=== PATIENT | male | born 1995 | race Caucasian/White ===

== ENCOUNTER 2023-12-22 00:06 | Inpatient (IN) | payer MEDICAID, OTHER ==
[2023-12-22] MEDS ORDERED: HALOPERIDOL LACTATE 5 MG/ML 1 ML VIAL IM PRN (04:12)
[2023-12-22] MEDS ORDERED: LORazepam 2 MG/ML INJ IM PRN (04:12)
[2023-12-22] MEDS ORDERED: MAG HYDROX/AL HYDROX/SIMETH 355 ML BOTTLE PO PRN (04:12)
[2023-12-22] MEDS ORDERED: MAGNESIUM HYDROXIDE 2,400 MG/30 ML CUP PO PRN (04:12)
[2023-12-22] MEDS: LORazepam 1 MG TAB PO PRN (08:18)
[2023-12-22] MEDS ORDERED: LORazepam 1 MG TAB ONE (08:18)
[2023-12-22] MEDS: haloperidoL 5 MG TAB PO PRN (14:07)
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
[2023-12-22] MEDS: PALIPERIDONE 3 MG TAB.ER.24 PO SCH (21:06)
--- NOTE | 2023-12-23 05:24 | P.MDCNMH ---
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 He reports having some discomfort inside his mouth and plaques denies any nausea or vomiting denies any sore throat denies any fevers chills denies any coughing runny nose. -year-old spoke reported bloody bowel movements and blood on wiping however this has not been confirmed by nursing staff patient was advised He experienced an episode like this to keep samples to show nursing staff to confirm diagnosis. He claims that this been going on for at least 8 months Patient otherwise denies any abdominal pain denies any chest pain trouble breathing denies any changes in his urination. Patient denies tobacco smoking illicit drugs or heavy alcohol review of systems Pertinent positives as noted in HPI. All other systems were reviewed and are negative on exam Constitutional: No acute distress, depressed mood Eyes: Anicteric sclerae, moist conjunctiva, Pupils equal round reactive to light ENMT: NC/AT Oropharynx clear, no erythema, or exudates Lungs: Clear to auscultation Clear to percussion Normal respiratory effort, no accessory muscle use Cardiovascular: Heart regular in rate and rhythm, No murmurs, gallops, or rubs No peripheral edema Abdominal: Soft Nontender, no guarding, rebound or rigidity Abdomen moving with respiration Normoactive bowel sounds Skin facial acne and upper chest acne Extremities: No digital cyanosis No clubbing Pedal pulses intact and symmetrical Radial pulses intact and symmetrical No calf tenderness Psychiatric: Alert and oriented to person, place and time Neuro Muscles Strength 4/5 in all 4 extremities Sensation to light touch grossly present throughout Cranial nerves II-XII grossly intact Medications and Allergies Allergies Allergy/AdvReac Type Severity Reaction Status Date / Time No Known Allergies Allergy Verified 12/22/23 04:11 Cranial Nerve Examination - Cranial Nerves Cranial Nerve II- Optic: Intact Cranial Nerve III- Oculomotor: Intact Cranial Nerve IV- Trochlear: Intact Cranial Nerve V- Trigeminal: Intact Cranial Nerve - Abducens: Intact Cranial Nerve VII- Facial: Intact Cranial Nerve VIII- Auditory: Intact Cranial Nerve IX- Glossopharyngeal: Intact Cranial Nerve X- Vagus: Intact Cranial Nerve XI- Accessory: Intact Cranial Nerve XII- Hypoglossal: Intact Assessment and Plan Assessment: No labs available for revision at this time Concerns regarding possible GI bleed Patient advised to show nursing staff samples of his stool and blood on the wipes Check FOBT Concerns regarding oral thrush Nystatin p.o. 4 times daily Obesity Patient advised regarding lifestyle modification weight loss Follow-up blood work Depression suicidal ideation Management per psych Thank you for this consultation
[2023-12-23] MEDS: NYSTATIN 100,000 UNIT/ML SUSP 500,000 UNIT/5 ML CUP PO SCH (08:40)
[2023-12-23] MEDS: SERTRALINE 50 MG TAB PO SCH (08:40)
[2023-12-23 10:44] LABS: Basophils # (A) 0.1 k/uL (0-0.2); Basophils % (A) 1 %; Eosinophils # (A) 0.2 k/uL (0-0.7); Eosinophils % (A) 4 %; HCT 43.3 % (39.0-53.0); Lymphocytes % (A) 17 %; MCH 28.1 pg (25.0-35.0); MCHC 32.4 g/dL (31.0-37.0); MCV 86.6 fL (80.0-100.0); Mean Platelet Volume 7.5; Monocytes # (A) 0.3 k/uL (0-1.0); Monocytes % (A) 6 %; Neutrophils # (A) 3.9 k/uL (1.3-7.7); Neutrophils % (A) 71 %; Platelet Count 382 k/uL (150-450); RDW 12.5 % (11.5-15.5); WBC 5.5 k/uL (3.8-10.6)
[2023-12-23 10:56] LABS: ALT 24 U/L (4-49); AST 21 U/L (17-59); African American GFR (CKD) >90 (>60 ml/min/1.73 sqM); Albumin 4.4 g/dL (3.5-5.0); Alkaline Phosphatase 70 U/L (38-126); Anion Gap 11 mmol/L; Blood Urea Nitrogen 16 mg/dL (9-20); Calcium 9.7 mg/dL (8.4-10.2); Carbon Dioxide 24 mmol/L (22-30); Chloride 105 mmol/L (98-107); Glucose 111 mg/dL (74-99); Non-African American GFR(CKD) >90 (>60 ml/min/1.73 sqM); Potassium 4.2 mmol/L (3.5-5.1); Sodium 140 mmol/L (137-145); Total Bilirubin 0.6 mg/dL (0.2-1.3); Total Protein 7.4 g/dL (6.3-8.2)
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
[2023-12-24 08:58] LABS: Chol/HDL Ratio 3.41 Ratio; VLDL Calculation 13.78 mg/dL (5.00-40.00)
[2023-12-24] MEDS: hydrOXYzine HCL 25 MG TAB PO PRN (20:19)
--- NOTE | 2023-12-25 09:52 | P.PN ---
Progress Note - Text Progress Note Date: 12/25/23 In-Patient Follow-up Chief Complaint: "Lot of anxiety" Subjective: The patient continues to complain of lot of anxiety. He has been using Ativan. Suggested to use Hydroxyzine instead of Ativen due to it's addiction potnetial. The patient agreed. The patient is also c/o of hearing voices. The patient notd that they are still derogatory and want him to kill himself. The patient is not attending groups. He stays to himself. his appetite is poor. The patient feels depressed. Overall, not much improvement. The Invega increased to 6 mg po qhs. The patient's prognosis is gaurded. Leading questions: The patient admitted to Depression and Anxiety. Adimts to SI. HI denied. Adimmted to symptoms consistent with psychosis Hearing voices telling him to kill himself. Sleep and Appetite: Sleep poor. Appetite fine. Behavioral Changes: PRN meds/isolation/restraints/ change in status: None. Change in medical condition: No change. Change in medications: No change. Invega increased to 6 mg po qh. Side effects from Medications: None. Objective- MSE: Alert and attentive. Orientation times three. Dressed and Groomed: Appropriately. Pleasant and cooperative. Psychomotor Activity: Normal. Speech: Normal in tone, quality, and quantity. Mood Depressed and anxious. Affect: Flat, withdrawn SI or HI: Positive for suicide. No homicidal ideation. Perceptual disturbance: Command hallucinations. Thought Content: No paranoia or other delusional thinking noted. Thought Process: Normal. Cognition: Intact Judgment and Insight: Poor. AIMS: Normal. Labs: Reviewed with patients. Diagnosis: no change. Plan and recommendation: Continue current Medications. Increase invega to 6 mg hs. Monitor MS and side effects of medications and adjust medications accordingly. Provide supportive psychotherapy. The patient provided psycho-education. The patient to continue attending the [facility]. Medication Consent with explanation of risk/benefits and side effects: Explainedand obtained
[2023-12-25] MEDS: PALIPERIDONE 6 MG TAB.ER.24 PO SCH (21:15)
--- NOTE | 2023-12-26 16:07 | P.PN ---
Progress Note - Text Progress Note Date: 12/26/23 Follow-up Mediation Review Chief Complaint: I am still hearing voices Subjective: The patient noted that he keeps hearing the voices and they continue to tell me to kill myself. The patient feels that medication may not be working. Discussed alternate agents, the patient agreed for Haldol after weighing risks/benefits and side effects. The patient also indicated that has no desire to get out of the bed. He feels tired. He has not been attending groups. His interaction with staff and peers is poor. He spends most of his time in his room. Leading questions: The patient admitted to Depression and Anxiety. Admitted to SI. Denied HI. Admitted to auditory hallucinations. No other symptoms consistent with psychosis Sleep and Appetite: Sleep impaired. Appetite fine. Change in family/ living/job/financial/daily routine: Homeless. The patient did talk to his father. He is supportive but does not want him home. Change in medical condition: No change. Change in medications: No change. Side effects from Medications: None. Allergies: No change. Objective- MSE: Alert and attentive. Orientation times three. Dressed and Groomed: Appropriately. Pleasant and cooperative. Psychomotor Activity: Normal. Speech: Normal in tone, quality, and quantity. Mood: Depressed and anxious. Affect: Consistent. SI or HI: None. Perceptual disturbance: None. Thought Content: No paranoia or other delusional thinking noted. Thought Process: Normal. Cognition: Intact Judgment and Insight: Poor. AIMS: Normal. Labs: No new labs. Diagnosis: No change. Plan and Recommendations: Continue current Medications. Monitor MS and side effects of medications and adjust medications accordingly. Provide supportive psychotherapy. Provide psychoeducation. The patient to attend [facility]. Medication Consent with explanation of risk/benefits and side effects: Explained and obtained.
[2023-12-26] MEDS: haloperidoL 1 MG TAB PO SCH (21:31)
--- NOTE | 2023-12-27 16:55 | P.PN ---
Progress Note - Text Progress Note Date: 12/27/23 Follow-up Mediation Review Chief Complaint: I am still hearing voices Subjective: The patient noted that he keeps hearing, the voices and they continue to tell me to kill myself. The patient feels that medication may not be working. The patient still spending most of his time in bed. Increase in Zoloft and Haldol was discussed, the patient agreed. The patient remain withdrawn, isolated and very negative. The patient noted that he needs to go to someplace where he can be provided meals and medications. 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 He stated that he cannot take medications or cook. He noted that this leads to be him getting depressed and eventually the voices tell him to kill himself. He sees no hope. He noted that medication helps but depression returns due to his situation. He has not been attending groups. His interaction with staff and peers is poor. He spends most of his time in his room. Leading questions: The patient admitted to Depression and Anxiety. Admitted to SI. Denied HI. Admitted to auditory hallucinations. No other symptoms consistent with psychosis Sleep and Appetite: Sleep impaired. Appetite fine. Change in family/ living/job/financial/daily routine: Homeless. The patient did talk to his father. He is supportive but does not want him home. Change in medical condition: No change. Change in medications: No change. Side effects from Medications: None. Allergies: No change. Objective- MSE: Alert and attentive. Orientation times three. Dressed and Groomed: Appropriately. Pleasant and cooperative. Psychomotor Activity: Normal. Speech: Normal in tone, quality, and quantity. Mood: Depressed and anxious. Affect: Consistent. SI or HI: None. Perceptual disturbance: None. Thought Content: No paranoia or other delusional thinking noted. Thought Process: Normal. Cognition: Intact Judgment and Insight: Poor. AIMS: Normal. Labs: No new labs. Diagnosis: No change. Plan and Recommendations: Continue current Medications. Monitor MS and side effects of medications and adjust medications accordingly. Provide supportive psychotherapy. Provide psychoeducation. The patient to attend [facility] activities. Medication Consent with explanation of risk/benefits and side effects: Explained and obtained.
[2023-12-27] MEDS: haloperidoL 5 MG TAB PO SCH (22:15)
[2023-12-28] MEDS: SERTRALINE 100 MG TAB PO SCH (08:27)
--- NOTE | 2023-12-28 17:05 | P.PN ---
Progress Note - Text Progress Note Date: 12/28/23 Follow-up Mediation Review Chief Complaint: I am still hearing voices Subjective: The patient noted that he keeps hearing, the voices and they continue to tell him to kill myself. The patient feels that medication may not be working. The patient reported feeling frustrated and hopeless. He sees no way out of his situation. He sees no light at the end of the tunnel. He does not want to continue like this. . He has not been attending groups. His interaction with staff and peers is poor. He spends most of his time in his room. Leading questions: The patient admitted to Depression and Anxiety. Admitted to SI. Denied HI. Admitted to auditory hallucinations. No other symptoms consistent with psychosis Sleep and Appetite: Sleep impaired. Appetite fine. Change in family/ living/job/financial/daily routine: Homeless. The patient did talk to his father. He is supportive but does not want him home. Change in medical condition: No change. Change in medications: No change. Side effects from Medications: None. Allergies: No change. Objective- MSE: Alert and attentive. Orientation times three. Dressed and Groomed: Appropriately. Pleasant and cooperative. Psychomotor Activity: Normal. Speech: Normal in tone, quality, and quantity. Mood: Depressed and anxious. Affect: Consistent. SI or HI: None. Perceptual disturbance: None. Thought Content: No paranoia or other delusional thinking noted. Thought Process: Normal. Cognition: Intact Judgment and Insight: Poor. AIMS: Normal. Labs: No new labs. Diagnosis: No change. Plan and Recommendations: Continue current Medications. Monitor MS and side effects of medications and adjust medications accordingly. Provide supportive psychotherapy. Provide psychoeducation. The patient to attend [facility]. Medication Consent with explanation of risk/benefits and side effects: Explained and obtained.
--- NOTE | 2023-12-29 15:12 | P.PN ---
Progress Note - Text Progress Note Date: 12/29/23 Follow-up Mediation Review Chief Complaint: I am still hearing voices Subjective: The patient noted that he keeps hearing, the voices and they continue to tell me to kill myself. The patient reports that he is anxious and depressed. The patient reported feeling frustrated and hopeless. The patient was gently redirected and suggested to be more independent and not focus on being helpless. The patient noted that he has worked with Brdaley, his counselor, for placement but nothing works. According to the [facility]. A request through [facility] was made for special [facility] but the patient was rejected because he was assessed to be capable of taking medications and cooking. The further noted that it is not living situation alone but the voices and depression is bothering him too. Severe. He does not see much improvement. . He has not been attending groups. His interaction with staff and peers is poor. He spends most of his time in his room. Leading questions: The patient admitted to Depression and Anxiety. Admitted to SI. Denied HI. Admitted to auditory hallucinations. No other symptoms consistent with psychosis Sleep and Appetite: Sleep impaired. Appetite fine. Change in family/ living/job/financial/daily routine: Homeless. The patient did talk to his father. He is supportive but does not want him home. Change in medical condition: No change. Change in medications: No change. Side effects from Medications: None. Allergies: No change. Objective- MSE: Alert and attentive. Orientation times three. Dressed and Groomed: Appropriately. Pleasant and cooperative. Psychomotor Activity: Normal. Speech: Normal in tone, quality, and quantity. Mood: Depressed and anxious. Affect: Consistent with mood. SI or HI: The patient hearing voices to kill himself. He feels suicidal. Denied Homicidal thoughts. Perceptual disturbance: No over hallucinatory behavior noted. Thought Content: No paranoia or other delusional thinking noted. Thought Process: Normal. Cognition: Intact Judgment and Insight: Poor. AIMS: Normal. Labs: No new labs. Diagnosis: No change. Plan and Recommendations: Continue current Medications. Monitor MS and side effects of medications and adjust medications accordingly. Provide supportive psychotherapy. Provide psychoeducation. The patient to attend [facility] activities. Medication Consent with explanation of risk/benefits and side effects: Explained and obtained.
[2023-12-30] MEDS: SERTRALINE 100 MG TAB PO SCH (08:21)
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
--- NOTE | 2023-12-31 08:59 | P.PN ---
Subjective Progress Note Date: 12/31/23 Principal diagnosis: Schizoaffective disorder, depressed type. Congenital musculoskeletal disorder Patient Name: Oleg Crowe Date of : [birth year] Patient Status: Inpatient Attending Provider: Cyril Dumas Date: 12/30/23 Initialization Date: 12/29/23 15:11 The patient was seen and chart was reviewed and case discussed with nursing staff Patient was seen in as he was walking down the hallway and agreed to talk to t his securities underwriter Patient again brought up his placement in his current needs due to his impaired physical abilities as well as since he ate the feces Patient continues to reiterate about needing a residential home where he could have more support and help Patient states that he has been depressed and that he still has some suicidal thoughts but no plans at this time Mental status examination: Alert and attentive. Orientation times three Dressed and Groomed: In hospital gown significant acne on his face cooperative. Psychomotor Activity: Normal. Speech: N monotone voice quality, and quantity. Mood: Depressed and anxious. Affect: Consistent with mood. SI or HI: The patient notes that he is suicidal. He does not have homicidal ideation t present. Perceptual disturbance: . The patient claims to be hearing voices. Thought Content: No paranoia or other delusional thinking noted. Thought Process: Normal. Cognition: Intact Judgment and Insight: Poor. AIMS: Normal Labs: Available labs reviewed. Diagnosis: Schizoaffective disorder, depressed type. Plan and Recommendations: Agree with Dr. Cheng treatment plan Continue current medications as prescribed Monitor MS and side effects of medications and adjust medications accordingly. Provide supportive psychotherapy and psychoeducation. The patient provided psychoeducation. The patient provided with substance abuse counselling and advised to attend AA The patient to attend [facility]. technical services analyst on board regarding discharge planning Ace Upton MD Active Medications Generic Name Dose Route Start Last Admin Trade Name Freq PRN Reason Stop Dose Admin Acetaminophen 650 mg 12/22/23 04:12 Acetaminophen Tab 325 Mg Tab PO Q4HR PRN Mild Pain (Scale 1 to 3) Al Hydroxide/Mg Hydroxide 30 ml 12/22/23 04:12 Mag Hydrox/Al Hydrox/Simeth 355 Ml Bottle PO Q4HR PRN GI Upset Haloperidol 5 mg 12/22/23 04:12 12/25/23 21:17 Haloperidol 5 Mg Tab PO 5 mg Q6HR PRN Administration Agitation Haloperidol 5 mg 12/27/23 21:00 12/30/23 08:21 Haloperidol 5 Mg Tab PO 5 mg BID REJI Administration Haloperidol Lactate 5 mg 12/22/23 04:12 Haloperidol Lactate 5 Mg/Ml 1 Ml Vial IM Q6HR PRN Severe Agitation Hydroxyzine HCl 25 mg 12/22/23 14:15 12/28/23 13:40 Hydroxyzine Hcl 25 Mg Tab PO 25 mg TID PRN Administration Agitation or Acute Anxiety Ibuprofen 600 mg 12/22/23 04:12 Ibuprofen 600 Mg Tab PO Q6HR PRN Moderate Pain (Scale 4 to 6) Lorazepam 1 mg 12/22/23 04:12 12/29/23 13:43 Lorazepam 1 Mg Tab PO 1 mg Q6HR PRN Administration Anxiety Lorazepam 1 mg 12/22/23 04:12 Lorazepam 2 Mg/Ml Inj IM Q6HR PRN Severe Agitation Magnesium Hydroxide 2,400 mg 12/22/23 04:12 Magnesium Hydroxide 2,400 Mg/30 Ml Cup PO DAILY PRN Constipation Nystatin 500,000 unit 12/23/23 09:00 12/30/23 08:21 Nystatin 100,000 Unit/Ml Susp 500,000 Unit/5 Ml Cup PO 500,000 unit QID REJI Administration Protocol Sertraline HCl 150 mg 12/30/23 09:00 12/30/23 08:21 Sertraline 100 Mg Tab PO 150 mg DAILY REJI Administration Objective - Vital Signs Vital signs: Vital Signs Temp 98.0 F 12/31/23 06:36 Pulse 52 L 12/31/23 06:36 Resp 16 12/31/23 06:36 BP 110/52 12/31/23 06:36 Pulse Ox 98 12/31/23 06:36 FiO2 - Labs CBC & Chem 7: 12/23/23 09:58 12/23/23 09:58
[2024-01-01] MEDS: haloperidoL 5 MG TAB PO SCH (16:33)
--- NOTE | 2024-01-01 21:54 | P.PN ---
Progress Note - Text Progress Note Date: 01/01/24 Follow-up Mediation Review Chief Complaint: I am still hearing voices Subjective: The patient noted that he keeps hearing voices. The patient noted that he feels depressed and anxious. He noted that he needs a staffed [place] [facility]. He does not want to live in motels. He has not been attending groups. His interaction with staff and peers is poor. He spends most of his time in his room. Leading questions: The patient admitted to Depression and Anxiety. Admitted to SI. Denied HI. Admitted to auditory hallucinations. No other symptoms consistent with psychosis Sleep and Appetite: Sleep impaired. Appetite fine. Change in family/ living/job/financial/daily routine: Homeless. Change in medical condition: No change. Change in medications: No change. Side effects from Medications: None. Allergies: No change. Objective- MSE: Alert and attentive. Orientation times three. Dressed and Groomed: Appropriately. Pleasant and cooperative. Psychomotor Activity: Normal. Speech: Normal in tone, quality, and quantity. Mood: Depressed and anxious. Affect: Consistent with mood. SI or HI: The patient hearing voices to kill himself. He feels suicidal. Denied Homicidal thoughts. Perceptual disturbance: No overt hallucinatory behavior noted. Thought Content: No paranoia or other delusional thinking noted. Thought Process: Normal. Cognition: Intact Judgment and Insight: Poor. AIMS: Normal. Labs: No new labs. Diagnosis: No change. Plan and Recommendations: Continue current Medications. Increased Zoloft to 200 mg po daily. Haldol blood level ordered. Haldol increased to 15 mg po tid. Monitor MS and side effects of medications and adjust medications accordingly. Suggested to obtain report of patients training/rehab for cooking and taking medications independently from [facility] food general manager. Provide supportive psychotherapy. Provide psychoeducation. The patient to attend [facility]. Medication Consent with explanation of risk/benefits and side effects: Explained and obtained.
[2024-01-02] MEDS: SERTRALINE 100 MG TAB PO SCH (08:14)
--- NOTE | 2024-01-02 20:45 | P.PN ---
Progress Note - Text Progress Note Date: 01/02/24 Follow-up Mediation Review Chief Complaint: I am still hearing voices Subjective: The patient noted that he keeps hearing voices. He complains of being mentally ill. He does not get out of his room. He stays in his bed. He goes for meals and to get his medications. He feels helpless with his situation. He remains negative and pessimistic about his future. Discussed giving an adjunctive treatment boosting the effects of antidepressant. The patient consented. He has not been attending groups. His interaction with staff and peers is poor. He spends most of his time in his room. Leading questions: The patient admitted to Depression and Anxiety. Admitted to SI. Denied HI. Admitted to auditory hallucinations. No other symptoms consistent with psychosis Sleep and Appetite: Sleep impaired. Appetite fine. Change in family/ living/job/financial/daily routine: Homeless. Change in medical condition: No change. Change in medications: No change. Side effects from Medications: None. Allergies: No change. Objective- MSE: Alert and attentive. Orientation times three. Dressed and Groomed: Appropriately. Pleasant and cooperative. Psychomotor Activity: Normal. Speech: Normal in tone, quality, and quantity. Mood: Depressed and anxious. Affect: Sad and Flat SI or HI: The patient hearing voices to kill himself. He feels suicidal. Denied Homicidal thoughts. Perceptual disturbance: No overt hallucinatory behavior noted. Thought Content: No paranoia or other delusional thinking noted. Thought Process: Normal. Cognition: Intact Judgment and Insight: Poor. AIMS: Normal. Labs: No new labs. Diagnosis: No change. Plan and Recommendations: Continue current Medications. Increased Zoloft to 200 mg po daily.Monitor MS and side effects of medications and adjust medications accordingly. Provide supportive psychotherapy. Provide psychoeducation. The patient to attend [facility] activities. Medication Consent with explanation of risk/benefits and side effects: Explained and obtained.
[2024-01-02] MEDS: LITHIUM CARBONATE 150 MG CAP PO SCH (21:49)
--- NOTE | 2024-01-03 11:54 | P.PN ---
Progress Note - Text Progress Note Date: 01/03/24 Follow-up Mediation Review Chief Complaint: I am not mentally well Subjective: The patient noted that he keeps hearing voices telling him to kill himself. I cannot get rid of these voices. I am taking my medications. He complains of being mentally ill. He does not get out of his room. He stays in his bed. He goes for meals and to get his medications. He feels helpless with his situation. He remains negative and pessimistic about his future. The patient took his Li without any side effects. He has not been attending groups. His interaction with staff and peers is poor. He spends most of his time in his room. Leading questions: The patient admitted to Depression and Anxiety. Admitted to SI. Denied HI. Admitted to command auditory hallucinations. No other symptoms consistent with psychosis Sleep and Appetite: Sleep impaired. Appetite fine. Change in family/ living/job/financial/daily routine: Homeless. Change in medical condition: No change. Change in medications: No change. Side effects from Medications: None. Allergies: No change. Objective- MSE: Alert and attentive. Orientation times three. Dressed and Groomed: Appropriately. Pleasant and cooperative. Psychomotor Activity: Normal. Speech: Normal in tone, quality, and quantity. Mood: Depressed and anxious. Affect: Sad and Flat SI or HI: The patient hearing voices to kill himself. He feels suicidal. Denied Homicidal thoughts. Perceptual disturbance: No overt hallucinatory behavior noted. Thought Content: No paranoia or other delusional thinking noted. Thought Process: Normal. Cognition: Intact Judgment and Insight: Poor. AIMS: Normal. Labs: No new labs. Diagnosis: No change. Plan and Recommendations: Continue current Medications. Increase the dose of Li to 150 mg tid. Monitor MS and side effects of medications and adjust medications accordingly. Provide supportive psychotherapy. Provide psychoeducation. The patient to attend [facility] activities. Medication Consent with explanation of risk/benefits and side effects: Explained and obtained.
--- NOTE | 2024-01-04 10:23 | P.PN ---
Progress Note - Text Progress Note Date: 01/04/24 Follow-up Mediation Review Chief Complaint: I am the same Subjective: The patient states hearing voices telling him to kill himself. He continues to negative, pessimistic, no energy, desire, interest, and hope. The patient sees no future for himself. He continues to be isolated. Sleeps in bed. He only comes out the room to eat and take his medication. He reported no side effects from LI. Discussed increase the dose to 300 mg twice a day. The patient consented He has not been attending groups. His interaction with staff and peers is poor. He spends most of his time in his room. Leading questions: The patient admitted to Depression and Anxiety. Admitted to SI. Denied HI. Admitted to command auditory hallucinations. No other symptoms consistent with psychosis Sleep and Appetite: Sleep impaired. Appetite fine. Change in family/ living/job/financial/daily routine: Homeless. Change in medical condition: No change. Change in medications: No change. Side effects from Medications: None. Allergies: No change. Objective- MSE: Alert and attentive. Orientation times three. Dressed and Groomed: Appropriately. Pleasant and cooperative. Psychomotor Activity: Normal. Speech: Normal in tone, quality, and underproductive. The patient does not initiate conversation. Mood: Depressed and anxious. Affect: Sad and Flat SI or HI: The patient hearing voices to kill himself. He feels suicidal. Denied Homicidal thoughts. Perceptual disturbance: No overt hallucinatory behavior noted. Thought Content: No paranoia or other delusional thinking noted. Thought Process: Normal. Cognition: Intact Judgment and Insight: Poor. AIMS: Normal. Labs: No new labs. Diagnosis: No change. Plan and Recommendations: Continue current Medications. Increase the dose of Li to 300 bid. Monitor MS and side effects of medications and adjust medications accordingly. Provide supportive psychotherapy. Provide psychoeducation. The patient to attend [facility] activities. Medication Consent with explanation of risk/benefits and side effects: Explained and obtained.
--- NOTE | 2024-01-05 16:59 | P.PN ---
Progress Note - Text Progress Note Date: 01/05/24 Follow-up Mediation Review Chief Complaint: The patient remains the same Subjective: The patient states hearing voices telling him to kill himself. He continues to be negative, pessimistic, tired. He has no interest, or hope. The patient sees no future for himself. He continues to be isolated. Sleeps in bed. He only comes out the room to eat and take his medication. He reported no side effects from LI. Discussed increase the dose to 300 mg twice a day. The patient consented He has not been attending groups. His interaction with staff and peers is poor. He spends most of his time in his room. Leading questions: The patient admitted to Depression and Anxiety. Admitted to S I. Denied HI. Admitted to command auditory hallucinations. No other symptoms consistent with psychosis Sleep and Appetite: Sleep impaired. Appetite fine. Change in family/ living/job/financial/daily routine: Homeless. Change in medical condition: No change. Change in medications: No change. Side effects from Medications: None. Allergies: No change. Objective- MSE: Alert and attentive. Orientation times three. Dressed and Groomed: Appropriately. Pleasant and cooperative. Psychomotor Activity: Normal. Speech: Normal in tone, quality, and underproductive. The patient does not initiate conversation. Mood: Depressed and anxious. Affect: Sad and Flat SI or HI: The patient hearing voices to kill himself. He feels suicidal. Denied Homicidal thoughts. Perceptual disturbance: No overt hallucinatory behavior noted. Thought Content: No paranoia or other delusional thinking noted. Thought Process: Normal. Cognition: Intact Judgment and Insight: Poor. AIMS: Normal. Labs: No new labs. Diagnosis: No change. Plan and Recommendations: Continue current Medications. Fishtail increased to 300 mg bid. Monitor MS and side effects of medications and adjust medications accordingly. Provide supportive psychotherapy. Provide psychoeducation. The patient to attend [facility] activities. Medication Consent with explanation of risk/benefits and side effects: Explained and obtained.
[2024-01-05] MEDS: LITHIUM CARBONATE 300 MG CAP PO SCH (21:14)
--- NOTE | 2024-01-06 14:19 | P.PN ---
Subjective Progress Note Date: 01/06/24 Principal diagnosis: Schizoaffective depressed Subjective the patient says he has no energy can't concentrate anxiety is fairly well controlled. He says is tolerating the new medicine okay he was on intake and that was stopped and replaced with lithium is just getting started on that. Says he slept okay appetites good just has no energy. Objective he moves slow lying in bed all day flat affect slow responses no eye contact denies any psychotic elements. He is oriented speech does not MIs content one-word responses. No evidence of responding to voices or seeing anything. Self-care is minimal is in a hospital gown. Assessment patient definitely not doing well depression is severe and is on huge dose of Zoloft were adding lithium as is pretty good for depression and moods in general although at some point he might want to consider Wellbutrin for energy and focus is that is really low Plan: at this point leave medicine word sat find out whether he tolerates the lithium and hopefully get some benefit from that he also needs some social work help figuring out where to go from here he has no supports and no people in his life Objective - Vital Signs Vital signs: Vital Signs Temp 97.9 F 01/06/24 06:00 Pulse 60 01/06/24 06:00 Resp 17 01/06/24 06:00 BP 103/58 01/06/24 06:00 Pulse Ox 95 01/06/24 06:00 FiO2 - Labs CBC & Chem 7: 12/23/23 09:58 12/23/23 09:58
--- NOTE | 2024-01-07 09:38 | P.PN ---
Subjective Progress Note Date: 01/07/24 Principal diagnosis: Schizoaffective depressed Subjective: The patient says he has no energy can't concentrate anxiety is fairly well controlled. He says that he is tolerating the new medicine okay. He said he didn't have to get up in the night to urinate like galina before a lthough he is urinating somewhat more often during the day however he did not sleep well says he gets to sleep but then wakes up and has trouble going back to sleep. He says he is never taken trazodone or melatonin past. Trazodone can extend the QTc interval which U she had 50 mg as not a problem. Objective: he moves slow lying in bed all day flat affect slow responses no eye contact denies any psychotic elements. He is oriented speech does not MIs content one-word responses. No evidence of responding to voices or seeing anything. Self-care is minimal is in a hospital gown. Assessment: The patient definitely is not doing well, depression is severe and is on huge dose of Zoloft. We are adding lithium as is pretty good for depression and moods in general although at some point he might want to consider Wellbutrin for energy and focus is that is really low. He is not much lithium b ut was paying all the time which is usually an indication of work I think we need to grab a level tomorrow morning increase is indicated at that time. However he can get a decent night sleep that doesn't make it hard for him to stabilize so that try adding in 50 of trazodone with 2 of melatonin an hour before Plan: Add in medicine for sleep continue the low-dose lithium and get a level Objective - Vital Signs Vital signs: Vital Signs Temp 98.4 F 01/07/24 06:31 Pulse 61 01/07/24 06:31 Resp 16 01/07/24 06:31 BP 97/53 01/07/24 06:31 Pulse Ox 95 01/06/24 06:00 FiO2 - Labs CBC & Chem 7: 12/23/23 09:58 12/23/23 09:58
[2024-01-07] MEDS: MELATONIN 1 MG TAB PO SCH (21:07)
[2024-01-07] MEDS: traZODone HCL 50 MG TAB PO SCH (21:07)
--- NOTE | 2024-01-08 17:01 | P.PN ---
Progress Note - Text Progress Note Date: 01/08/24 Follow-up Mediation Review Chief Complaint: The patient remains the same Subjective: The patient states hearing voices telling him to kill himself. He continues to be negative, pessimistic, tired. He rated his depression at 0 on VAS. 10 being the best mood and 0 being the worst. The patient exhibited no EPS. The patient sees no future for himself. He continues to be isolated. Sleeps in bed. He only comes out the room to eat and take his medication. He reported no side effects from medications. Discussed increasing [place] to 300 mg tid and changing Zoloft to Effexor. Decrease Zoloft to 100 mg. Add Effexor after tapering off Zoloft to 50 mg.The patient has side effects from Wellbutrin. He has not been attending groups. His interaction with staff and peers is poor. He spends most of his time in his room. Leading questions: The patient admitted to Depression and Anxiety. Admitted to SI. Denied HI. Admitted to command auditory hallucinations. No other symptoms consistent with psychosis Sleep and Appetite: Sleep impaired. Appetite fine. Change in family/ living/job/financial/daily routine: Homeless, unemployed, no family support. Change in medical condition: No change. Change in medications: As stated above. Side effects from Medications: None. All Objective- MSE: Alert and attentive. Orientation times three. Dressed and Groomed: Appropriately. Pleasant and cooperative. Psychomotor Activity: Normal. Speech: Normal in tone, quality, and underproductive. The patient does not initiate conversation. Mood: Depressed and anxious. Affect: Sad and Flat SI or HI: The patient hearing voices to kill himself. He feels suicidal. Denied Homicidal thoughts. Perceptual disturbance: No overt hallucinatory behavior noted. Thought Content: No paranoia or other delusional thinking noted. Thought Process: Normal. Cognition: Intact Judgment and Insight: Poor. AIMS: Normal. Labs: Haldol Level 6. Diagnosis: No change. Plan and Recommendations: Continue current Medications. [place] increased to 300 mg tid. Decrease Zoloft to 100 mg daily.Monitor MS and side effects of medications and adjust medications accordingly. Provide supportive psychotherapy. Provide psychoeducation. The patient to attend carrington activities. Medication Consent with explanation of risk/benefits and side effects: Explained and obtained.
[2024-01-08] MEDS: LITHIUM CARBONATE 300 MG CAP PO SCH (21:01)
[2024-01-09] MEDS: SERTRALINE 100 MG TAB PO SCH (08:44)
--- NOTE | 2024-01-09 12:58 | P.PN ---
Progress Note - Text Progress Note Date: 01/09/24 Follow-up Mediation Review Chief Complaint: The patient remains the same Subjective: The patient states hearing voices telling him to kill himself. He continues to be negative, pessimistic, tired. The patient exhibited no EPS. The patient sees no future for himself. He continues to be isolated. Sleeps in bed. He only comes out the room to eat and take his medication. He reported no side effects from medications. discussed with patient Ketamine and ECT treatments, if the current regimen fails. The patient has expressed interest in ECT. The process to send patient for ECT has been initiated. He has not been attending groups. His interaction with staff and peers is poor. He spends most of his time in his room. Leading questions: The patient admitted to Depression and Anxiety. Admitted to SI. Denied HI. Admitted to command auditory hallucinations. No other symptoms consistent with psychosis Sleep and Appetite: Sleep impaired. Appetite fine. Change in family/ living/job/financial/daily routine: Homeless, unemployed, no family support. Change in medical condition: No change. Change in medications: As stated above. Side effects from Medications: None. All Objective- MSE: Alert and attentive. Orientation times three. Dressed and Groomed: Appropriately. Pleasant and cooperative. Psychomotor Activity: Normal. Speech: Normal in tone, quality, and underproductive. The patient does not initiate conversation. Mood: Depressed and anxious. Affect: Sad and Flat SI or HI: The patient hearing voices to kill himself. He feels suicidal. Denied Homicidal thoughts. Perceptual disturbance: No overt hallucinatory behavior noted. Thought Content: No paranoia or other delusional thinking noted. Thought Process: Normal. Cognition: Intact Judgment and Insight: Poor. AIMS: Normal. Labs: Haldol Level 6. Diagnosis: No change. Plan and Recommendations: Continue current Medications. .Monitor MS and side effects of medications and adjust medications accordingly. Provide supportive psychotherapy. Provide psychoeducation. The patient to attend carrington activities. Medication Consent with explanation of risk/benefits and side effects: Explained and obtained.
--- NOTE | 2024-01-10 11:55 | P.PN ---
Progress Note - Text Progress Note Date: 01/10/24 Follow-up Mediation Review Chief Complaint: The am no good Subjective: The patient states hearing voices telling him to kill himself. He continues to be negative, pessimistic, tired. He sees no improvement with adding Li. Explained patient that Zoloft will be reduced to 50 mg and Wellbutrin will be added. Contrary to before the patient noted that he took Wellbutrin only one time. He stated that he did not have any side effects or benefit. Overall, no change in patients MS He has not been attending groups. His interaction with staff and peers is poor. He spends most of his time in his room. Leading questions: The patient admitted to Depression and Anxiety. Admitted to SI. Denied HI. Admitted to command auditory hallucinations. No other symptoms consistent with psychosis Sleep and Appetite: Sleep impaired. Appetite fine. Change in family/ living/job/financial/daily routine: No change. Change in medical condition: No change. Change in medications: As stated above. Side effects from Medications: None. All Objective- MSE: Alert and attentive. Orientation times three. Dressed and Groomed: Appropriately. Pleasant and cooperative. Psychomotor Activity: Normal. Speech: Normal in tone, quality, and underproductive. The patient does not initiate conversation. Mood: Depressed and anxious. Affect: Sad and Flat SI or HI: The patient hearing voices to kill himself. He feels suicidal. Denied Homicidal thoughts. Perceptual disturbance: No overt hallucinatory behavior noted. Thought Content: No paranoia or other delusional thinking noted. Thought Process: Normal. Cognition: Intact Judgment and Insight: Poor. AIMS: Normal. Labs: No new labs. Ordered Li level Diagnosis: No change. Plan and Recommendations: Continue current Medications. Add Wellbutrin 100 mg po daily. Monitor MS and side effects of medications and adjust medications accordingly. Provide supportive psychotherapy. Provide psychoeducation. The patient to attend carrington activities. Medication Consent with explanation of risk/benefits and side effects: Explained and obtained.
[2024-01-11] MEDS: buPROPion SR 100 MG TABLET.ER PO SCH (08:37)
[2024-01-11] MEDS: SERTRALINE 50 MG TAB PO SCH (08:38)
--- NOTE | 2024-01-11 15:49 | P.PN ---
Progress Note - Text Progress Note Date: 01/11/24 Follow-up Mediation Review Chief Complaint: I feel the same Subjective: The patient continues to hear voices telling him to kill himself. He continues to stay in bed and appears resigned. He shows no strength to fight with his illness. He spends all his time in bed. He feels worthless, helpless, and very depressed. He noted that the medications are not helping. His Garceno level is 0.4. He shows some increase in acne on his face. Exacerbation of acne is one of the side effects of Garceno. Discussed with the patient. He indicated that he has had them for a longtime. He did not seem to be concerned about increased acne. Will monitor and hold off from increasing the Garceno at this time. He reported no side effects. Overall, no change in patients MS He has not been attending groups. His interaction with staff and peers is poor. He spends most of his time in his room. Leading questions: The patient admitted to Depression and Anxiety. Admitted to SI. Denied HI. Admitted to command auditory hallucinations. No other symptoms consistent with psychosis Sleep and Appetite: Sleep impaired. Appetite fine. Change in family/ living/job/financial/daily routine: No change. Change in medical condition: No change. Change in medications: As stated above. Side effects from Medications: None. All Objective- MSE: Alert and attentive. Orientation times three. Dressed and Groomed: Appropriately. Pleasant and cooperative. Psychomotor Activity: Normal. Speech: Normal in tone, quality, and underproductive. The patient does not initiate conversation. Mood: Depressed and anxious. Affect: Sad and Flat SI or HI: The patient hearing voices to kill himself. He feels suicidal. Denied Homicidal thoughts. Perceptual disturbance: No overt hallucinatory behavior noted. Thought Content: No paranoia or other delusional thinking noted. Thought Process: Normal. Cognition: Intact Judgment and Insight: Poor. AIMS: Normal. Labs: No new labs. Li level 0.4 Diagnosis: No change. Plan and Recommendations: Continue current Medications. Increase to Wellbutrin 150 mg po daily. Increase Haldol to 20 mg. Monitor MS and side effects of medications and adjust medications accordingly. Provide supportive psychotherapy. Provide psychoeducation. The patient to attend carrington activities. Medication Consent with explanation of risk/benefits and side effects: Explained and obtained.
[2024-01-11] MEDS: haloperidoL 5 MG TAB PO SCH (21:21)
[2024-01-12] MEDS: buPROPion SR 150 MG TABLET.ER PO SCH (08:32)
--- NOTE | 2024-01-12 13:54 | P.PN ---
Progress Note - Text Progress Note Date: 01/12/24 This is a second opinion on patient's treatment and recommendation for care completed by Dr. Simon IDENTIFYING DATA: This patient is a 28-year-old male single, is homeless, no kids, no income. HISTORY OF PRESENT ILLNESS: Retail Store Associate was requested to evaluate patient for a second opinion on patient's treatment and recommendations for ECT. Patient was admitted to the mental health unit as a transfer from [facility] on 12/21, patient apparently was demonstrating auditory hallucinations, attempted suicide by trying to eat his own feces. Patient apparently was recently in alf as well, was endorsing depression and suicidal ideations auditory hallucinations. Patient has been on several different medications since being on the unit including Wellbutrin, haloperidol, Vistaril, lithium, Invega this has been discontinued, Zoloft, trazodone. Patient apparently has not been responding to his medications mainly isolating in his room not caring for self. [employer] Store Associate attempted to see patient at the bedside today after he ate lunch. Patient was agreeable to speak to senior medical writer, he appears to have a blunted affect, fairly concrete. He was attempting to cooperate. Claiming that he is still hearing voices telling him to kill himself mainly by eating feces. He claims that this has been going on for quite some time. States that he is still having the thoughts of harming himself however no specific plan, denies any visual hallucinations or homicidal ideations. He claims that he is eating fairly, sleep has been poor. He was fairly vague about his stressors however did state that he has been homeless for 3 years and has been difficult. Did claim that he was recently in alf for arson charges. He claims that he cannot think of any medications that have helped him in the past however cannot name many at all. States that he has not had ECT in the past however is open to trying it if needed. Patients admits to using no recreational drugs MENTAL STATUS EXAM: General Appearance: Patient appears to be constricted in affect, acne, short hair, wearing hospital gown stated age is alert, temps to be cooperative. Patient appears to have [fair] hygiene and grooming wearing hospital gown with poor eye contact. Behavior: [Patient is calmly lying in bed without any agitated behavior.] Vague. Speech: Patient's speech is fluent and nonpressured. Monotone. [place] Mood/Affect: Patient reports their mood is "[depressed and anxious]", affect is congruent and blunted Suicidality/Homicidality: Patient is that he is having suicidal thoughts with plans to eat his own feces, denies any homicidal ideations. Perceptions: Patient denies any visual hallucinations however he does state that he has auditory hallucinations telling him to kill himself. Though content/process: There is no evidence of any delusional thought content and thought process is linear and goal-directed. [place], no paranoia. Vague and poverty of content Memory and concentration: AOX3, grossly intact for the purposes of this session. Can spell "WORLD" backwards Judgment and insight: [poor] IMPRESSIONS: Schizoaffective disorder, depressed type PLAN: -Patient continues to require inpatient psychiatric hospitalization for further treatment of his psychotic symptoms and depression. -At this time would recommend attempting to try a TCA or MAOI for severe treatment resistant depression and also consider clozapine for psychosis -If the above medications are not helping improve his symptoms then I would agree with going forward with ECT treatment for treatment resistance. Patient states that he would agreeable to this if need be and would sign consent form.
--- NOTE | 2024-01-12 15:32 | P.PN ---
Progress Note - Text Progress Note Date: 01/12/24 Follow-up Mediation Review Chief Complaint: I feel the same Subjective: The patient continues to hear voices telling him to kill himself. He continues to stay in bed and appears resigned. He shows no strength to fight with his illness. His acne appeared slightly better. No change in Li was made. The patient will be continued on the same dose Li. His blood level is 0.7. He will be kept on combination of Wellbutrin and Zoloft to better titrate the dose with minimal side effects. The patient continues to show severe depression with much improvement at this time. He reported no side effects. Overall, no change in patients MS He has not been attending groups. His interaction with staff and peers is poor. He spends most of his time in his room. Leading questions: The patient admitted to Depression and Anxiety. Admitted to SI. Denied HI. Admitted to command auditory hallucinations. No other symptoms consistent with psychosis Sleep and Appetite: Sleep impaired. Appetite fine. Change in family/ living/job/financial/daily routine: No change. Change in medical condition: No change. Change in medications: As stated above. Side effects from Medications: None. All Objective- MSE: Alert and attentive. Orientation times three. Dressed and Groomed: Appropriately. Pleasant and cooperative. Psychomotor Activity: Normal. Speech: Low toned , quality, and underproductive. The patient does not initiate conversation. Mood: Depressed and anxious. Affect: Sad and Flat SI or HI: The patient hearing voices to kill himself. He feels suicidal. Denied Homicidal thoughts. Perceptual disturbance: No overt hallucinatory behavior noted. Thought Content: No paranoia or other delusional thinking noted. Thought Process: Normal. Cognition: Intact Judgment and Insight: Poor. AIMS: Normal. Labs: No new labs. Li level 0.4 Diagnosis: No change. Plan and Recommendations: Continue current Medications. Increase to Wellbutrin 150 mg po daily. Increase Haldol to 20 mg. Monitor MS and side effects of medications and adjust medications accordingly. Provide supportive psychotherapy. Provide psychoeducation. The patient to attend carrington activities. Medication Consent with explanation of risk/benefits and side effects: Explained and obtained.
--- NOTE | 2024-01-13 10:59 | P.PN ---
Progress Note - Text Progress Note Date: 01/13/24 Interval History: Patient was seen bedside this morning and was directable and agreeable to speak with typewriter operator automatic. He states that he has been feeling "terrible". Endorses command auditory hallucinations telling him to kill himself and to "eat my feces and drink my urine". He also endorses suicidal ideation. He does not currently feel that the medications have improved his hallucinations since yesterday. Endorses fair sleep and appetite. He has been resting in bed and is disinterested in participating on the milieu. Encouraged to color in his room and behavioral activation. Reports that he has been feeling more slowed down. Potential parkinsonism from Haldol and agreeable with Cogentin. Denies side effects otherwise. Mental Status Exam: General Appearance: Patient appears to be constricted in affect, acne, short hair, wearing hospital gown stated age is alert, temps to be cooperative. Patient appears to have [fair] hygiene and grooming wearing hospital gown with poor eye contact. Behavior: [Patient is calmly lying in bed without any agitated behavior.] Vague. Speech: Patient's speech is fluent and nonpressured. Monotone. [place] Mood/Affect: Patient reports their mood is "depressed", affect is congruent and blunted Suicidality/Homicidality: Patient is that he is having suicidal thoughts with plans to eat his own feces, denies any homicidal ideations. Perceptions: Patient denies any visual hallucinations however he does state that he has auditory hallucinations telling him to kill himself. Though content/process: There is no evidence of any delusional thought content and thought process is linear and goal-directed. [place], no paranoia. Vague and poverty of content Memory and concentration: AOX3, grossly intact for the purposes of this session. Can spell "WORLD" backwards Judgment and insight: [poor] Assessment Schizoaffective disorder, depressed type Plan: -Patient continues to meet criteria for inpatient psychiatric admission for symptom stabilization and safety. -Medications: Wellbutrin 150 mg daily, Haldol 10 mg BID, trazodone 50 mg qHS, melatonin - Start Cogentin 0.5 mg BID for parkinsonism - Agree with considering ECT/Clozapine -When necessary Vistaril and Haldol for agitation/aggression. -SW on board for discharge planning. Encouraged the patient to participate in milieu. Encouraged behavioral activation
[2024-01-13] MEDS: BENZTROPINE MESYLATE 0.5 MG TAB PO SCH (21:45)
--- NOTE | 2024-01-14 13:18 | P.PN ---
Progress Note - Text Progress Note Date: 01/14/24 Interval History: Patient was seen bedside this morning and was directable and agreeable to speak with hand sign writer. He states that he has been feeling "terrible". Endorses command auditory hallucinations telling him to kill himself and to "eat my feces and drink my urine". He also endorses suicidal ideation. He does not currently feel that the medications have improved his hallucinations. Endorses fair sleep and appetite. He has been resting in bed and is disinterested in participating on the milieu. He reports having walked more yesterday and felt that it was helpful. Reports that he has been feeling more slowed down and has not yet noticed any improvement with Cogentin. He reports having tried Invega, Zyprexa, and other antipsychotics in the past and recalls that they were not fully helpful for auditory hallucinations. Patient has been compliant with medications and denies side effects otherwise. Vital Signs Temp 97.8 F 01/13/24 06:00 Pulse 60 01/14/24 07:05 Resp 16 01/13/24 06:00 BP 103/67 01/14/24 07:05 Pulse Ox 95 01/13/24 06:00 FiO2 Mental Status Exam: General Appearance: Patient appears to be constricted in affect, acne, short hair, wearing hospital gown stated age is alert, temps to be cooperative. Patient appears to have [fair] hygiene and grooming wearing hospital gown with poor eye contact. No tremors Behavior: [Patient is calmly lying in bed without any agitated behavior.] Vague. Speech: Patient's speech is fluent and nonpressured. Monotone. [place] Mood/Affect: Patient reports their mood is "depressed", affect is congruent and blunted Suicidality/Homicidality: Patient is that he is having suicidal thoughts with plans to eat his own feces, denies any homicidal ideations. Perceptions: Patient denies any visual hallucinations however he does state that he has auditory hallucinations telling him to kill himself. Though content/process: There is no evidence of any delusional thought content and thought process is linear and goal-directed. [place], no paranoia. Vague and poverty of content Memory and concentration: AOX3, grossly intact for the purposes of this session. Can spell "WORLD" backwards Judgment and insight: [poor] AIMS: 0 Assessment Schizoaffective disorder, depressed type Plan: -Patient continues to meet criteria for inpatient psychiatric admission for symptom stabilization and safety. -Medications: Wellbutrin 150 mg daily, Haldol 10 mg BID, trazodone 50 mg qHS, melatonin -Start Prolixin 2.5 mg daily for augmentation. Patient needing dual antipsychotic regimen due to severity of psychotic symptoms not improving on monotherapy -Increase Cogentin to 1 mg BID for parkinsonism - Agree with considering ECT/changing antipsychotics to Clozapine -When necessary Vistaril and Haldol for agitation/aggression. -SW on board for discharge planning. Encouraged the patient to participate in milieu. Encouraged behavioral activation
[2024-01-14] MEDS: BENZTROPINE MESYLATE 1 MG TAB PO SCH (20:34)
--- NOTE | 2024-01-15 13:14 | P.PN ---
Progress Note - Text Progress Note Date: 01/15/24 Follow-up Mediation Review Chief Complaint: I feel the same Subjective: The patient continues to hear voices telling him to kill himself. He reports severe depression. He states feeling numb, tired, hopeless, and worthless. Discussed with patient about changing his medications. The patient reported no side effects from medications. His LI was increased to 900mg daily over the weekend. His Wellbutrin is being increased to 300mg daily today. The patient was explained. He understood and consented. He reported no side effects. Overall, no change in patients MS He has not been attending groups. His interaction with staff and peers is poor. He spends most of his time in his room. Leading questions: The patient admitted to Depression and Anxiety. Admitted to SI. Denied HI. Admitted to command auditory hallucinations. No other symptoms consistent with psychosis Sleep and Appetite: Sleep impaired. Appetite fine. Change in family/ living/job/financial/daily routine: No change. Change in medical condition: No change. Change in medications: As stated above. Side effects from Medications: None. All Objective- MSE: Alert and attentive. Orientation times three. Dressed and Groomed: Appropriately. Pleasant and cooperative. Psychomotor Activity: Normal. Speech: Low toned, quality, and underproductive. The patient does not initiate conversation. Mood: Depressed and anxious. Affect: Sad and Flat SI or HI: The patient hearing voices to kill himself. He feels suicidal. Denied Homicidal thoughts. Perceptual disturbance: No overt hallucinatory behavior noted. Thought Content: No paranoia or other delusional thinking noted. Thought Process: Normal. Cognition: Intact Judgment and Insight: Poor. AIMS: Normal. Labs: No new labs. Li ordered. Diagnosis: No change. Plan and Recommendations: Continue current Medications. Increase to Wellbutrin 300 mg po daily. MS and side effects of medications and adjust medications accordingly. Provide supportive psychotherapy. Provide psychoeducation. The patient to attend carrington activities. Medication Consent with explanation of risk/benefits and side effects: Explained and obtained
[2024-01-16] MEDS: buPROPion XL 300 MG TAB.ER.24H PO SCH (08:24)
--- NOTE | 2024-01-16 13:23 | P.PN ---
Progress Note - Text Progress Note Date: 01/16/24 Follow-up Mediation Review Chief Complaint: I feel no different Subjective: The patient noted feeling stiff and has noticed that his movement have become slow. He complains of being tired. He continues to hear voices telling him to kill himself. He reports severe depression. He states feeling numb, tired, hopeless, and worthless. Discussed with patient about changing his medications. Haldol to lowered to 10 mg daily and then stopped. Wellbutrin will be tapered off before starting Clozapine. The patient will be initiated on a different antidepressant. The patient was explained. He understood and consented. He reported no side effects. Overall, no change in patients MS He has not been attending groups. His interaction with staff and peers is poor. He spends most of his time in his room. Leading questions: The patient admitted to Depression and Anxiety. Admitted to SI. Denied HI. Admitted to command auditory hallucinations. No other symptoms consistent with psychosis Sleep and Appetite: Sleep impaired. Appetite fine. Change in family/ living/job/financial/daily routine: No change. Change in medical condition: No change. Change in medications: As stated above. Side effects from Medications: None. All Objective- MSE: Alert and attentive. Orientation times three. Dressed and Groomed: Appropriately. Pleasant and cooperative. Psychomotor Activity: Normal. Speech: Low toned, quality, and underproductive. The patient does not initiate conversation. Mood: Depressed and anxious. Affect: Sad and Flat SI or HI: The patient hearing voices to kill himself. He feels suicidal. Denied Homicidal thoughts. Perceptual disturbance: No overt hallucinatory behavior noted. Thought Content: No paranoia or other delusional thinking noted. Thought Process: Normal. Cognition: Intact Judgment and Insight: Poor. AIMS: Normal. Labs: No new labs. Li ordered. Diagnosis: No change. Plan and Recommendations: Continue current Medications. Decrease Wellbutrin 150 po daily. Haldol to 10 mg. Both the medications to be tapered off.MS and side effects of medications and adjust medications accordingly. Provide supportive psychotherapy. Provide psychoeducation. The patient to attend [facility] activities. Medication Consent with explanation of risk/benefits and side effects: Explained and obtained
[2024-01-17] MEDS: buPROPion XL 150 MG TAB.ER.24H PO SCH (08:32)
[2024-01-17] MEDS: haloperidoL 5 MG TAB PO SCH (08:32)
--- NOTE | 2024-01-17 16:48 | P.PN ---
Progress Note - Text Progress Note Date: 01/17/24 I was called by the [facility] nurse as the patient was hypotensive in the 70s. Per nurse they have been trying to push oral fluids. When I went to go see the patient his blood pressure did improve to the 90s Systolically. Patient is denying any fever chills nausea vomiting or diarrhea. He denies any dysuria or cough. Patient is a poor historian due to his psychiatric condition. Per nurses patient did complain of some lightheadedness. I did order blood cultures and a UA. I told the nurse to notify me if blood pressure drops below 90 systolically. Will then transfer the patient to stepdown unit for IV fluids.
[2024-01-17 17:57] LABS: Basophils # (A) 0.1 k/uL (0-0.2); Basophils % (A) 1 %; Eosinophils # (A) 0.4 k/uL (0-0.7); Eosinophils % (A) 4 %; HCT 40.1 % (39.0-53.0); HGB 12.9 gm/dL (13.0-17.5); Lymphocytes # (A) 1.6 k/uL (1.0-4.8); Lymphocytes % (A) 16 %; MCH 28.5 pg (25.0-35.0); MCHC 32.1 g/dL (31.0-37.0); MCV 88.9 fL (80.0-100.0); Mean Platelet Volume 7.6; Monocytes # (A) 0.6 k/uL (0-1.0); Monocytes % (A) 6 %; Neutrophils # (A) 7.1 k/uL (1.3-7.7); Neutrophils % (A) 72 %; Platelet Count 323 k/uL (150-450); RBC 4.52 m/uL (4.30-5.90); RDW 12.6 % (11.5-15.5); WBC 9.9 k/uL (3.8-10.6)
[2024-01-17 18:06] LABS: African American GFR (CKD) >90 (>60 ml/min/1.73 sqM); Anion Gap 8 mmol/L; Blood Urea Nitrogen 21 mg/dL (9-20); Calcium 9.4 mg/dL (8.4-10.2); Carbon Dioxide 24 mmol/L (22-30); Chloride 103 mmol/L (98-107); Glucose 82 mg/dL (74-99); Non-African American GFR(CKD) 83 (>60 ml/min/1.73 sqM); Sodium 135 mmol/L (137-145)
--- NOTE | 2024-01-17 20:41 | P.PN ---
Progress Note - Text Progress Note Date: 01/17/24 Follow-up Mediation Review Chief Complaint: I feel no different Subjective: The patient noted feeling tied and weak. The maintains hearing voice telling him to kill himself. and kill other people. When he was told that is this something new, no I never said anything but I have been hearing voices of killing other people and kill myself. The patient has no specific target in his mind. He said, it is a feeling in general but not anybody specific. The patient he also hears music. He was hearing last night [employer] songs most the night. He said that he could not sleep. He further noted seeing funny emojis laughing at him. The patient conversation was spontoons. He appeared less stiff with improved psychomotor retardation. His acne also looked better. He was asked, if he has noticed the difference, the patient replied they do this all the time. His vital signs have been running low. The patients Haldol was reduced yesterday. His Wellbutrin is also being reduced. He reports severe depression. He states feeling numb, tired, hopeless, and worthless. He reported no side effects. Overall, no change in patients MS He has not been attending groups. His interaction with staff and peers is poor. He spends most of his time in his room. Leading questions: The patient admitted to Depression and Anxiety. Admitted to SI. and HI. Admitted to command auditory hallucinations. He reported hearing music and seeing funny emojis laughing at him. No other symptoms consistent with psychosis reported. Sleep and Appetite: Sleep impaired. Appetite fine. Change in family/ living/job/financial/daily routine: No change. Change in medical condition: No change. Change in medications: As stated above. Side effects from Medications: tiredness and stiffness? Objective- MSE: Alert and attentive. Orientation times three. Dressed and Groomed: Appropriately. Pleasant and cooperative. Psychomotor Activity: Normal. Speech: Low toned, quality, and underproductive. The patient does not initiate conversation. Mood: Depressed and anxious. Affect: Sad and Flat SI or HI: The patient hearing voices to kill himself and others., hearing music He feels suicidal and Homicidal thoughts. Perceptual disturbance: No overt hallucinatory behavior noted. He reports hearing and seeing things as reported above. Thought Content: No paranoia or other delusional thinking noted. Thought Process: Normal. Cognition: Intact Judgment and Insight: Poor. AIMS: Normal. Labs: No new labs. Li ordered. Diagnosis: No change. Plan and Recommendations: Continue current Medications. Decrease Wellbutrin 150 po daily. Haldol to 10 mg. Both the medications to be tapered off. MS and side effects of medications and adjust medications accordingly. Provide supportive psychotherapy. Provide psychoeducation. The patient to attend carrington activities. Medication Consent with explanation of risk/benefits and side effects: Explained and obtained
[2024-01-17 21:19] LABS: Appearance,Urine Clear (Clear); Bilirubin,Urine Negative (Negative); Blood,Urine Negative (Negative); Color,Urine Light Yellow; Glucose,Urine (UA) Negative (Negative); Ketones,Urine Negative (Negative); Leukocyte Esterase,Urine Negative (Negative); Nitrite,Urine Negative (Negative); Protein,Urine Negative (Negative); Specific Gravity,Urine 1.018 (1.001-1.035); Urobilinogen,Urine <2.0 mg/dL (<2.0)
--- NOTE | 2024-01-18 15:19 | P.PN ---
Progress Note - Text Progress Note Date: 01/18/24 Follow-up Mediation Review Chief Complaint: I feel no different Subjective: The patient continues to hear the voices telling him to kill himself and others. He is hearing music and seeing emojis laughing at him. The patient was asked [facility] The patient noted that he was homeless and felt like burning the camper. He was unable to give any reason for his act. After year and a half, he was sent to [facility]. He was determined to be NGRI. He also has history eating his own stools. The patient has no good reasoning for doing this. The patient did say that he walked in the hallway twice and has been drinking water as much as he can to help his blood pressure. Reported feeling tired and weak. He reports severe depression. He states feeling numb, tired, hopeless, and worthless. He reported no side effects. Overall, no change in patients MS He has not been attending groups. His interaction with staff and peers is poor. He spends most of his time in his room. Leading questions: The patient admitted to Depression and Anxiety. Admitted to SI. and HI. Admitted to command auditory hallucinations. He reported hearing music and seeing funny emojis laughing at him. No other symptoms consistent with psychosis reported. Sleep and Appetite: Sleep impaired. Appetite fine. Change in family/ living/job/financial/daily routine: No change. Change in medical condition: No change. Change in medications: As stated above. Side effects from Medications: Tiredness. Objective- MSE: Alert and attentive. Orientation times three. Dressed and Groomed: Appropriately. Pleasant and cooperative. Psychomotor Activity: Normal. Speech: Low toned, quality, and underproductive. The patient does not initiate conversation. Mood: Depressed and anxious. Affect: Sad and Flat SI or HI: The patient hearing voices to kill himself and others., hearing music He feels suicidal and Homicidal thoughts. Perceptual disturbance: No overt hallucinatory behavior noted. He reports hearing and seeing things as reported above. Thought Content: No paranoia or other delusional thinking noted. Thought Process: Normal. Cognition: Intact Judgment and Insight: Poor. AIMS: Normal. Labs: No new labs. Diagnosis: No change. Plan and Recommendations: Continue current Medications. MS and side effects of medications and adjust medications accordingly. Wait for Blood pressure to be stabilized to start Clozapine. Provide supportive psychotherapy. Provide psychoeducation. The patient to attend carrington activities. Medication Consent with explanation of risk/benefits and side effects: Explained and obtained
--- NOTE | 2024-01-19 12:20 | P.PN ---
Progress Note - Text Progress Note Date: 01/19/24 Follow-up Mediation Review Chief Complaint: I feel no different Subjective: The patient continues to hear the voices telling him to kill himself and others. He is hearing music and seeing emojis laughing at him. The patient noted that he gets light headed when he gets up. He also feels slightly dizzy, if walking fast. The patients BP was low today. His medications were helpd. The patients Li is changed to 300mg bid. Haldol is dropped to 5 mg and Zoloft is discontinued. The patient explained that these medications have not been working. His blood level for Haldol and Li were adequate. Overall, no change in patients MS He has not been attending groups. His interaction with staff and peers is poor. He spends most of his time in his room. Leading questions: The patient admitted to Depression and Anxiety. Admitted to SI. and HI. Admitted to command auditory hallucinations. He reported hearing music and seeing funny emojis laughing at him. No other symptoms consistent with psychosis reported. Sleep and Appetite: Sleep impaired. Appetite fine. Change in family/ living/job/financial/daily routine: No change. Change in medical condition: No change. Change in medications: As stated above. Side effects from Medications: Tiredness. Objective- MSE: Alert and attentive. Orientation times three. Dressed and Groomed: Appropriately. Pleasant and cooperative. Psychomotor Activity: Normal. Speech: Low toned, quality, and underproductive. The patient does not initiate conversation. Mood: Depressed and anxious. Affect: Sad and Flat SI or HI: The patient hearing voices to kill himself and others., hearing music He feels suicidal and Homicidal thoughts. Perceptual disturbance: No overt hallucinatory behavior noted. He reports hearing and seeing things as reported above. Thought Content: No paranoia or other delusional thinking noted. Thought Process: Normal. Cognition: Intact Judgment and Insight: Poor. AIMS: Normal. Labs: No new labs. Diagnosis: No change. Plan and Recommendations: Continue current Medications. MS and side effects of medications and adjust medications accordingly. Wait for Blood pressure to be stabilized to start Clozapine. Provide supportive psychotherapy. Provide psychoeducation. The patient to attend carrington activities. Medication Consent with explanation of risk/benefits and side effects: Explained and obtained
[2024-01-19] MEDS: LITHIUM CARBONATE 300 MG CAP PO SCH (20:24)
[2024-01-19] MEDS: haloperidoL 5 MG TAB PO SCH (20:24)
--- NOTE | 2024-01-20 18:36 | P.PN ---
Progress Note - Text Progress Note Date: 01/20/24 Interval History: Patient was seen bedside and was agreeable to speak with this provider this af ternoon in the interview room. Patient continues to report auditory hallucinations that tell him to "kill myself, drink migraine, and eat my feces ". He continues to endorse suicidal ideations resolved. He is agreeable with being started on clozapine. He is agreeable with being ordered an EKG today. Patient reports trouble with sleeping, poor mood, and poor energy. He endorses fair appetite. Patient denies other concerns. At this time patient denies any homicidal ideation, intent or plan. Patient denies any visual hallucinations and denies any paranoia or delusions. Patient denies any side effects from the medications and has been compliant with meds. Mental Status Exam: Alert and attentive. Orientation times three. Dressed and Groomed: Appropriately. Pleasant and cooperative. Psychomotor Activity: Normal. Speech: Low toned, quality, and concrete. Poverty of thought Mood: Depressed and anxious. Affect: Sad and Flat SI or HI: The patient hearing voices to kill himself. Endorses SI Perceptual disturbance: AH reported. Thought Content: No paranoia or other delusional thinking noted. Thought Process: Normal. Cognition: Intact Judgment and Insight: Poor. Assessment schizoaffective disorder depressed type Plan: -Patient continues to meet criteria for inpatient psychiatric admission for symptom stabilization and safety. -Medications: continue up which 150 mg daily, lithium 300 mg twice a day, and melatonin increased to 5 mg at bedtime for sleep -Ordered EKG, troponin, CRP, AST/ALT. Baseline ANC reviewed. Plans to initiate clozapine -When necessary Vistaril and Haldol for agitation/aggression. -SW on board for discharge planning. Encouraged the patient to participate in milieu. Encouraged behavioral activation
[2024-01-20] MEDS: MELATONIN 5 MG TABLET PO SCH (20:40)
[2024-01-20 21:02] LABS: C Reactive Protein 0.7 mg/dL (<1.0)
--- NOTE | 2024-01-21 16:50 | P.PN ---
Progress Note - Text Progress Note Date: 01/21/24 Interval History: Patient was seen bedside and was agreeable to speak with this provider this af ternoon in the interview room. Patient continues to report auditory hallucinations that tell him to "kill myself, drink migraine, and eat my feces ". He continues to endorse suicidal ideations he states that he continues to be depressed and anxious. Patient is isolated to room despite discussion of behavioral activation. He reports having broken sleep at night and was encouraged to practice sleep hygiene including not laying in bed during the daytime as much. Discussed results of blood work and patient is agreeable with being on clozapine. Currently, patient does not feel medications have made an impact on his mental health. He states that he continues to feel severely depressed. Given slightly low blood pressure, will hold off on initiating clozapine today. Patient denies other concerns. He reports fair appetite but poor energy. At this time patient denies any homicidal ideation, intent or plan. Patient denies any visual hallucinations and denies any paranoia or delusions. Patient denies any side effects from the medications and has been compliant with meds. Vital Signs Temp 97.9 F 01/21/24 06:27 Pulse 77 01/21/24 06:27 Resp BP 91/61 01/21/24 09:10 Pulse Ox 97 01/21/24 06:27 FiO2 Intake & Output 01/20/24 01/21/24 01/21/24 18:59 06:59 18:59 Weight 98.3 kg Mental Status Exam: Alert and attentive. Orientation times three. Dressed and Groomed: Appropriately. Pleasant and cooperative. Psychomotor Activity: Normal. Speech: Low toned, quality, and concrete. Poverty of thought Mood: Depressed and anxious. Affect: Sad and Flat SI or HI: The patient hearing voices to kill himself. Endorses SI Perceptual disturbance: AH reported. Thought Content: No paranoia or other delusional thinking noted. Thought Process: Normal. Cognition: Intact Judgment and Insight: Poor. Assessment schizoaffective disorder depressed type Plan: -Patient continues to meet criteria for inpatient psychiatric admission for symptom stabilization and safety. -Medications: continue up which 150 mg daily, lithium 300 mg twice a day, and melatonin 5 mg at bedtime for sleep -EKG NSR, troponin, CRP, AST/ALT all wnl. Baseline ANC reviewed. Plans to initiate clozapine -When necessary Vistaril and Haldol for agitation/aggression. -SW on board for discharge planning. Encouraged the patient to participate in milieu. Encouraged behavioral activation
--- NOTE | 2024-01-22 22:12 | P.PN ---
Progress Note - Text Progress Note Date: 01/22/24 Follow-up Mediation Review Chief Complaint: I am doing the same, I see no difference. Subjective: The patient continues to c/o of hearing voices telling him to kill himself or others. He reports hearing music and seeing laughing emojis on his head. He reports tiredness and weakness. His blood pressure has improved a little bit (108/68) The patient agreed to starting Clozapine. Explained the side effects, risks, and benefits. The patient to be started on Clozapine 25 mg po at bedtime. The patient has not been attending the groups. The participation is limited. The interaction with staff and peers is meager. The patient is compliant with treatment recommendations. Leading questions: The patient admitted to Depression and Anxiety. Admitted SI and HI. He does not have any specific target to hurt or kill. He feels in general to hurt people. Admitted to hearing voices and seeing emojis. Sleep and Appetite: Fair Change in family/ living/job/financial/daily routine: No change. Change in medical condition: No change. Change in medications: Haldol and Worthing to be discontinued. Start Clozapine 25 mg po hs. Side effects from Medications: None. Allergies: No change. Objective- MSE: Alert and attentive. Orientation times three. Dressed and Groomed: Appropriately. Pleasant and cooperative. Psychomotor Activity: Normal. Speech: Normal in tone, quality, and quantity. Mood: Depressed. Affect: Subdued, Flat SI or HI: None. Perceptual disturbance: None. Thought Content: No paranoia or other delusional thinking noted. Thought Process: Normal. Cognition: Intact Judgment and Insight: Good AIMS: Normal. Labs: No new labs. Diagnosis: No change Plan and Recommendations: Continue current Medications. D/C Haldol and Worthing. Initiate Clozapine. Monitor MS and side effects of medications and adjust medications accordingly. Provide supportive psychotherapy. The patient provided psychoeducation and advised The patient provided Substance abuse counseling. The patient to attend carrington activities. Medication Consent with explanation of risk/benefits and side effects: Explained and obtained.
[2024-01-23 12:11] LABS: Basophils # (A) 0.1 k/uL (0-0.2); Basophils % (A) 1 %; Eosinophils # (A) 0.3 k/uL (0-0.7); Eosinophils % (A) 3 %; HCT 42.5 % (39.0-53.0); HGB 13.6 gm/dL (13.0-17.5); Lymphocytes # (A) 1.6 k/uL (1.0-4.8); Lymphocytes % (A) 18 %; MCH 28.3 pg (25.0-35.0); MCHC 31.9 g/dL (31.0-37.0); MCV 88.7 fL (80.0-100.0); Mean Platelet Volume 8.1; Monocytes # (A) 0.6 k/uL (0-1.0); Monocytes % (A) 7 %; Neutrophils # (A) 6.2 k/uL (1.3-7.7); Neutrophils % (A) 70 %; Platelet Count 390 k/uL (150-450); RDW 12.8 % (11.5-15.5); WBC 8.8 k/uL (3.8-10.6)
--- NOTE | 2024-01-23 16:34 | P.PN ---
Progress Note - Text Progress Note Date: 01/23/24 Follow-up Mediation Review Chief Complaint: I am doing the same, I see no difference. Subjective: The patient continues to c/o of hearing voices telling him to kill himself or others. He reports hearing music and seeing laughing emojis on his head. He reports tiredness and weakness. His blood pressure was 102/70 today. The patient agreed to starting Clozapine. His ANC is 6200 microliter. . He is started on Clozaril 25 mg daily. His dose will be titrated up depending on side effects and MS. Explained the side effects, risks, and benefits. The patient has not been attending the groups. The participation is limited. The interaction with staff and peers is meager. The patient is compliant with treatment recommendations. Leading questions: The patient admitted to Depression and Anxiety. Admitted SI and HI. He does not have any specific target to hurt or kill. He feels in general to hurt people. Admitted to hearing voices and seeing emojis. Sleep and Appetite: Fair Change in family/ living/job/financial/daily routine: No change. Change in medical condition: No change. Change in medications: Clozapine 25 mg po hs. Side effects from Medications: None. Allergies: No change. Objective- MSE: Alert and attentive. Orientation times three. Dressed and Groomed: Appropriately. Pleasant and cooperative. Psychomotor Activity: Normal. Speech: Normal in tone, quality, and quantity. Mood: Depressed. Affect: Subdued, Flat SI or HI: None. Perceptual disturbance: None. Thought Content: No paranoia or other delusional thinking noted. Thought Process: Normal. Cognition: Intact Judgment and Insight: Good AIMS: Normal. Labs: No new labs. Diagnosis: No change Plan and Recommendations: Continue current Medications. Clozapine 25 mg po daily. Monitor MS and side effects of medications and adjust medications accordingly. Provide supportive psychotherapy. The patient provided psychoeducation and advised The patient provided Substance abuse counseling. The patient to attend [facility]rington activities. Medication Consent with explanation of risk/benefits and side effects: Explained and obtained.
[2024-01-24] MEDS: cloZAPine 25 MG TAB PO SCH (08:22)
--- NOTE | 2024-01-24 16:44 | P.PN ---
Progress Note - Text Progress Note Date: 01/24/24 Follow-up Mediation Review Chief Complaint: I am doing the same, I see no difference. Subjective: The patient continues to c/o of hearing voices telling him to kill himself or others. He reports hearing music and seeing laughing emojis on his head. He reports tiredness and weakness. His blood pressure was 90/60. His Clozaril was held. The patient encouraged to be mobile and drink lot of fluids. The patient has not been attending the groups. The participation is limited. The interaction with staff and peers is meager. The patient is compliant with medications. Leading questions: The patient admitted to Depression and Anxiety. Admitted SI and HI. He does not have any specific target to hurt or kill. He feels in general to hurt people. Admitted to hearing voices and seeing emojis. Sleep and Appetite: Good. Change in family/ living/job/financial/daily routine: No change. Change in medical condition: Wellbutrin disconyinued. Change in medications: None. Side effects from Medications: None. Allergies: No change. Objective- MSE: Alert and attentive. Orientation times three. Dressed and Groomed: Appropriately. Pleasant and cooperative. Psychomotor Activity: Normal. Speech: Normal in tone, quality, and quantity. Mood: Depressed. Affect: Subdued, Flat SI or HI: None. Perceptual disturbance: None. Thought Content: No paranoia or other delusional thinking noted. Thought Process: Normal. Cognition: Intact Judgment and Insight: Good AIMS: Normal. Labs: No new labs. Diagnosis: No change Plan and Recommendations: Continue current Medications. Clozapine 25 mg po daily. Monitor MS and side effects of medications and adjust medications accordingly. Provide supportive psychotherapy. The patient provided psychoeducation and advised The patient provided Substance abuse counseling. The patient to attend carrington activities. Medication Consent with explanation of risk/benefits and side effects: Explained and obtained.
[2024-01-24 17:13] LABS: Basophils # (A) 0.1 k/uL (0-0.2); Basophils % (A) 1 %; Eosinophils # (A) 0.4 k/uL (0-0.7); Eosinophils % (A) 5 %; HCT 41.9 % (39.0-53.0); HGB 13.5 gm/dL (13.0-17.5); Lymphocytes # (A) 2.2 k/uL (1.0-4.8); Lymphocytes % (A) 26 %; MCH 28.5 pg (25.0-35.0); MCHC 32.2 g/dL (31.0-37.0); MCV 88.4 fL (80.0-100.0); Mean Platelet Volume 7.7; Monocytes # (A) 0.5 k/uL (0-1.0); Monocytes % (A) 6 %; Neutrophils # (A) 5.1 k/uL (1.3-7.7); Neutrophils % (A) 60 %; Platelet Count 382 k/uL (150-450); RBC 4.74 m/uL (4.30-5.90); RDW 12.5 % (11.5-15.5); WBC 8.5 k/uL (3.8-10.6)
--- NOTE | 2024-01-25 13:43 | P.PN ---
Progress Note - Text Progress Note Date: 01/25/24 Interval history: Patient was seen isolating to his room and was directable and agreeable to speak with inspector automatic typewriter. He reports depression, anxiety, and auditory hallucinations. He also reports vague homicidal ideation and suicidal ideation without any reported intent, plan or target. Patient denies any side effects from the medications and has been compliant with meds. Clozapine was held on 01/24/24 due to low blood pressure and was started this morning. He denies constipation or chest pain. EKG was completed last week prior to starting Clozapine. CBC with diff completed on 01/23/24 and 01/24/24 and ANC is normal at 6.2 and 5.1 respectively. Vital signs reviewed and his BP is borderline low and HR>100 for the past two days. Reviewed vitals with nursing staff who report vitals have been abnormal over the past month and they are encouraging fluids with minimal benefit. Mental status exam: General Appearance: Patient appears to be stated age, mildly disheveled, dressed in hospital gown, facial acne Behavior: No agitated behavior. Patient is calm and directable. Speech: Patient's speech is fluent and non-pressured; somewhat abnormal prosody. Mood/Affect: Mood is "depressed and anxiety", affect is congruent and constricted. Suicidality/Homicidality: Patient endorses having suicidal or homicidal ideation; does not report intent, plan or target. Perceptions: Patient endorses auditory hallucinations. Though content/process: There is no evidence of any delusional thought content on my assessment today, and thought process is concrete. Memory and concentration: AOX3, grossly intact for the purposes of this session Judgment and insight: Poor Assessment/Plan: Continue with current diagnosis. Patient continues to meet criteria for inpatient psychiatric admission for symptom stabilization and safety. Patient will be maintained on current psychotropic medication regimen. He is currently on Clozapine 25 mg daily (started this morning). Will hold off on increasing Clozapine until vitals stabilize. Internal medicine consult for unstable vitals (limiting Clozapine titration). Monitor for medication compliance and for any psychotropic medication side effects. Will continue to monitor ongoing response to treatment. Encouraged participation in milieu.
--- NOTE | 2024-01-25 15:14 | P.PN ---
Subjective Progress Note Date: 01/25/24 Feels okay, no chest pain no abdominal pain. Dizziness only upon ambulation. Objective - Vital Signs Vital signs: Vital Signs Temp 97.3 F L 01/25/24 08:16 Pulse 110 H 01/25/24 08:16 Resp 16 01/23/24 06:42 BP 95/62 01/25/24 14:02 Pulse Ox 99 01/24/24 08:24 FiO2 - Exam Constitutional: No acute distress, conversant, pleasant Eyes: Anicteric sclerae, moist conjunctiva, no lid-lag, PERRLA ENMT: NC/AT,Oropharynx clear, no erythema, exudates Neck:Supple, FROM, no masses, or JVD, No carotid bruits; No thyromegaly Lungs: Clear to auscultation, Clear to percussion, Normal respiratory effort, no accessory muscle use Cardiovascular: Heart regular in rate and rhythm, No murmurs, gallops, or rubs no peripheral edema Abdominal: Soft Nontender, nom distended, no guarding, no rebound or rigidity, Normoactive bowel sounds No hepatomegaly, No splenomegaly, No palpable mass No abdominal wall hernia noted Skin: Normal temperature, tone, texture, turgor, No induration No subcutaneous nodules, No rash, lesions, No ulcers Extremities:No digital cyanosis No clubbing, Pedal pulses intact and symmetrical Radial pulses intact and symmetrical Normal gait and station, No calf tenderness Psychiatric: Alert and oriented to person, place and time, Appropriate affect Intact judgement Neuro: Muscles Strength 5/5 in all 4 extremities, Sensation to light touch gr ossly present throughout, Cranial nerves II-XII grossly intact. No focal sensory deficits - Labs CBC & Chem 7: 01/24/24 16:49 01/17/24 17:30 Assessment and Plan Plan: Assessment and plan: 1. Hypotension multifactorial likely associated with decreased oral intake and iatrogenic with medications. Continue IV fluids, avoid Hypotensive medications. Continue supportive care.Avoid Increasing benzos for now 2. Obesity:BMI 32 3.Depression: Psychiatry following
--- NOTE | 2024-01-26 10:25 | P.PN ---
Progress Note - Text Progress Note Date: 01/26/24 Follow-up Mediation Review Chief Complaint: I am doing the same, I see no difference. Subjective: The patient continues to c/o of hearing voices telling him to kill himself or others. He reports hearing music and seeing laughing emojis on his head. He reports being tired and weak. The patient noted that he has been walking in the hallways. He received Clozapine yesterday and today. The dose is increased to 50mg. The patient encouraged to drink fluids. He reports no side effects. The patient has not been attending the groups. The participation is limited. The interaction with staff and peers is meager. The patient is compliant with medications. Leading questions: The patient admitted to Depression and Anxiety. Admitted SI and HI. He does not have any specific target to hurt or kill. He feels in general to hurt people. Admitted to command hallucinations of killing himself and others. He continues to hear music and seeing emojis. Sleep and Appetite: Good. Change in family/ living/job/financial/daily routine: No change. Change in medical condition: Clozapine increased to 50 mg daily. Change in medications: None. Side effects from Medications: None. Allergies: No change. Objective- MSE: Alert and attentive. Orientation times three. Dressed and Groomed: Appropriately. Pleasant and cooperative. Psychomotor Activity: Normal. Speech: Normal in tone, quality, and quantity. Mood: Depressed. Affect: Subdued, Flat SI or HI: None. Perceptual disturbance: None. Thought Content: No paranoia or other delusional thinking noted. Thought Process: Normal. Cognition: Intact Judgment and Insight: Good AIMS: Normal. Labs: No new labs. Diagnosis: No change Plan and Recommendations: Continue current Medications. Clozapine 25 mg po daily. Monitor MS and side effects of medications and adjust medications accordingly. Provide supportive psychotherapy. The patient provided psychoeducation and advised The patient provided Substance abuse counseling. The patient to attend [facility] activities. Medication Consent with explanation of risk/benefits and side effects: Explained and obtained.
[2024-01-27] MEDS: cloZAPine 25 MG TAB PO SCH (08:23)
--- NOTE | 2024-01-27 16:37 | P.PN ---
Progress Note - Text Progress Note Date: 01/27/24 Interval history: Patient was seen isolating to his room again today and was directable and agreeable to speak with card writer hand. He reports depression, anxiety, feeling tired. He reports auditory hallucinations and visual hallucinations of "a laughing emoji". He reports suicidal ideation to "eat my own feces". He reports homicidal ideation but denies intent, plan or target. Patient denies any side effects from the medications and has been compliant with meds. He denies constipation and reports bowel movement every 2 days. He was seen by the medical doctor on 01/25/24 and reported feeling dizzy on ambulation and recommended to continue fluids. Vital signs reviewed and are currently stable today. Mental status exam: General Appearance: Patient appears to be stated age, obese, mildly disheveled, dressed in casual street attire, facial acne Behavior: No agitated behavior. Patient is calm and directable. Speech: Patient's speech is fluent and non-pressured; somewhat abnormal prosody. Mood/Affect: Mood is "depressed and anxiety and tired", affect is congruent and constricted. Suicidality/Homicidality: Patient endorses having suicidal to "eat my own feces". He reports vague homicidal ideation but denies intent, plan or target. Perceptions: Patient endorses auditory hallucinations and visual hallucinations. Though content/process: There is no evidence of any delusional thought content on my assessment today, and thought process is concrete. Memory and concentration: AOX3, grossly intact for the purposes of this session Judgment and insight: Fair/poor Assessment/Plan: Continue with current diagnosis. Patient continues to meet criteria for inpatient psychiatric admission for symptom stabilization and safety. Patient will be maintained on current psychotropic medication regimen. He is currently on Clozapine 50 mg daily. Monitor for medication compliance and for any psychotropic medication side effects. Will continue to monitor ongoing response to treatment. Encouraged participation in milieu.
--- NOTE | 2024-01-28 20:11 | P.PN ---
Progress Note - Text Progress Note Date: 01/28/24 Interval history: Patient was seen isolating to his room again today and was directable and agreeable to speak with typewriter tester. He reports depression and anxiety again today. He reports auditory hallucinations. He reports suicidal ideation to "eat my own feces" and reports homicidal ideation but denies intent, plan or target. Patient denies any side effects from the medications and has been compliant with meds. He denies constipation and reports bowel movement every 2 days. Mental status exam: General Appearance: Patient appears to be stated age, obese, mildly disheveled, dressed in casual street attire, facial acne Behavior: No agitated behavior. Patient is calm and directable. Speech: Patient's speech is fluent and non-pressured; somewhat abnormal prosody. Mood/Affect: Mood is "depressed and anxiety", affect is congruent and constricted. Suicidality/Homicidality: Patient endorses having suicidal to "eat my own feces". He reports vague homicidal ideation but denies intent, plan or target. Perceptions: Patient endorses auditory hallucinations. Though content/process: There is no evidence of any delusional thought content on my assessment today, and thought process is concrete. Memory and concentration: AOX3, grossly intact for the purposes of this session Judgment and insight: Fair/poor Assessment/Plan: Continue with current diagnosis. Patient continues to meet criteria for inpatient psychiatric admission for symptom stabilization and safety. Increase Clozapine to 50 mg daily AND 25 mg QHS for psychosis. Monitor for constipation. Monitor vital signs. Monitor for medication compliance and for any psychotropic medication side effects. Will continue to monitor ongoing response to treatment. Encouraged participation in milieu.
[2024-01-28] MEDS: cloZAPine 25 MG TAB PO SCH (20:19)
--- NOTE | 2024-01-29 15:30 | P.PN ---
Progress Note - Text Progress Note Date: 01/29/24 Follow-up Mediation Review Chief Complaint: I am doing the same. Subjective: The patient continues to c/o of hearing voices telling him to kill himself or others. He reports hearing music and seeing laughing emojis on his head. He reports being tired and weak. The patient noted that he got Clozapine this morning. His BP was low 91/56. He noted feeling dizzy when he gets up from the bed. He counts to 5 before moving. The patient noted that he has been walking in the hallways. He received Clozapine yesterday and today. The dose has been increased to 50mg daily and 25 mg hs over the week end. Informed nursing staff to follow the parameters before giving Clozapine. . The patient encouraged to drink fluids. He reports no side effects. The patient has not been attending the groups. The participation is limited. The interaction with staff and peers is meager. The patient is compliant with medications. Leading questions: The patient admitted to Depression and Anxiety. Admitted SI and HI. He does not have any specific target to hurt or kill. He feels in general to hurt people. Admitted to command hallucinations of killing himself and others. He continues to hear music and seeing emojis. Sleep and Appetite: Good. Change in family/ living/job/financial/daily routine: No change. Change in medical condition: Clozapine increased to 50 mg daily. Change in medications: None. Side effects from Medications: None. Allergies: No change. Objective- MSE: Alert and attentive. Orientation times three. Dressed and Groomed: Appropriately. Pleasant and cooperative. Psychomotor Activity: Normal. Speech: Normal in tone, quality, and quantity. Mood: Depressed. Affect: Subdued, Flat SI or HI: None. Perceptual disturbance: None. Thought Content: No paranoia or other delusional thinking noted. Thought Process: Normal. Cognition: Intact Judgment and Insight: Good AIMS: Normal. Labs: No new labs. Diagnosis: No change Plan and Recommendations: Continue current Medications. Clozapine 25 mg po daily. Monitor MS and side effects of medications and adjust medications accordingly. Provide supportive psychotherapy. The patient provided psychoeducation and advised The patient provided Substance abuse counseling. The patient to attend [facility] activities. Medication Consent with explanation of risk/benefits and side effects: Explained and obtained.
--- NOTE | 2024-01-30 12:25 | P.PN ---
Progress Note - Text Progress Note Date: 01/30/24 Follow-up Mediation Review Chief Complaint: I am doing the same. Subjective: The patient continues to c/o of hearing voices telling him to kill himself or others. He reports hearing music and seeing laughing emojis on his head. He reports being tired and weak. The patient noted that he is not walking because he feels dizzy when walking. The patient noted that last night his BP was low. He did not get his Clozapine. The patient encouraged to drink fluids. He reports no side effects. The patient has not been attending the groups. The participation is limited. The interaction with staff and peers is meager. The patient is compliant with medications. Leading questions: The patient admitted to Depression and Anxiety. Admitted SI and HI. He does not have any specific target to hurt or kill. He feels in general to hurt people. Admitted to command hallucinations of killing himself and others. He continues to hear music and seeing emojis. Sleep and Appetite: Good. Change in family/ living/job/financial/daily routine: No change. Change in medical condition: Clozapine increased to 75 mg daily in divided doses. Change in medications: None. Side effects from Medications: None. Allergies: No change. Objective- MSE: Alert and attentive. Orientation times three. Dressed and Groomed: Appropriately. Pleasant and cooperative. Psychomotor Activity: Normal. Speech: Normal in tone, quality, and quantity. Mood: Depressed. Affect: Subdued, Flat SI or HI: None. Perceptual disturbance: None. Thought Content: No paranoia or other delusional thinking noted. Thought Process: Normal. Cognition: Intact Judgment and Insight: Good AIMS: Normal. Labs: No new labs. Diagnosis: No change Plan and Recommendations: Continue current Medications. Monitor MS and side effects of medications and adjust medications accordingly. Provide supportive psychotherapy. The patient provided psychoeducation and advised The patient provided Substance abuse counseling. The patient to attend [facility] activities. Medication Consent with explanation of risk/benefits and side effects: Explained and obtained.
[2024-01-31 12:02] LABS: Basophils # (A) 0.1 k/uL (0-0.2); Basophils % (A) 1 %; Eosinophils # (A) 0.3 k/uL (0-0.7); Eosinophils % (A) 4 %; HCT 41.6 % (39.0-53.0); HGB 13.5 gm/dL (13.0-17.5); Lymphocytes # (A) 1.3 k/uL (1.0-4.8); Lymphocytes % (A) 18 %; MCH 28.4 pg (25.0-35.0); MCHC 32.4 g/dL (31.0-37.0); MCV 87.8 fL (80.0-100.0); Monocytes # (A) 0.5 k/uL (0-1.0); Monocytes % (A) 7 %; Neutrophils # (A) 5.2 k/uL (1.3-7.7); Neutrophils % (A) 69 %; Platelet Count 395 k/uL (150-450); RBC 4.73 m/uL (4.30-5.90); RDW 12.7 % (11.5-15.5); WBC 7.5 k/uL (3.8-10.6)
--- NOTE | 2024-01-31 13:28 | P.PN ---
Progress Note - Text Progress Note Date: 01/31/24 Follow-up Mediation Review Chief Complaint: I am doing the same. Subjective: The patient continues to c/o of hearing voices telling him to kill himself or others. He reports hearing music and seeing laughing emojis on his head. He reports being tired and weak. The patient noted that he is not walking because he feels dizzy when walking. The patient noted that last night his BP was low. He did not get his Clozapine. The patient noted that he is drinking water and trying to walk as much as he can. The titration of Clozapine is not feasible due to consistent low BP. The patient has been tried on 6-7 different antipsychotic. Looking the non-response and chronic suicidality, in my opinion the ECT treatment is recommended. The patient encouraged to drink fluids. . The patient has not been attending the groups. The participation is limited. The interaction with staff and peers is meager. The patient is compliant with medications. Leading questions: The patient admitted to Depression and Anxiety. Admitted SI and HI. He does not have any specific target to hurt or kill. He feels in general to hurt people. Admitted to command hallucinations of killing himself and others. He continues to hear music and seeing emojis. Sleep and Appetite: Good. Change in family/ living/job/financial/daily routine: No change. Change in medical condition: No change. Change in medications: None. Side effects from Medications: None. Allergies: No change. Objective- MSE: Alert and attentive. Orientation times three. Dressed and Groomed: Appropriately. Pleasant and cooperative. Psychomotor Activity: Normal. Speech: Normal in tone, quality, and quantity. Mood: Depressed. Affect: Subdued, Flat SI or HI: None. Perceptual disturbance: None. Thought Content: No paranoia or other delusional thinking noted. Thought Process: Normal. Cognition: Intact Judgment and Insight: Good AIMS: Normal. Labs: No new labs. Diagnosis: No change Plan and Recommendations: Continue current Medications. Monitor MS and side effects of medications and adjust medications accordingly. Provide supportive psychotherapy. The patient provided psychoeducation and advised The patient provided Substance abuse counseling. The patient to attend [facility] activities. Medication Consent with explanation of risk/benefits and side effects: Explained and obtained.
--- NOTE | 2024-02-01 12:03 | P.PN ---
Progress Note - Text Progress Note Date: 02/01/24 Follow-up Mediation Review Chief Complaint: I am doing the same. Subjective: The patient continues to c/o of hearing voices telling him to kill himself or others. He reports hearing music and seeing laughing emojis on his head. He reports being tired and weak. He remains in his bed all the time. He has no interest or motivation. He lays in the same posture for hours. He makes no effort to communicate to anybody. He did not get Clozapine last night. His BP drops at night. He complains of getting dizzy when gets up from lying position. He counts to 5 and then slowly starts walking. The patient encouraged to drink fluids. . The patient has not been attending the groups. The participation is limited. The interaction with staff and peers is meager. The patient is compliant with medications. Leading questions: The patient admitted to Depression and Anxiety. Admitted SI and HI. He does not have any specific target to hurt or kill. He feels in general to hurt people. Admitted to command hallucinations of killing himself and others. He continues to hear music and seeing emojis. Sleep and Appetite: Appetite is good. He sleeps most of the day. Change in family/ living/job/financial/daily routine: No change. Change in medical condition: No change. Change in medications: None. Side effects from Medications: None. Allergies: No change. Objective- MSE: Alert and attentive. Orientation times three. Dressed and Groomed: Appropriately. Pleasant and cooperative. Psychomotor Activity: Normal. Speech: Normal in tone, quality, and quantity. Mood: Depressed. Affect: Subdued, Flat SI or HI: None. Perceptual disturbance: None. Thought Content: No paranoia or other delusional thinking noted. Thought Process: Normal. Cognition: Intact Judgment and Insight: Good AIMS: Normal. Labs: No new labs. Diagnosis: No change Plan and Recommendations: Continue current Medications. Monitor MS and side effects of medications and adjust medications accordingly. Provide supportive psychotherapy. The patient provided psychoeducation and advised The patient provided Substance abuse counseling. The patient to attend [facility] activities. Medication Consent with explanation of risk/benefits and side effects: Explained and obtained.
--- NOTE | 2024-02-02 11:59 | P.PN ---
Progress Note - Text Progress Note Date: 02/02/24 Follow-up Mediation Review Chief Complaint: I am doing the same. Subjective: The patient continues to c/o of hearing voices telling him to kill himself or others. He reports hearing music and seeing laughing emojis on his head. He reports being tired and weak. He remains in his bed all the time. He has no interest or motivation. He lays in the same posture for hours. He makes no effort to communicate to anybody. He did his both doses of clozapine yesterday. However, his BP hovers around 90 and 60. The patient encouraged to drink fluids. He reported no side effects. He still has dizziness but it is not bothering him. His gate remains steady. The patient has not been attending the groups. The participation is limited. The interaction with staff and peers is meager. The patient is compliant with medications. Leading questions: The patient admitted to Depression and Anxiety. Admitted SI and HI. He does not have any specific target to hurt or kill. He feels in general to hurt people. Admitted to command hallucinations of killing himself and others. He continues to hear music and seeing emojis. Sleep and Appetite: Appetite is good. He sleeps most of the day. Change in family/ living/job/financial/daily routine: No change. Change in medical condition: No change. Change in medications: None. Side effects from Medications: None. Allergies: No change. Objective- MSE: Alert and attentive. Orientation times three. Dressed and Groomed: Appropriately. Pleasant and cooperative. Psychomotor Activity: Normal. Speech: Normal in tone, quality, and quantity. Mood: Depressed. Affect: Subdued, Flat SI or HI: None. Perceptual disturbance: None. Thought Content: No paranoia or other delusional thinking noted. Thought Process: Normal. Cognition: Intact Judgment and Insight: Good AIMS: Normal. Labs: No new labs. Diagnosis: No change Plan and Recommendations: Continue current Medications. Monitor MS and side effects of medications and adjust medications accordingly. Provide supportive psychotherapy. The patient provided psychoeducation and advised The patient provided Substance abuse counseling. The patient to attend [facility] activities. Medication Consent with explanation of risk/benefits and side effects: Explained and obtained.
--- NOTE | 2024-02-03 11:24 | P.PN ---
Subjective Progress Note Date: 02/03/24 Principal diagnosis: Schizoaffective disorder, depressed type. Congenital musculoskeletal disorder Patient Name: Oelg Crowe Date of : 89 Patient Status: Inpatient Attending Provider: Cyril Dumas Date: 02/03/24 Initialization Date: 02/02/24 11:58 Subjective data: The patient continues to c/o of hearing voices telling him to kill himself or others. However he denies any specific plans to hurt himself or others to hurt anyone He reports hearing music and seeing laughing emojis on his head. He reports being tired and weak. And that he will need proper placement where he can get help for his condition he remains in his bed all the time. He has no interest or motivation. He did his both doses of clozapine yesterday. However, his BP hovers around 90 and 60. The patient encouraged to drink fluids. He reported no side effects. He still has dizziness but it is not bothering him. Sleep and Appetite: Appetite is good. He sleeps most of the day. Change in family/ living/job/financial/daily routine: No change. Change in medical condition: No change. Change in medications: None. Side effects from Medications: None. Allergies: No change. Objective- MSE: Alert and attentive. Orientation times three. Dressed and Groomed: Appropriately. Pleasant and cooperative. Psychomotor Activity: Normal. Speech: Normal in tone, quality, and quantity. Mood: Depressed. Affect: Subdued, Flat SI or HI: None. Perceptual disturbance: None. Thought Content: No paranoia or other delusional thinking noted. Thought Process: Normal. Cognition: Intact Judgment and Insight: Good AIMS: Normal. Labs: No new labs. Diagnosis: No change Plan and Recommendations: Continue current Medications. Monitor MS and side effects of medications and adjust medications accordingly. Provide supportive psychotherapy. The patient provided psychoeducation and advised The patient provided Substance abuse counseling. The patient to attend [facility] activities. Medication Consent with explanation of risk/benefits and side effects: Explained and obtained. Diagnosis: Schizoaffective disorder, depressed type. Plan and Recommendations: Continue the current treatment plan Invega 3 mg hs, Zoloft 50 mg po daily, Hydroxyzine 25 mg tid. Monitor MS and side effects of medications and adjust medications accordingly. Provide supportive psychotherapy and psychoeducation. The patient provided psychoeducation. The patient provided with substance abuse counselling and advised to attend CHIQUITA Upton MD Objective - Vital Signs Vital signs: Vital Signs Temp 98.2 F 02/03/24 06:00 Pulse 68 02/03/24 06:00 Resp 16 02/03/24 06:00 BP 106/74 02/03/24 08:19 Pulse Ox 96 02/03/24 06:00 FiO2 - Labs CBC & Chem 7: 01/31/24 11:13 01/17/24 17:30
--- NOTE | 2024-02-04 09:22 | P.PN ---
Subjective Progress Note Date: 02/04/24 Principal diagnosis: Schizoaffective disorder, depressed type. Congenital musculoskeletal disorder Patient Name: Oleg Crowe Date of : 89 Patient Status: Inpatient Attending Provider: Cyril Dumas Date: 02/04/24 Initialization Date: 02/02/24 11:58 Subjective data: Conversation was similar to the previous day The patient was seen chart was reviewed and case discussed with nursing staff The patient continues to c/o of hearing voices However he denies any specific plans to hurt himself or others to hurt anyone He reports hearing music and seeing laughing emojis on his head. He reports being tired and weak. And that he will need proper placement where he can get help for his condition he remains in his bed all the time. He has no interest or motivation. He did his both doses of clozapine yesterday. However, his BP hovers around 90 and 60. The patient encouraged to drink fluids. He reported no side effects. He still has dizziness but it is not bothering him. Sleep and Appetite: Appetite is good. He sleeps most of the day. Change in family/ living/job/financial/daily routine: No change. Change in medical condition: No change. Change in medications: None. Side effects from Medications: None. Allergies: No change. Objective- MSE: Alert and attentive. Orientation times three. Dressed and Groomed: Appropriately. Pleasant and cooperative. Psychomotor Activity: Normal. Speech: Normal in tone, quality, and quantity. Mood: Depressed. Affect: Subdued, Flat SI or HI: None. Perceptual disturbance: None. Thought Content: No paranoia or other delusional thinking noted. Thought Process: Normal. Cognition: Intact Judgment and Insight: Good AIMS: Normal. Labs: No new labs. Diagnosis: No change Plan and Recommendations: Continue current Medications. Monitor MS and side effects of medications and adjust medications accordingly. Provide supportive psychotherapy. The patient provided psychoeducation and advised The patient provided Substance abuse counseling. The patient to attend [place] activities. Medication Consent with explanation of risk/benefits and side effects: Explained and obtained. Diagnosis: Schizoaffective disorder, depressed type. Plan and Recommendations: Continue the current treatment plan Invega 3 mg hs, Zoloft 50 mg po daily, Hydroxyzine 25 mg tid. Monitor MS and side effects of medications and adjust medications accordingly. Provide supportive psychotherapy and psychoeducation. The patient provided psychoeducation. The patient provided with substance abuse counselling and advised to attend CHIQUITA Upton MD Objective - Vital Signs Vital signs: Vital Signs Temp 98.1 F 02/04/24 06:51 Pulse 61 02/04/24 06:51 Resp 14 02/04/24 06:51 BP 96/61 02/04/24 06:51 Pulse Ox 96 02/04/24 06:51 FiO2 - Labs CBC & Chem 7: 01/31/24 11:13 01/17/24 17:30
--- NOTE | 2024-02-05 13:20 | P.PN ---
Progress Note - Text Progress Note Date: 02/05/24 Follow-up Mediation Review Chief Complaint: I am doing the same. Subjective: The patient continues to c/o of hearing voices telling him to kill himself or others. He reports hearing music and seeing laughing emojis on his head. He reports being tired and weak. He remains in his bed all the time. He is walking few times a day and drinking fluid. The patient denied being dizzy. He noted that he counts to 5 before start walking. Discussed with patient increasing the dose as he is tolerating the meds a little better. Risk/benefits and side effects discussed. The patient agreed with plan and consented. Increase Clozapine to 50 mg bid. The patient has not been attending the groups. The participation is limited. The interaction with staff and peers is meager. The patient is compliant with medications. Leading questions: The patient admitted to Depression and Anxiety. Admitted SI and HI. He does not have any specific target to hurt or kill. He feels in general to hurt people. Admitted to command hallucinations of killing himself and others. He continues to hear music and seeing emojis. Sleep and Appetite: Appetite is good. He sleeps most of the day. Change in family/ living/job/financial/daily routine: No change. Change in medical condition: No change. Change in medications: None. Side effects from Medications: None. Allergies: No change. Objective- MSE: Alert and attentive. Orientation times three. Dressed and Groomed: Appropriately. Pleasant and cooperative. Psychomotor Activity: Normal. Speech: Normal in tone, quality, and quantity. Mood: Depressed. Affect: Subdued, Flat SI or HI: None. Perceptual disturbance: None. Thought Content: No paranoia or other delusional thinking noted. Thought Process: Normal. Cognition: Intact Judgment and Insight: Good AIMS: Normal. Labs: No new labs. Diagnosis: No change Plan and Recommendations: Continue current Medications. Increase Clozapine to 50 mg bid. Monitor MS and side effects of medications and adjust medications accordingly. Provide supportive psychotherapy. The patient provided psychoeducation and advised The patient provided Substance abuse counseling. The patient to attend [facility] activities. Medication Consent with explanation of risk/benefits and side effects: Explained and obtained.
--- NOTE | 2024-02-06 12:15 | P.PN ---
Progress Note - Text Progress Note Date: 02/06/24 Follow-up Mediation Review Chief Complaint: I am doing the same. Subjective: The patient continues to c/o of hearing voices telling him to kill himself or others. He reports hearing music and seeing laughing emojis on his head. The patient denied being dizzy. He noted that he counts to 5 before start walking. Discussed with patient increasing the dose as he is tolerating the meds a little better. Risk/benefits and side effects discussed. The patient agreed with plan and consented. Increase Clozapine to 50 mg bid. He reported no side effects. The patient has been able to take Clozapine 75 mg daily for last two days. The patient has not been attending the groups. The participation is limited. The interaction with staff and peers is meager. The patient is compliant with medications. Leading questions: The patient admitted to Depression and Anxiety. Admitted SI and HI. He does not have any specific target to hurt or kill. He feels in general to hurt people. Admitted to command hallucinations of killing himself and others. He continues to hear music and seeing emojis. Sleep and Appetite: Appetite is good. He sleeps most of the day. Change in family/ living/job/financial/daily routine: No change. Change in medical condition: No change. Change in medications: None. Side effects from Medications: None. Allergies: No change. Objective- MSE: Alert and attentive. Orientation times three. Dressed and Groomed: Appropriately. Pleasant and cooperative. Psychomotor Activity: Normal. Speech: Normal in tone, quality, and quantity. Mood: Depressed. Affect: Subdued, Flat SI or HI: None. Perceptual disturbance: None. Thought Content: No paranoia or other delusional thinking noted. Thought Process: Normal. Cognition: Intact Judgment and Insight: Good AIMS: Normal. Labs: No new labs. Diagnosis: No change Plan and Recommendations: Continue current Medications. Increase Clozapine to 50 mg bid. Monitor MS and side effects of medications and adjust medications accordingly. Provide supportive psychotherapy. The patient provided psychoeducation and advised The patient provided Substance abuse counseling. The patient to attend [facility] activities. Medication Consent with explanation of risk/benefits and side effects: Explained and obtained.
[2024-02-06] MEDS: cloZAPine 25 MG TAB PO SCH (20:13)
[2024-02-07 11:39] LABS: Basophils % (A) 1 %; Eosinophils # (A) 0.2 k/uL (0-0.7); Eosinophils % (A) 4 %; HGB 13.5 gm/dL (13.0-17.5); Lymphocytes # (A) 1.3 k/uL (1.0-4.8); Lymphocytes % (A) 21 %; MCH 28.3 pg (25.0-35.0); MCHC 31.5 g/dL (31.0-37.0); Mean Platelet Volume 7.7; Monocytes # (A) 0.4 k/uL (0-1.0); Monocytes % (A) 6 %; Neutrophils # (A) 4.1 k/uL (1.3-7.7); Neutrophils % (A) 67 %; Platelet Count 295 k/uL (150-450); RBC 4.77 m/uL (4.30-5.90); RDW 12.7 % (11.5-15.5); WBC 6.2 k/uL (3.8-10.6)
--- NOTE | 2024-02-07 13:11 | P.PN ---
Progress Note - Text Progress Note Date: 02/07/24 Follow-up Mediation Review Chief Complaint: I am doing the same. Subjective: The patient continues to c/o of hearing voices telling him to kill himself or others. He reports hearing music and seeing laughing emojis on his head. The patient tolerating higher dose of Clozapine without problems. His BP is staying in a normal range. Informed patient the dose is being increased to Clozapine to 50 mg three times a day. Explained the side effects. The patient understood and consented to titrating the dose. He denied any side effects. He is not feeling dizzy tired or weak in the legs. He stated feeling very depressed and has consistently felt depressed. Pristiq is being added to the treatment. Discussed risk/benefit and side effects. Patient consented. The patient has been compliant with treatment. The patient has not been attending the groups. The participation is limited. The interaction with staff and peers is meager. The patient remains in his room and lays in bed in isolation. Leading questions: The patient admitted to Depression and Anxiety. Admitted SI and HI. He does not have any specific target to hurt or kill. He feels in general to hurt people. Admitted to command hallucinations of killing himself and others. He continues to hear music and seeing emojis. Sleep and Appetite: Appetite is good. He sleeps most of the day. Change in family/ living/job/financial/daily routine: No change. Change in medical condition: No change. Change in medications: None. Side effects from Medications: None. Allergies: No change. Objective- MSE: Alert and attentive. Orientation times three. Dressed and Groomed: Appropriately. Pleasant and cooperative. Psychomotor Activity: Normal. Speech: Normal in tone, quality, and quantity. Mood: Depressed. Affect: Subdued, Flat SI or HI: None. Perceptual disturbance: None. Thought Content: No paranoia or other delusional thinking noted. Thought Process: Normal. Cognition: Intact Judgment and Insight: Good AIMS: Normal. Labs: No new labs. Diagnosis: No change Plan and Recommendations: Continue current Medications. Increase Clozapine to 50 mg tid. Add Pristiq 50 mg po daily. Monitor MS and side effects of medications and adjust medications accordingly. Provide supportive psychotherapy. The patient provided psychoeducation and advised The patient provided Substance abuse counseling. The patient to attend [facility] activities. Medication Consent with explanation of risk/benefits and side effects: Explained and obtained.
[2024-02-07] MEDS: cloZAPine 25 MG TAB PO SCH (16:59)
[2024-02-08] MEDS: DESVENLAFAXINE SUCCINATE 50 MG TAB.ER.24H PO SCH (08:15)
--- NOTE | 2024-02-08 22:04 | P.PN ---
Progress Note - Text Progress Note Date: 02/08/24 Follow-up Mediation Review Chief Complaint: I am doing the same. Subjective: The patient continues to c/o of hearing voices telling him to kill himself or others. He reports hearing music and seeing laughing emojis on his head. The patient noted that he could not take medication last night due to low BP. He received medication this morning. He has no clinical symptoms of hypotension. Will continue titrating the dose. The patient explained the plan. The patient understood and agreed. He denied any side effects. He is not feeling dizzy tired or weak in the legs. The patient has been compliant with treatment. The patient has not been attending the groups. The participation is limited. The interaction with staff and peers is meager. The patient remains in his room and lays in bed in isolation. Leading questions: The patient admitted to Depression and Anxiety. Admitted SI and HI. He does not have any specific target to hurt or kill. He feels in general to hurt people. Admitted to command hallucinations of killing himself and others. He continues to hear music and seeing emojis. Sleep and Appetite: Appetite is good. He sleeps most of the day. Change in family/ living/job/financial/daily routine: No change. Change in medical condition: No change. Change in medications: None. Side effects from Medications: None. Allergies: No change. Objective- MSE: Alert and attentive. Orientation times three. Dressed and Groomed: Appropriately. Pleasant and cooperative. Psychomotor Activity: Normal. Speech: Normal in tone, quality, and quantity. Mood: Depressed. Affect: Subdued, Flat SI or HI: None. Perceptual disturbance: None. Thought Content: No paranoia or other delusional thinking noted. Thought Process: Normal. Cognition: Intact Judgment and Insight: Good AIMS: Normal. Labs: No new labs. Diagnosis: No change Plan and Recommendations: Continue current Medications. Increase Clozapine to 50 mg tid. Add Pristiq 50 mg po daily. Monitor MS and side effects of medications and adjust medications accordingly. Provide supportive psychotherapy. The patient provided psychoeducation and advised The patient provided Substance abuse counseling. The patient to attend [place] activities. Medication Consent with explanation of risk/benefits and side effects: Explained and obtained.
--- NOTE | 2024-02-09 13:45 | P.PN ---
Progress Note - Text Progress Note Date: 02/09/24 This is a second opinion on patient's treatment and recommendation for care completed by Dr. Simon IDENTIFYING DATA: This patient is a 28-year-old male single, is homeless, no kids, no income. HISTORY OF PRESENT ILLNESS: Accounts Receivable Representative was requested to evaluate patient for a second time to for an opinion on patient's treatment and recommendations for ECT. as previously stated in the previous note by story writer the "Patient was admitted to the mental health unit as a transfer from [facility] on 12/21, patient apparently was demonstrating auditory hallucinations, attempted suicide by trying to eat his own feces. Patient apparently was recently in nursing home as well, was endorsing depression and suicidal ideations auditory hallucinations. Patient has been on several different medications since being on the unit including Wellbutrin, haloperidol, Vistaril, lithium, Invega this has been d iscontinued, Zoloft, trazodone. Patient apparently has not been responding to his medications mainly isolating in his room not caring for self." patient was attempted to be tried on pristiq and also clozapine since the previous evaluation. Accounts Receivable Representative attempted to see patient at the bedside today after he ate lunch, he was laying in bed and was agreeable to speak to story writer, he appears to have a blunted affect, fairly concrete. He was attempting to cooperate and answered all questions. patient states that he is still feeling depressed, severe anxiety. He states the medications have not been helping him "at all". He claims that he is not experiencing any side effects at this time. He states that he is still hearing voices telling him to kill himself by eating feces. She continues to isolate in his room not going to many groups. Claims that he is seeing "laughing and emojis in my head". Continues to have suicidal ideations, denies any HI. States that he has not had ECT in the past however is open to trying it if needed. Patients admits to using no recreational drugs MENTAL STATUS EXAM: General Appearance: Patient appears to be constricted in affect, acne, short hair, wearing street clothes, stated age is alert, attempts to be cooperative. Patient appears to have [fair] hygiene and grooming wearing hospital gown with poor eye contact. Behavior: [Patient is calmly lying in bed without any agitated behavior. Speech: Patient's speech is fluent and nonpressured. Monotone. [place], soft tone Mood/Affect: Patient reports their mood is "badly depressed and anxious", affect is congruent and blunted Suicidality/Homicidality: Patient is that he is having suicidal thoughts with plans to eat his own feces, denies any homicidal ideations. Perceptions: Patient denies any visual hallucinations however he does state that he has auditory hallucinations telling him to kill himself by eating his own feces. Though content/process: There is no evidence of any delusional thought content and thought process is linear and goal-directed. [place], no paranoia. Vague and poverty of content Memory and concentration: AOX3, grossly intact for the purposes of this session. Can spell "WORLD" backwards Judgment and insight: [poor] IMPRESSIONS: Schizoaffective disorder, depressed type PLAN: -Patient continues to require inpatient psychiatric hospitalization for further treatment of his psychotic symptoms and depression. -continue adjusting patient's medication doses as decided by his attending psychiatrist Dr Dumas for the time being. would be my recommendation that patient should be transferred to a facility that can offer ECT as patient appears to be treatment resistant to medications at this time. Patient is agreeable to ECT and story writer answered any questions he had about the treatment. -will defer further treatment of his case to his attending psychiatrist. Thank you
--- NOTE | 2024-02-09 17:10 | P.PN ---
Progress Note - Text Progress Note Date: 02/09/24 Follow-up Mediation Review Chief Complaint: I am doing the same. Subjective: The patient continues to c/o of hearing voices telling him to kill himself or others. He reports hearing music and seeing laughing emojis on his head. The patient noted that he could not take medication last night due to low BP. He has been missing one dose of Clozapine every day. In my opinion, the patient is unable to tolerate the side effects of Clozapine. An effort will be made to titrate the dose but, in my opinion, he meets the criteria for ECT. The patient explained the plan. The patient understood and agreed. He denied any side effects. He is not feeling dizzy tired or weak in the legs. The patient has been compliant with treatment. The patient has not been attending the groups. The participation is limited. The interaction with staff and peers is meager. The patient remains in his room and lays in bed in isolation. Leading questions: The patient admitted to Depression and Anxiety. Admitted SI and HI. He does not have any specific target to hurt or kill. He feels in general to hurt people. Admitted to command hallucinations of killing himself and others. He continues to hear music and seeing emojis. Sleep and Appetite: Appetite is good. He sleeps most of the day. Change in family/ living/job/financial/daily routine: No change. Change in medical condition: No change. Change in medications: None. Side effects from Medications: None. Allergies: No change. Objective- MSE: Alert and attentive. Orientation times three. Dressed and Groomed: Appropriately. Pleasant and cooperative. Psychomotor Activity: Normal. Speech: Normal in tone, quality, and quantity. Mood: Depressed. Affect: Subdued, Flat SI or HI: None. Perceptual disturbance: None. Thought Content: No paranoia or other delusional thinking noted. Thought Process: Normal. Cognition: Intact Judgment and Insight: Good AIMS: Normal. Labs: No new labs. Diagnosis: No change Plan and Recommendations: Continue current Medications. Increase Clozapine to 50 mg tid. Add Pristiq 50 mg po daily. Monitor MS and side effects of medications and adjust medications accordingly. Provide supportive psychotherapy. The patient provided psychoeducation and advised The patient provided Substance abuse counseling. The patient to attend [place] activities. Medication Consent with explanation of risk/benefits and side effects: Explained and obtained.
--- NOTE | 2024-02-10 16:19 | P.PN ---
Progress Note - Text Subjective: Reports intermittent SI with plan and intermittent HI with no target. States that he has CAH. No VH. Objective- MSE: Alert and attentive. Orientation times three. Dressed and Groomed: Appropriately. Pleasant and cooperative. Psychomotor Activity: Normal. Speech: Normal in tone, quality, and quantity. Mood: Depressed. Affect: Subdued, Flat SI or HI: SI with plan and HI with no target present Perceptual disturbance: Reprots CAH Thought Content: No paranoia or other delusional thinking noted. Thought Process: Normal. Cognition: Intact Judgment and Insight: Impaired Diagnosis: No change Plan and Recommendations: no cahnge
--- NOTE | 2024-02-11 15:15 | P.PN ---
Progress Note - Text Interval history: patient reports intermittent suicidal thoughts with a plan to eat his feces. States that he hears voices telling him to do that. Also reports intermittent homicidal ideations without a target. Denies visual hallucinations. Patient denies any side effects from the medications and has been compliant with meds. Mental status exam: General Appearance: [Patient appears to be older than stated age is alert, directable, and cooperative.] Behavior: [No agitated behavior. Patient is calm and directable] Speech: Patient's speech is fluent and nonpressured. Mood/Affect: Mood is dysthymic, affect is congruent and constricted. Suicidality/Homicidality: reports intermittent suicidal thoughts with plan and intermittent homicidal thoughts Perceptions: reports auditory hallucinations and denies visual hallucinations Though content/process: some bizarre thought content Memory and concentration: AOX3, grossly intact for the purposes of this session Judgment and insight: poor Assessment/Plan: Continue with current diagnosis. Patient continues to meet criteria for inpatient psychiatric admission for symptom stabilization and safety. increase clozapine to 75 mg 3 times a day. Continue other medications. Monitor for medication compliance and for any psychotropic medication side effects. Will continue to monitor ongoing response to treatment. Encouraged participation in milieu.
--- NOTE | 2024-02-13 13:06 | P.PN ---
Progress Note - Text Progress Note Date: 02/12/24 Follow-up Mediation Review Chief Complaint: Ther is no change. Subjective: The patient continues to c/o of hearing voices telling him to kill himself or others. He reports hearing music and seeing laughing emojis on his head. The patient noted that he could not take medication last night due to low BP. He has been missing one dose of Clozapine every day. In my opinion, the patient is unable to tolerate the side effects of Clozapine. An effort will be made to titrate the dose. The patients paper work is in the process to be sent to [facility] for ECT treatments. The patient understood and agreed. He denied any side effects. He is not feeling dizzy tired or weak in the legs. The patient has been compliant with treatment. The patient has not been attending the groups. The participation is limited. The interaction with staff and peers is meager. The patient remains in his room and lays in bed in isolation. Leading questions: The patient admitted to Depression and Anxiety. Admitted SI and HI. He does not have any specific target to hurt or kill. He feels in g eneral to hurt people. Admitted to command hallucinations of killing himself and others. He continues to hear music and seeing emojis. Sleep and Appetite: Appetite is good. He sleeps most of the day. Change in family/ living/job/financial/daily routine: No change. Change in medical condition: No change. Change in medications: None. Side effects from Medications: None. Allergies: No change. Objective- MSE: Alert and attentive. Orientation times three. Dressed and Groomed: Appropriately. Pleasant and cooperative. Psychomotor Activity: Normal. Speech: Normal in tone, quality, and quantity. Mood: Depressed. Affect: Subdued, Flat SI or HI: None. Perceptual disturbance: None. Thought Content: No paranoia or other delusional thinking noted. Thought Process: Normal. Cognition: Intact Judgment and Insight: Good AIMS: Normal. Labs: No new labs. Diagnosis: No change Plan and Recommendations: Continue current Medications. Monitor MS and side effects of medications and adjust medications accordingly. Provide supportive psychotherapy. The patient provided psychoeducation and advised The patient provided Substance abuse counseling. The patient to attend [facility] activities. Medication Consent with explanation of risk/benefits and side effects: Explained and obtained.
--- NOTE | 2024-02-13 16:02 | P.PN ---
Progress Note - Text Progress Note Date: 02/13/24 Follow-up Mediation Review Chief Complaint: I did not get Clozapine last night. Subjective: The patient continues to c/o of hearing voices telling him to kill himself or others. He reports hearing music and seeing laughing emojis on his head. The patient noted that he could not take medication last night due to low BP. He denied any side effects except the low BP, mostly at night.. He is not feeling dizzy tired or weak in the legs. The patient has been compliant with treatment. The patient has not been attending the groups. The participation is limited. The interaction with staff and peers is meager. The patient remains in his room and lays in bed in isolation. Leading questions: The patient admitted to Depression and Anxiety. Admitted SI and HI. He does not have any specific target to hurt or kill. He feels in general to hurt people. Admitted to command hallucinations of killing himself and others. He continues to hear music and seeing emojis. Sleep and Appetite: Appetite is good. He sleeps most of the day. Change in family/ living/job/financial/daily routine: No change. Change in medical condition: No change. Change in medications: None. Side effects from Medications: None. Allergies: No change. Objective- MSE: Alert and attentive. Orientation times three. Dressed and Groomed: Appropriately. Pleasant and cooperative. Psychomotor Activity: Normal. Speech: Normal in tone, quality, and quantity. Mood: Depressed. Affect: Subdued, Flat SI or HI: None. Perceptual disturbance: None. Thought Content: No paranoia or other delusional thinking noted. Thought Process: Normal. Cognition: Intact Judgment and Insight: Good AIMS: Normal. Labs: No new labs. Diagnosis: No change Plan and Recommendations: Continue current Medications. Monitor MS and side effects of medications and adjust medications accordingly. Provide supportive psychotherapy. The patient provided psychoeducation and advised The patient provided Substance abuse counseling. The patient to attend [facility] activities. Medication Consent with explanation of risk/benefits and side effects: Explained and obtained.
[2024-02-14 12:04] LABS: Basophils % (A) 1 %; Eosinophils # (A) 0.2 k/uL (0-0.7); Eosinophils % (A) 4 %; Lymphocytes # (A) 1.2 k/uL (1.0-4.8); Lymphocytes % (A) 21 %; MCHC 32.5 g/dL (31.0-37.0); MCV 86.2 fL (80.0-100.0); Mean Platelet Volume 7.4; Monocytes # (A) 0.3 k/uL (0-1.0); Monocytes % (A) 4 %; Neutrophils # (A) 3.8 k/uL (1.3-7.7); Neutrophils % (A) 68 %; Platelet Count 323 k/uL (150-450); RBC 4.64 m/uL (4.30-5.90); RDW 12.8 % (11.5-15.5); WBC 5.6 k/uL (3.8-10.6)
--- NOTE | 2024-02-14 15:33 | P.PN ---
Progress Note - Text Progress Note Date: 02/14/24 Follow-up Mediation Review Chief Complaint: I did not get Clozapine last night. Subjective: The patient continues to c/o of hearing voices telling him to kill himself or others. He reports hearing music and seeing laughing emojis on his head. The patient noted that he could not take medication last night due to low BP. The patient not had his all three dose for past three days. Will continue monitoring and try to medicate the patient. He denied any side effects except the low BP, mostly at night.. He is not feeling dizzy tired or weak in the legs. The patient has been compliant with treatment. The patient has not been attending the groups. The participation is limited. The interaction with staff and peers is meager. The patient remains in his room and lays in bed in isolation. Leading questions: The patient admitted to Depression and Anxiety. Admitted SI and HI. He does not have any specific target to hurt or kill. He feels in general to hurt people. Admitted to command hallucinations of killing himself and others. He continues to hear music and seeing emojis. Sleep and Appetite: Appetite is good. He sleeps most of the day. Change in family/ living/job/financial/daily routine: No change. Change in medical condition: No change. Change in medications: None. Side effects from Medications: None. Allergies: No change. Objective- MSE: Alert and attentive. Orientation times three. Dressed and Groomed: Appropriately. Pleasant and cooperative. Psychomotor Activity: Normal. Speech: Normal in tone, quality, and quantity. Mood: Depressed. Affect: Subdued, Flat SI or HI: None. Perceptual disturbance: None. Thought Content: No paranoia or other delusional thinking noted. Thought Process: Normal. Cognition: Intact Judgment and Insight: Good AIMS: Normal. Labs: No new labs. Diagnosis: No change Plan and Recommendations: Continue current Medications. Monitor MS and side effects of medications and adjust medications accordingly. Provide supportive psychotherapy. The patient provided psychoeducation and advised The patient provided Substance abuse counseling. The patient to attend [facility] activities. Medication Consent with explanation of risk/benefits and side effects: Explained and obtained.
[2024-02-14] MEDS: IBUPROFEN 600 MG TAB PO PRN (18:35)
--- NOTE | 2024-02-15 10:40 | P.PN ---
Progress Note - Text Progress Note Date: 02/15/24 Progress Note - Text Progress Note Date: 02/14/24 Follow-up Mediation Review Chief Complaint: I did not get Clozapine this morning. Subjective: The patient continues to c/o of hearing voices telling him to kill himself or others. He reports hearing music and seeing laughing emojis on his head. The patient noted that he could not take medication this morning due to low BP. The patient not had his all three dose for past three days. Will continue monitoring and try to medicate the patient. He has been drinking water and walks in the hallway. He denied any side effects except the low BP, mostly at night. He is not feeling dizzy tired or weak in the legs. The patient has be en compliant with treatment. The patient has not been attending the groups. The participation is limited. The interaction with staff and peers is meager. The patient remains in his room and lays in bed in isolation. Leading questions: The patient admitted to Depression and Anxiety. Admitted SI and HI. He does not have any specific target to hurt or kill. He feels in general to hurt people. Admitted to command hallucinations of killing himself and others. He continues to hear music and seeing emojis. Sleep and Appetite: Appetite is good. He sleeps most of the day. Change in family/ living/job/financial/daily routine: No change. Change in medical condition: No change. Change in medications: None. Side effects from Medications: None. Allergies: No change. Objective- MSE: Alert and attentive. Orientation times three. Dressed and Groomed: Appropriately. Pleasant and cooperative. Psychomotor Activity: Normal. Speech: Normal in tone, quality, and quantity. Mood: Depressed. Affect: Subdued, Flat SI or HI: None. Perceptual disturbance: None. Thought Content: No paranoia or other delusional thinking noted. Thought Process: Normal. Cognition: Intact Judgment and Insight: Good AIMS: Normal. Labs: No new labs. Diagnosis: No change Plan and Recommendations: Continue current Medications. Monitor MS and side effects of medications and adjust medications accordingly. Provide supportive psychotherapy. The patient provided psychoeducation and advised The patient provided Substance abuse counseling. The patient to attend [facility] activities. Medication Consent with explanation of risk/benefits and side effects: Explained and obtained.
--- NOTE | 2024-02-16 16:57 | P.PN ---
Progress Note - Text Progress Note Date: 02/16/24 Follow-up Mediation Review Chief Complaint: I feel the same. Subjective: The patient continues to c/o of hearing voices telling him to kill himself or others. He reports hearing music and seeing laughing emojis on his head. He stays in his bedroom. He walks in the hallway as per the instructions to keep mobility. He drinks water to keep his BP up. He follows all the instructions. He does not talk to peers or staff. He continues to be negativistic, pessimistic, helpless and hopeless. He seems to have resigned and lays most of the He denied any side effects except the low BP, mostly at night. He is not feeling dizzy tired or weak in the legs. The patient has been compliant with treatment. The patient has not been attending the groups. The participation is limited with staff. The interaction with staff is meager. The patient remains in his room and lays in bed in isolation. Leading questions: The patient admitted to Depression and Anxiety. Admitted SI and HI. He does not have any specific target to hurt or kill. He feels in general to hurt people. Admitted to command hallucinations of killing himself and others. He continues to hear music and seeing emojis. Sleep and Appetite: Appetite is good. He sleeps most of the day. Change in family/ living/job/financial/daily routine: No change. Change in medical condition: No change. Change in medications: None. Side effects from Medications: None. Allergies: No change. Objective- MSE: Alert and attentive. Orientation times three. Dressed and Groomed: Appropriately. Pleasant and cooperative. Psychomotor Activity: Normal. Speech: Normal in tone, quality, and quantity. Mood: Depressed. Affect: Subdued, Flat SI or HI: None. Perceptual disturbance: None. Thought Content: No paranoia or other delusional thinking noted. Thought Process: Normal. Cognition: Intact Judgment and Insight: Good AIMS: Normal. Labs: No new labs. Diagnosis: No change Plan and Recommendations: Continue current Medications. Monitor MS and side effects of medications and adjust medications accordingly. Provide supportive psychotherapy. The patient provided psychoeducation and advised The patient provided Substance abuse counseling. The patient to attend [facility] activities. Medication Consent with explanation of risk/benefits and side effects: Explained and obtained.
--- NOTE | 2024-02-17 12:49 | P.PN ---
Progress Note - Text Progress Note Date: 02/17/24 Interval history: Patient was seen bedside and was directable and agreeable to speak with narrative writer. Patient states that he continues to feel "the same". He continues to report command auditory hallucinations to hurt himself and others. He states that he continues to have suicidal ideation and homicidal ideation towards "no one specific ". However, patient displays more openness in discussing his symptoms and has improved eye contact. He was agreeable with Clozapine continuing to be titrated. Although clozapine is ordered 3 times a day, he only received it in AM due to having hypotension. He said he had trouble sleeping last night but reports good appetite. He denies any dizziness, constipation or chest pain among other side effects that were discussed. Patient denies any side effects from the medications and has been compliant with meds. Vital Signs Temp 97.7 F 02/17/24 06:00 Pulse 86 02/17/24 06:00 Resp 19 02/17/24 06:00 BP 108/68 02/17/24 06:00 Pulse Ox 98 02/17/24 06:00 FiO2 Mental status exam: General Appearance: Patient appears to be stated age is alert, directable, and cooperative. Behavior: No agitated behavior. Patient is calm and directable Speech: Patient's speech is fluent and nonpressured. Mood/Affect: Mood is depressed, affect is congruent and constricted. Suicidality/Homicidality: Endorses suicidal and homicidal ideation Perceptions: Patient endorses command auditory hallucinations Though content/process: There is no evidence of any delusional thought content and thought process is linear and goal-directed. Memory and concentration: AOX3, grossly intact for the purposes of this session Judgment and insight: improving mildly Assessment/Plan: Continue with current diagnosis. Patient continues to meet criteria for inpatient psychiatric admission for symptom stabilization and safety. Patient will be maintained on current psychotropic medication regimen & no changes to clozapine today- continuing to closely monitor BP. Monitor for medication compliance and for any psychotropic medication side effects. Discussed side effects, risks, and alternatives. Patient agreeable with treatment regimen. Weekly CBC per clozapine REMS reviewed and within normal limits. Will continue to monitor ongoing response to treatment & vital signs. Encouraged participation in milieu.
--- NOTE | 2024-02-18 14:15 | P.PN ---
Progress Note - Text Progress Note Date: 02/18/24 Interval history: Patient was seen bedside and was directable and agreeable to speak with technical publications writer. Patient states that he continues to feel "the same". He continues to report command auditory hallucinations to hurt himself and others. He states that the voices tell him to eat his own feces and drink his urine. He endorses suicidal ideation with plan to eat his own feces. However, patient is able to contract for safety. He denies having homicidal ideation towards anyone and specific but states that he just feels angry due to his mental health issues. Of note, patient is more engaged in conversation and is able to discuss his symptoms than in the past. Patient was able to receive a Clozapine 3 times a day yesterday due to improvement in his blood pressure. He endorses mild dizziness when he stands up fast but states that he has been in standing up slowly to prevent this. He reports he has been consuming enough fluids. Otherwise, patient denies all side effects and symptoms. However, he does not feel that there has been any improvement in his auditory hallucinations with the current medication regimen. Patient reports good appetite and fair energy during the day. Patient denies any other side effects from the medications and has been compliant with meds. Vital Signs Temp 97.7 F 02/17/24 06:00 Pulse 86 02/17/24 06:00 Resp 19 02/17/24 06:00 BP 108/68 02/17/24 06:00 Pulse Ox 98 02/17/24 06:00 FiO2 Mental status exam: General Appearance: Patient appears to be stated age is alert, directable, and cooperative. Behavior: No agitated behavior. Patient is calm and directable Speech: Patient's speech is fluent and nonpressured. Mood/Affect: Mood is depressed, affect is congruent and constricted. Suicidality/Homicidality: Endorses suicidal ideation with a plan and vague ho micidal ideation Perceptions: Patient endorses command auditory hallucinations Though content/process: There is no evidence of any delusional thought content and thought process is linear and goal-directed. Memory and concentration: AOX3, grossly intact for the purposes of this session Judgment and insight: improving mildly Assessment/Plan: Continue with current diagnosis. Patient continues to meet criteria for inpatient psychiatric admission for symptom stabilization and safety. Patient will be maintained on current psychotropic medication regimen. Monitor for medication compliance and for any psychotropic medication side effects. Discussed side effects, risks, and alternatives. Patient agreeable with treatment regimen. Weekly CBC per clozapine REMS reviewed and within normal limits. Will continue to monitor ongoing response to treatment & vital signs. Encouraged participation in milieu.
--- NOTE | 2024-02-19 15:36 | P.PN ---
Progress Note - Text Progress Note Date: 02/19/24 Follow-up Mediation Review Chief Complaint: I feel the same. Subjective: The patient continues to c/o of hearing voices telling him to kill himself or others. He reports hearing music and seeing laughing emojis on his head. He stays in his bedroom. He walks in the hallway as per the instructions to keep mobility. He drinks water to keep his BP up. He follows all the instructions. He does not talk to peers or staff. He continues to be negativistic, pessimistic, helpless, and hopeless. He agreed to go through ECT treatment. He was explained risk/benefits and side effects. The patient understood and consented. A telephone meeting was held with Dr. Mercer. He agreed with ECT treatments. He will forward his recommendations to his therapist at [facility]. He is not feeling dizzy tired or weak in the legs. The patient has been compliant with treatment. The patient has not been attending the groups. The participation is limited with staff. The interaction with staff is meager. The patient remains in his room and lays in bed in isolation. Leading questions: The patient admitted to Depression and Anxiety. Admitted SI and HI. He does not have any specific target to hurt or kill. He feels in general to hurt people. Admitted to command hallucinations of killing himself and others. He continues to hear music and seeing emojis. Sleep and Appetite: Appetite is good. He sleeps most of the day. Change in family/ living/job/financial/daily routine: No change. Change in medical condition: No change. Change in medications: None. Side effects from Medications: None. Allergies: No change. Objective- MSE: Alert and attentive. Orientation times three. Dressed and Groomed: Appropriately. Pleasant and cooperative. Psychomotor Activity: Normal. Speech: Normal in tone, quality, and quantity. Mood: Depressed. Affect: Subdued, Flat SI or HI: None. Perceptual disturbance: None. Thought Content: No paranoia or other delusional thinking noted. Thought Process: Normal. Cognition: Intact Judgment and Insight: Good AIMS: Normal. Labs: No new labs. Diagnosis: No change Plan and Recommendations: Continue current Medications. Monitor MS and side effects of medications and adjust medications accordingly. Provide supportive psychotherapy. The patient provided psychoeducation and advised The patient provided Substance abuse counseling. The patient to attend [facility] activities. Medication Consent with explanation of risk/benefits and side effects: Explained and obtained.
--- NOTE | 2024-02-20 10:01 | P.PN ---
Progress Note - Text Progress Note Date: 02/20/24 Follow-up Mediation Review Chief Complaint: I could not take my medication. Subjective: The patient could not take his morning dose because of low BP. He will get BP recorder again in an hour. The patient continues to c/o of hearing voices telling him to kill himself or others. He reports hearing music and seeing laughing emojis on his head. The patient noted that these voices and music as well as emojis are becoming more intense and frequent. He continues to stay in his bedroom. He walks in the hallway as per the instructions to keep mobility. He drinks water to keep his BP up. He follows all the instructions. He does not talk to peers or staff. He continues to be negativistic, pessimistic, helpless, and hopeless. He is not feeling dizzy tired or weak in the legs. The patient has been compliant with treatment. The patient has not been attending the groups. The participation is limited with staff. The interaction with staff is meager. The patient remains in his room and lays in bed in isolation. Leading questions: The patient admitted to Depression and Anxiety. Admitted SI and HI. He does not have any specific target to hurt or kill. He feels in general to hurt people. Admitted to command hallucinations of killing himself and others. He continues to hear music and seeing emojis. Sleep and Appetite: Appetite is good. He sleeps most of the day. Change in family/ living/job/financial/daily routine: No change. Change in medical condition: No change. Change in medications: None. Side effects from Medications: None. Allergies: No change. Objective- MSE: Alert and attentive. Orientation times three. Dressed and Groomed: Appropriately. Pleasant and cooperative. Psychomotor Activity: Normal. Speech: Normal in tone, quality, and quantity. Mood: Depressed. Affect: Subdued, Flat SI or HI: None. Perceptual disturbance: None. Thought Content: No paranoia or other delusional thinking noted. Thought Process: Normal. Cognition: Intact Judgment and Insight: Good AIMS: Normal. Labs: No new labs. Diagnosis: No change Plan and Recommendations: Continue current Medications. Monitor MS and side effects of medications and adjust medications accordingly. Provide supportive psychotherapy. The patient provided psychoeducation and advised The patient provided Substance abuse counseling. The patient to attend [facility] activities. Medication Consent with explanation of risk/benefits and side effects: Explained and obtained.
[2024-02-20] MEDS: ACETAMINOPHEN TAB 325 MG TAB PO PRN (13:35)
[2024-02-21 09:50] LABS: Basophils % (A) 1 %; Eosinophils # (A) 0.2 k/uL (0-0.7); Eosinophils % (A) 4 %; HCT 40.5 % (39.0-53.0); HGB 13.1 gm/dL (13.0-17.5); Lymphocytes # (A) 1.3 k/uL (1.0-4.8); Lymphocytes % (A) 22 %; MCH 28.1 pg (25.0-35.0); MCHC 32.3 g/dL (31.0-37.0); Mean Platelet Volume 7.2; Monocytes # (A) 0.3 k/uL (0-1.0); Monocytes % (A) 4 %; Neutrophils % (A) 68 %; Platelet Count 367 k/uL (150-450); RBC 4.65 m/uL (4.30-5.90); WBC 5.9 k/uL (3.8-10.6)
--- NOTE | 2024-02-21 11:34 | P.PN ---
Progress Note - Text Progress Note Date: 02/21/24 Follow-up Mediation Review Chief Complaint: I did not get my medication. Subjective: The patient that he could not take his morning dose because of low BP. The patient continues to c/o of hearing voices telling him to kill himself or others. He reports hearing music and seeing laughing emojis on his head. The patient noted that these voices and music as well as emojis are becoming more intense and frequent. He rated his depression at 0 on VAS of 0-10. 10 being best mood, 0 being worst mood. He continues to stay in his bedroom. He walks in the hallway as per the instructions to keep mobility. He drinks water to keep his BP up. He follows all the instructions. He does not talk to peers or staff. He continues to be negativistic, pessimistic, helpless, and hopeless. He is not feeling dizzy tired or weak in the legs. The patient has been compliant with treatment. The patient has not been attending the groups. The participation is limited with staff. The interaction with staff is meager. The patient remains in his room and lays in bed in isolation. Leading questions: The patient admitted to Depression and Anxiety. Admitted SI and HI. He does not have any specific target to hurt or kill. He feels in general to hurt people. Admitted to command hallucinations of killing himself and others. He continues to hear music and seeing emojis. Sleep and Appetite: Appetite is good. He sleeps most of the day. Change in family/ living/job/financial/daily routine: No change. Change in medical condition: No change. Change in medications: None. Side effects from Medications: None. Allergies: No change. Objective- MSE: Alert and attentive. Orientation times three. Dressed and Groomed: Appropriately. Pleasant and cooperative. Psychomotor Activity: Normal. Speech: Normal in tone, quality, and quantity. Mood: Depressed. Affect: Subdued, Flat SI or HI: None. Perceptual disturbance: None. Thought Content: No paranoia or other delusional thinking noted. Thought Process: Normal. Cognition: Intact Judgment and Insight: Good AIMS: Normal. Labs: No new labs. Diagnosis: No change Plan and Recommendations: Continue current Medications. Monitor MS and side effects of medications and adjust medications accordingly. Provide supportive psychotherapy. The patient provided psychoeducation and advised The patient provided Substance abuse counseling. The patient to attend [facility] activities. Medication Consent with explanation of risk/benefits and side effects: Explained and obtained.
--- NOTE | 2024-02-22 13:56 | P.PN ---
Progress Note - Text Progress Note Date: 02/22/24 Follow-up Mediation Review Chief Complaint: I see not change. Subjective: The patient go his morning dose. He reports no changes. He remains withdrawn, aloof, not communicating to anybody, spending time laying in his bed and starring the ceiling. The patient continues to c/o of hearing voices telling him to kill himself or others. He reports hearing music and seeing laughing emojis on his head. The patient noted that these voices and music as well as emojis are becoming more intense and frequent. He continues to be negativistic, pessimistic, helpless, and hopeless. He is not feeling dizzy tired or weak in the legs. The patient has been compliant with treatment. The patient has not been attending the groups.. The interaction with staff is meager. The patient remains in his room and lays in bed in isolation. Leading questions: The patient admitted to Depression and Anxiety. Admitted SI and HI. He does not have any specific target to hurt or kill. He feels in general to hurt people. Admitted to command hallucinations of killing himself and others. He continues to hear music and seeing emojis. Sleep and Appetite: Appetite is good. He sleeps most of the day. Change in family/ living/job/financial/daily routine: No change. Change in medical condition: No change. Change in medications: None. Side effects from Medications: None. Allergies: No change. Objective- MSE: Alert and attentive. Orientation times three. Dressed and Groomed: Appropriately. Pleasant and cooperative. Psychomotor Activity: Normal. Speech: Normal in tone, quality, and quantity. Mood: Depressed. Affect: Subdued, Flat SI or HI: None. Perceptual disturbance: None. Thought Content: No paranoia or other delusional thinking noted. Thought Process: Normal. Cognition: Intact Judgment and Insight: Good AIMS: Normal. Labs: No new labs. Diagnosis: No change Plan and Recommendations: Continue current Medications. Monitor MS and side effects of medications and adjust medications accordingly. Provide supportive psychotherapy. The patient provided psychoeducation and advised The patient provided Substance abuse counseling. The patient to attend [facility] activities. Medication Consent with explanation of risk/benefits and side effects: Explained and obtained.
--- NOTE | 2024-02-23 14:26 | P.PN ---
Progress Note - Text Progress Note Date: 02/23/24 Follow-up Mediation Review Chief Complaint: I am bad mentally and physically. Subjective: The patient noted that he is feeling very depressed and has no desire to get out of bed. He has been lying in bad for past 2 months. He does eat, goes the desk [employer] to get his medication and has been walks once or twice in the hallway because he has been instructed to do so. He remains withdrawn, aloof, not communicating to anybody, spending time laying in his bed and starring the ceiling. The patient continues to c/o of hearing voices telling him to kill himself or others. He reports hearing music and seeing laughing emojis on his head. He continues to be negativistic, pessimistic, helpless, and hopeless. He is not feeling dizzy tired or weak in the legs. The patient has been compliant with treatment. The patient has not been attending any [facility] activities for past 2 months. The interaction with staff is meager. The patient remains in his room and lays in bed in isolation. Leading questions: The patient admitted to Depression and Anxiety. Admitted SI and HI. He does not have any specific target to hurt or kill. He feels in general to hurt people. Admitted to command hallucinations of killing himself and others. He continues to hear music and seeing emojis. Sleep and Appetite: Appetite is good. He sleeps most of the day. Change in family/ living/job/financial/daily routine: No change. Change in medical condition: No change. Change in medications: None. Side effects from Medications: None. Allergies: No change. Objective- MSE: Alert and attentive. Orientation times three. Dressed and Groomed: Appropriately. Pleasant and cooperative. Psychomotor Activity: Normal. Speech: Normal in tone, quality, and quantity. Mood: Depressed. Affect: Subdued, Flat SI or HI: None. Perceptual disturbance: None. Thought Content: No paranoia or other delusional thinking noted. Thought Process: Normal. Cognition: Intact Judgment and Insight: Good AIMS: Normal. Labs: No new labs. Diagnosis: No change Plan and Recommendations: Continue current Medications. Monitor MS and side effects of medications and adjust medications accordingly. Provide supportive psychotherapy. The patient provided psychoeducation and advised The patient provided Substance abuse counseling. The patient to attend [facility] activities. Medication Consent with explanation of risk/benefits and side effects: Explained and obtained.
--- NOTE | 2024-02-24 09:50 | P.PN ---
Subjective Progress Note Date: 02/24/24 Principal diagnosis: major depression with psychotic features subjective the patient continues to hear voices and is not sure whether they have been dampened by the clozapine which is at 50 3 times a day. She has been on Pristiq for a couple of weeks at 50 mg. He continues to have no energy no motivation and no drive.he denies any bad side effects on the medication Objective decreased eye contact flat affect he was cooperative came to talk to me in the office without any trouble minimal self-care Assessment still not doing very well we need to eliminate the psychotic c omponent and hopefully the Pristiq "kick in in the next week or so. Plan increase today clozapine to 50 in the morning 150 at night and if he is not too sleepy tried going to 50 in the morning and 200 night as of tomorrow Objective - Vital Signs Vital signs: Vital Signs Temp 98 F 02/24/24 05:48 Pulse 100 02/24/24 08:26 Resp 20 02/24/24 05:48 BP 101/66 02/24/24 08:26 Pulse Ox 93 L 02/24/24 05:48 FiO2 - Labs CBC & Chem 7: 02/21/24 09:27 01/17/24 17:30
[2024-02-24] MEDS: cloZAPine 25 MG TAB PO SCH (20:16)
--- NOTE | 2024-02-25 08:43 | P.PN ---
Subjective Progress Note Date: 02/25/24 Principal diagnosis: major depression with psychotic features subjective the patient continues to hear voices and is not sure whether they have been dampened by the clozapine . He did get 150 mg last night will have 50 mg this morning and then 200 tonight's are trying to increase to her knocks out the voices. He also has pictures of pop up in his head is smiling and mood she 's which really bother him for some reason. He has been on Pristiq for a couple of weeks at 50 mg. He continues to have no energy no motivation and no drive.he denies any bad side effects on the medication Objective decreased eye contact flat affect he was cooperative came to talk to me in the office without any trouble minimal self-care. He got up 1 to breakfast came readily seems a little stiff. We might need to add some Cogentin he is not drooling Assessment still not doing very well we need to eliminate the psychotic component and hopefully the Pristiq "kick in in the next week or so. Plan increase today clozapine to 50 in the morning 150 at night and if he is not too sleepy tried going to 50 in the morning and 200 night as of tomorrow Objective - Vital Signs Vital signs: Vital Signs Temp 98 F 02/24/24 05:48 Pulse 100 02/25/24 08:30 Resp 20 02/24/24 05:48 BP 122/78 02/25/24 08:30 Pulse Ox 93 L 02/24/24 05:48 FiO2 - Labs CBC & Chem 7: 02/21/24 09:27 01/17/24 17:30
[2024-02-25] MEDS: cloZAPine 25 MG TAB PO SCH (08:49)
[2024-02-25] MEDS ORDERED: cloZAPine 25 MG TAB PO SCH (09:00)
[2024-02-25] MEDS: BENZTROPINE MESYLATE 1 MG TAB PO ONE (09:12)
--- NOTE | 2024-02-25 09:13 | P.PN ---
Subjective Progress Note Date: 02/25/24 Principal diagnosis: major depression with psychotic features this is a patient was walking down the [place] and noticed that he was stiff. He thinks that it has something to do with low blood pressure. However I think it is probably some EPS secondary to clozapine so try small dose of Klonopin of benztropine or try to take that away Objective - Vital Signs Vital signs: Vital Signs Temp 98 F 02/24/24 05:48 Pulse 100 02/25/24 08:30 Resp 20 02/24/24 05:48 BP 122/78 02/25/24 08:30 Pulse Ox 93 L 02/24/24 05:48 FiO2 - Labs CBC & Chem 7: 02/21/24 09:27 01/17/24 17:30
[2024-02-25] MEDS: BENZTROPINE MESYLATE 1 MG TAB PO SCH (20:21)
[2024-02-25] MEDS: cloZAPine 100 MG TAB PO SCH (20:21)
[2024-02-26] MEDS ORDERED: cloZAPine 25 MG TAB ONE (08:00)
[2024-02-26] MEDS ORDERED: cloZAPine 100 MG TAB ONE (19:44)
[2024-02-26] MEDS ORDERED: MELATONIN 5 MG TABLET ONE (19:44)
[2024-02-27] MEDS ORDERED: cloZAPine 25 MG TAB ONE (07:59)
[2024-02-27] MEDS ORDERED: MELATONIN 5 MG TABLET ONE (20:27)
[2024-02-27] MEDS ORDERED: cloZAPine 100 MG TAB ONE (20:27)
[2024-02-28] MEDS ORDERED: cloZAPine 25 MG TAB ONE (07:50)
[2024-02-28] MEDS ORDERED: cloZAPine 100 MG TAB ONE (20:25)
[2024-02-28] MEDS ORDERED: MELATONIN 5 MG TABLET ONE (20:25)
[2024-02-29] MEDS ORDERED: cloZAPine 25 MG TAB ONE (07:52)
[2024-02-29] MEDS ORDERED: MELATONIN 5 MG TABLET ONE (19:59)
[2024-02-29] MEDS ORDERED: cloZAPine 100 MG TAB ONE (20:00)
[2024-03-01] MEDS ORDERED: cloZAPine 25 MG TAB ONE ×2 (07:48→11:47)
[2024-03-01] MEDS ORDERED: MELATONIN 5 MG TABLET ONE (19:45)
[2024-03-01] MEDS ORDERED: cloZAPine 100 MG TAB ONE (19:45)
[2024-03-02] MEDS ORDERED: cloZAPine 25 MG TAB ONE ×2 (07:38→13:14)
[2024-03-02] MEDS ORDERED: MELATONIN 5 MG TABLET ONE (20:11)
[2024-03-02] MEDS ORDERED: cloZAPine 100 MG TAB ONE (20:11)
[2024-03-02] MEDS ORDERED: traZODone HCL 50 MG TAB ONE ×2 (20:11)
[2024-03-03] MEDS ORDERED: cloZAPine 25 MG TAB ONE (07:41)
[2024-03-03] MEDS ORDERED: cloZAPine 100 MG TAB ONE (21:02)
[2024-03-03] MEDS ORDERED: traZODone HCL 50 MG TAB ONE ×2 (21:02)
[2024-03-03] MEDS ORDERED: MELATONIN 5 MG TABLET ONE (21:03)
[2024-03-04] MEDS ORDERED: cloZAPine 25 MG TAB ONE (07:59)
[2024-03-04] MEDS ORDERED: traZODone HCL 50 MG TAB ONE ×2 (20:33)
[2024-03-04] MEDS ORDERED: cloZAPine 100 MG TAB ONE (20:33)
[2024-03-04] MEDS ORDERED: MELATONIN 5 MG TABLET ONE (20:33)
[2024-03-05] MEDS ORDERED: cloZAPine 100 MG TAB ONE ×2 (07:57→20:16)
[2024-03-05] MEDS ORDERED: traZODone HCL 50 MG TAB ONE ×2 (20:16)
[2024-03-05] MEDS ORDERED: MELATONIN 5 MG TABLET ONE (20:16)
[2024-03-06] MEDS ORDERED: cloZAPine 25 MG TAB ONE ×2 (07:58→19:44)
[2024-03-06] MEDS ORDERED: MELATONIN 5 MG TABLET ONE (19:44)
[2024-03-06] MEDS ORDERED: traZODone HCL 50 MG TAB ONE ×2 (19:44)
[2024-03-07] MEDS ORDERED: MELATONIN 5 MG TABLET ONE ×2 (19:47→20:13)
[2024-03-07] MEDS ORDERED: traZODone HCL 50 MG TAB ONE ×2 (19:47)
[2024-03-08] MEDS ORDERED: traZODone HCL 50 MG TAB ONE ×2 (19:42)
[2024-03-08] MEDS ORDERED: MELATONIN 5 MG TABLET ONE (19:43)
[2024-03-09] MEDS ORDERED: traZODone HCL 50 MG TAB ONE ×2 (20:04)
[2024-03-09] MEDS ORDERED: MELATONIN 5 MG TABLET ONE (20:04)
[2024-03-10] MEDS ORDERED: traZODone HCL 50 MG TAB ONE ×2 (19:45)
[2024-03-10] MEDS ORDERED: MELATONIN 5 MG TABLET ONE (19:46)
[2024-03-11] MEDS ORDERED: MELATONIN 5 MG TABLET ONE (19:51)
[2024-03-11] MEDS ORDERED: traZODone HCL 50 MG TAB ONE ×2 (19:51)
[2024-03-12] MEDS ORDERED: traZODone HCL 50 MG TAB ONE ×2 (20:15)
[2024-03-12] MEDS ORDERED: MELATONIN 5 MG TABLET ONE (20:16)
[2024-03-13] MEDS ORDERED: MELATONIN 5 MG TABLET ONE (20:01)
[2024-03-13] MEDS ORDERED: traZODone HCL 50 MG TAB ONE ×2 (20:02)
[2024-03-14] MEDS ORDERED: traZODone HCL 50 MG TAB ONE ×2 (19:50)
[2024-03-14] MEDS ORDERED: MELATONIN 5 MG TABLET ONE (19:50)
[2024-03-15] MEDS ORDERED: traZODone HCL 50 MG TAB ONE (20:24)
[2024-03-16] MEDS ORDERED: MELATONIN 5 MG TABLET ONE (19:59)
[2024-03-16] MEDS ORDERED: traZODone HCL 50 MG TAB ONE (19:59)
[2024-03-16] MEDS: traZODone HCL 50 MG TAB PO SCH (21:00)
--- NOTE | 2024-03-17 09:58 | P.PN ---
Progress Note - Text Progress Note Date: 03/17/24 The patient was seen and chart was reviewed and case discussed with nursing staff Patient continues to be focused on his lack of appetite as well as insomnia He also states that he would like to have an antidepressant added to his regimen We discussed a trial of Remeron which may help both with the insomnia and appetite to which she has agreed We discussed effects and side effects of the medication which she appears to understood well patient currently ambulates with a walker and is cooperative States that his depression is about the same but denies any suicidal or homicidal ideations MSE: Alert and attentive. Orientation times three. Dressed and Groomed: Appropriately. Patient and hospital gown Pleasant and cooperative. Psychomotor Activity: Normal. Ambulates with a walker Speech: Normal in tone, quality, and quantity. Mood: Depressed. Affect: Subdued, Flat SI or HI: None. Perceptual disturbance: None. Thought Content: No paranoia or other delusional thinking noted. Thought Process: Normal. Cognition: Intact Judgment and Insight: Good concrete AIMS: Normal. Labs: No new labs. Plan and Recommendations: Continue current Medications. Monitor MS and side effects of medications and adjust medications accordingly. Provide supportive psychotherapy. The patient provided psychoeducation and advised The patient provided Substance abuse counseling. The patient to attend [place] activities. Medication Consent with explanation of risk/benefits and side effects: Explained and obtained. New medication added Remeron 15 mg at bedtime Active Medications Generic Name Dose Route Start Last Admin Trade Name Freq PRN Reason Stop Dose Admin Acetaminophen 650 mg 12/22/23 04:12 02/21/24 19:09 Acetaminophen Tab 325 Mg Tab PO 650 mg Q4HR PRN Administration Mild Pain (Scale 1 to 3) Al Hydroxide/Mg Hydroxide 30 ml 12/22/23 04:12 Mag Hydrox/Al Hydrox/Simeth 355 Ml Bottle PO Q4HR PRN GI Upset Fluvoxamine Maleate 50 mg 03/15/24 09:00 Fluvoxamine 50 Mg Tab PO DAILY REJI Haloperidol 5 mg 12/22/23 04:12 01/27/24 20:21 Haloperidol 5 Mg Tab PO 5 mg Q6HR PRN Administration Agitation Hydroxyzine HCl 25 mg 12/22/23 14:15 01/25/24 20:09 Hydroxyzine Hcl 25 Mg Tab PO 25 mg TID PRN Administration Agitation or Acute Anxiety Ibuprofen 600 mg 12/22/23 04:12 02/14/24 18:35 Ibuprofen 600 Mg Tab PO 600 mg Q6HR PRN Administration Moderate Pain (Scale 4 to 6) Lorazepam 1 mg 12/22/23 04:12 01/27/24 20:21 Lorazepam 1 Mg Tab PO 1 mg Q6HR PRN Administration Anxiety Magnesium Hydroxide 2,400 mg 12/22/23 04:12 Magnesium Hydroxide 2,400 Mg/30 Ml Cup PO DAILY PRN Constipation Melatonin 5 mg 01/20/24 20:00 03/16/24 21:00 Melatonin 5 Mg Tablet PO 5 mg 2000 REJI Administration Midodrine 10 mg 03/15/24 07:30 Midodrine 5 Mg Tab PO AC-TID REJI Mirtazapine 15 mg 03/17/24 21:00 Mirtazapine 15 Mg Tab PO HS REJI Perphenazine 8 mg 03/15/24 09:00 Perphenazine 4 Mg Tab PO BID REJI Trazodone HCl 50 mg 03/15/24 21:00 03/16/24 21:00 Trazodone Hcl 50 Mg Tab PO 50 mg HS REJI Administration
[2024-03-17] MEDS: PERPHENAZINE 4 MG TAB PO SCH (10:15)
[2024-03-17] MEDS: MIDODRINE 5 MG TAB PO SCH (10:15)
[2024-03-17] MEDS ORDERED: traZODone HCL 100 MG TAB ONE (20:24)
[2024-03-17] MEDS ORDERED: MIRTAZAPINE 15 MG TAB ONE (20:25)
[2024-03-17] MEDS ORDERED: MIRTAZAPINE 15 MG TAB PO SCH (21:00)
--- NOTE | 2024-03-18 16:52 | P.PN ---
Progress Note - Text Progress Note Date: 03/18/24 Follow-up Mediation Review Chief Complaint: I feel the same. Subjective: The patient noted that he does not feel any different. He still hears voices asking to kill himself or others. He feels very depressed and sees no light at the end of the tunnel. He is hoping to get ECT liam. He feels medication is making him tired. His BP remains on the lower side of the normal range. He is currently on Trilafon and Luvox. He reported no side effects. The patient has not been attending the groups. The participation is limited with staff. The interaction with staff is meager. The patient remains in his room and lays in bed in isolation. He is compliant with taking medications. Leading questions: The patient admitted to Depression and Anxiety. Admitted SI and HI. He does not have any specific target to hurt or kill. He feels in general to hurt people. Admitted to command hallucinations of killing himself and others. He continues to hear music and seeing emojis. Sleep and Appetite: Appetite is good. He sleeps most of the day. Change in family/ living/job/financial/daily routine: No change. Change in medical condition: No change. Change in medications: None. Side effects from Medications: None. Allergies: No change. Objective- MSE: Alert and attentive. Orientation times three. Dressed and Groomed: Appropriately. Pleasant and cooperative. Psychomotor Activity: Normal. Speech: Normal in tone, quality, and quantity. Mood: Depressed. Affect: Subdued, Flat SI or HI: None. Perceptual disturbance: Command hallucinations. Thought Content: No paranoia or other delusional thinking noted. Thought Process: Normal. Cognition: Intact Judgment and Insight: Good AIMS: Normal. Labs: No new labs. Diagnosis: No change Plan and Recommendations: Continue current Medications. Monitor MS and side effects of medications and adjust medications accordingly. Provide supportive psychotherapy. The patient provided psychoeducation and advised The patient provided Substance abuse counseling. The patient to attend [place] activities. Medication Consent with explanation of risk/benefits and side effects: Explained and obtained.
--- NOTE | 2024-03-19 15:25 | P.PN ---
Progress Note - Text Progress Note Date: 03/19/24 Follow-up Mediation Review Chief Complaint: I feel tired. Subjective: The patient does not feel that he is making any progress. His symptoms are unchanged. He reports no side effects. He is compliant with medications. Discussed increasing to dose of Trilofon and Luvox. Patient un derstood and agreed The patient has not been attending the groups. The participation is limited with staff. The interaction with staff is meager. The patient remains in his room and lays in bed in isolation. He is compliant with taking medications. Leading questions: The patient admitted to Depression and Anxiety. Admitted SI and HI. He does not have any specific target to hurt or kill. He feels in general to hurt people. Admitted to command hallucinations of killing himself and others. He continues to hear music and seeing emojis. Sleep and Appetite: Appetite is good. He sleeps most of the day. Change in family/ living/job/financial/daily routine: No change. Change in medical condition: No change. Change in medications: None. Side effects from Medications: None. Allergies: No change. Objective- MSE: Alert and attentive. Orientation times three. Dressed and Groomed: Appropriately. Pleasant and cooperative. Psychomotor Activity: Normal. Speech: Normal in tone, quality, and quantity. Mood: Depressed. Affect: Subdued, Flat SI or HI: None. Perceptual disturbance: Command hallucinations. Thought Content: No paranoia or other delusional thinking noted. Thought Process: Normal. Cognition: Intact Judgment and Insight: Good AIMS: Normal. Labs: No new labs. Diagnosis: No change Plan and Recommendations: Continue current Medications. Monitor MS and side effects of medications and adjust medications accordingly. Provide supportive psychotherapy. The patient provided psychoeducation and advised The patient provided Substance abuse counseling. The patient to attend [facility] activities. Medication Consent with explanation of risk/benefits and side effects: Explained and obtained.
--- NOTE | 2024-03-20 14:48 | P.PN ---
Progress Note - Text Progress Note Date: 03/20/24 Follow-up Mediation Review Chief Complaint: I bled a lot more today. Subjective: The patient expressed concern about bleeding per rectum. Nursing staff notified to inform her it solutions sales consultant physician. The patient does not feel that he is making any progress. His symptoms are unchanged. He reports no side effects. He is compliant with medications. The patient has not been attending the groups. The participation is limited with staff. The interaction with staff is meager. The patient remains in his room and lays in bed in isolation. He is compliant with taking medications. Leading questions: The patient admitted to Depression and Anxiety. Admitted SI and HI. He does not have any specific target to hurt or kill. He feels in general to hurt people. Admitted to command hallucinations of killing himself and others. He continues to hear music and seeing emojis. Sleep and Appetite: Appetite is good. He sleeps most of the day. Change in family/ living/job/financial/daily routine: No change. Change in medical condition: No change. Change in medications: None. Side effects from Medications: None. Allergies: No change. Objective- MSE: Alert and attentive. Orientation times three. Dressed and Groomed: Appropriately. Pleasant and cooperative. Psychomotor Activity: Normal. Speech: Normal in tone, quality, and quantity. Mood: Depressed. Affect: Subdued, Flat SI or HI: None. Perceptual disturbance: Command hallucinations. Thought Content: No paranoia or other delusional thinking noted. Thought Process: Normal. Cognition: Intact Judgment and Insight: Good AIMS: Normal. Labs: No new labs. Diagnosis: No change Plan and Recommendations: Continue current Medications. Monitor MS and side effects of medications and adjust medications accordingly. Provide supportive psychotherapy. The patient provided psychoeducation and advised The patient provided Substance abuse counseling. The patient to attend [facility] activities. Medication Consent with explanation of risk/benefits and side effects: Explained and obtained.
[2024-03-20] MEDS: PERPHENAZINE 4 MG TAB PO SCH (15:56)
--- NOTE | 2024-03-21 14:40 | P.PN ---
Progress Note - Text Progress Note Date: 03/21/24 Follow-up Mediation Review Chief Complaint: I bled a lot more today too. Subjective: The patient expressed concern about bleeding per rectum. He continues to be very depressed, withdrawn, confines himself to his bed. He reports command hallucinationsThe patient does not feel that he is making any progress. His symptoms are unchanged. He reports no side effects. He is compliant with medications. The patient has not been attending the groups. The participation is limited with staff. The interaction with staff is meager. The patient remains in his room and lays in bed in isolation. He is compliant with taking medications. Leading questions: The patient admitted to Depression and Anxiety. Admitted SI and HI. He does not have any specific target to hurt or kill. He feels in general to hurt people. Admitted to command hallucinations of killing himself and others. He continues to hear music and seeing emojis. Sleep and Appetite: Appetite is good. He sleeps most of the day. Change in family/ living/job/financial/daily routine: No change. Change in medical condition: No change. Change in medications: None. Side effects from Medications: None. Allergies: No change. Objective- MSE: Alert and attentive. Orientation times three. Dressed and Groomed: Appropriately. Pleasant and cooperative. Psychomotor Activity: Normal. Speech: Normal in tone, quality, and quantity. Mood: Depressed. Affect: Subdued, Flat SI or HI: None. Perceptual disturbance: Command hallucinations. Thought Content: No paranoia or other delusional thinking noted. Thought Process: Normal. Cognition: Intact Judgment and Insight: Good AIMS: Normal. Labs: No new labs. Diagnosis: No change Plan and Recommendations: Continue current Medications. Monitor MS and side effects of medications and adjust medications accordingly. Provide supportive psychotherapy. The patient provided psychoeducation and advised The patient provided Substance abuse counseling. The patient to attend [place] activities. Medication Consent with explanation of risk/benefits and side effects: Explained and obtained.
--- NOTE | 2024-03-22 13:24 | P.PN ---
Progress Note - Text Progress Note Date: 03/22/24 Follow-up Mediation Review Chief Complaint: I cannot keep the stools and pads . Subjective: The patient noted that it takes him a long time to go to bathroom. He does not feel that it possible for him to keep the stools in a hat and swab after wiping himself. The patient was encouraged to do it to look at the quantity of blood he is passing. He continues to be very depressed, withdrawn, confines himself to his bed. He reports command hallucinations. The patient does not feel that he is making any progress. His symptoms are unchanged. He reports no side effects. He is compliant with medications. The patient has not been attending the groups. The participation is limited with staff. The interaction with staff is meager. The patient remains in his room and lays in bed in isolation. He is compliant with taking medications. Leading questions: The patient admitted to Depression and Anxiety. Admitted SI and HI. He does not have any specific target to hurt or kill. He feels in general to hurt people. Admitted to command hallucinations of killing himself and others. He continues to hear music and seeing emojis. Sleep and Appetite: Appetite is good. He sleeps most of the day. Change in family/ living/job/financial/daily routine: No change. Change in medical condition: No change. Change in medications: None. Side effects from Medications: None. Allergies: No change. Objective- MSE: Alert and attentive. Orientation times three. Dressed and Groomed: Appropriately. Pleasant and cooperative. Psychomotor Activity: Normal. Speech: Normal in tone, quality, and quantity. Mood: Depressed. Affect: Subdued, Flat SI or HI: None. Perceptual disturbance: Command hallucinations. Thought Content: No paranoia or other delusional thinking noted. Thought Process: Normal. Cognition: Intact Judgment and Insight: Poor AIMS: Normal. Labs: No new labs. Diagnosis: No change Plan and Recommendations: Continue current Medications. Monitor MS and side effects of medications and adjust medications accordingly. Provide supportive psychotherapy. The patient provided psychoeducation and advised The patient provided Substance abuse counseling. The patient to attend [facility] activities. Medication Consent with explanation of risk/benefits and side effects: Explained and obtained.
--- NOTE | 2024-03-23 17:37 | P.PN ---
Progress Note - Text Progress Note Date: 03/23/24 Interval history: Patient was seen at the bedside and was agreeable to speak with auto service writer. He was napping at the time of the visit but woke easily when his name was called. He reports feeling worried about his health due to the issues with blood on the toilet paper after he has a stool. He shares that he has a history of anal fissures and does remain concerned about seeing blood at times; he does deny experiencing constipation. When asked about his mood he said it is "okay I guess." He does report feeling low and continues to feel depressed regarding his circumstances. He endorses being presently homeless and is unsure what he will do moving forward. He endorses stable appetite though he has been having "broken sleep". He does experience auditory hallucinations that tell him to "kill myself" and sometimes tell him to hurt himself. He does endorse suicidal ideation; no intent or plan at this time. He does have angry thoughts about harming others at times, but these are non-specific and not currently present. Patient denies any side effects from the medications and has been compliant with meds. Mental status exam: General Appearance: Patient appears to be stated age is alert, directable, and cooperative. Behavior: No agitated behavior. Patient is calm and directable, lying in bed. Speech: Patient's speech is fluent and nonpressured. Mood/Affect: Mood is "okay I guess." Affect is congruent and constricted. Suicidality/Homicidality: Patient denies having any suicidal or homicidal ideation intent or plan. Perceptions: Patient endorses auditory hallucinations; he denies visual hallucinations. Though content/process: There is no evidence of any delusional thought content and thought process is linear and goal-directed. Memory and concentration: AOX3, grossly intact for the purposes of this session Judgment and insight: questionable Assessment: Schizoaffective Disorder, depressed type Plan: Continue with current diagnosis: Schizoaffective disorder, depressed type Patient continues to meet criteria for inpatient psychiatric admission for symptom stabilization and safety. Patient will be maintained on current psychotropic medication regimen. Monitor for medication compliance and for any psychotropic medication side effects. Will continue to monitor ongoing response to treatment. Encouraged participation in milieu.
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
[2024-03-24] MEDS: PERPHENAZINE 4 MG TAB PO SCH (21:17)
--- NOTE | 2024-03-25 12:01 | P.PN ---
Progress Note - Text Progress Note Date: 03/25/24 Interval History: Patient was seen at the bedside and was agreeable to speak with journalists and other writers. [When asked about his mood today he describes it again as "kind of down". He did sleep "a little better" last night and we discussed that he did receive his first dose of perphenazine 16 mg last evening. He has not experienced any side effects with the dose increase thus far. He continues to experience auditory hallucinations that tell him to "kill myself" and sometimes tell him to "hurt hurt others". He denies any intent or plan to act on thoughts of self-harm or harm towards others. He does continue to find these voices distressing and at times he hears constant country music in his head. He continues to experience suicidal ideation irrespective of the hallucinations he rates this at 10 out of 10 intensity today. He denies intent or plan to act on these thoughts and when asked more about that he shared that he is hopeful regarding his pending disability case. He filed for disability in July of this year and is supposed to hear back sometime soon. He denies experiencing any visual hallucinations]. Patient denies any side effects from the medications and has been compliant with meds. Mental status exam: General Appearance: Patient appears to be stated age is alert, directable, and cooperative. Behavior: No agitated behavior. Patient is calm and directable. Lying down. Speech: Patient's speech is fluent and nonpressured. Rate is slow. Mood/Affect: Mood is "haile down." Affect is congruent and flat. Suicidality/Homicidality: Patient does endorse suicidal ideation. He denies having any suicidal or homicidal intent or plan. Perceptions: Patient endorses auditory hallucinations; he denies visual hallucinations. Though content/process: There is no evidence of overtly delusional thought content and thought process is goal-directed, though thought blocking was obse rved. Memory and concentration: AOX3, grossly intact for the purposes of this session Judgment and insight: questionable Assessment: - Schizoaffective disorder, depressed type Plan: - Patient continues to meet criteria for inpatient psychiatric admission for symptom stabilization and safety. - Medications: - Continue Perphenazine 16 mg BID (increased 03/24/24) for ongoing and significant psychotic symptoms. - Continue fluvoxamine 100 mg daily; can consider further titration in future if depressive symptoms persist. Recently increased. - Monitor for medication compliance and for any psychotropic medication side effects. - SW engaged with support for discharge planning and care coordination - Will continue to monitor ongoing response to treatment. - Encouraged participation in milieu.
--- NOTE | 2024-03-27 12:22 | P.PN ---
Progress Note - Text Progress Note Date: 03/26/24 Medication Follow-up: Subjective: The patient showing no change is his mood, hallucinations, and suicidal and homicidal thoughts. He was worrying about his medical issues. He stated that he can never feel happy thinking that his life is useless. His rectal bleeding has improved but it has been recurrent. He is very concerned about ECT treatments. He is hoping that it will make some difference but sees no light at the end of the tunnel at this point. He remains confined to his room and lays in bed. Mental status exam: Alert and attentive. Oriented X3 Psychomotor activity: Retarded. Speech: Normal in tone, quality, underproductive. Mood/Affect: Mood is sad and anxious. Affect is congruent and flat. Suicidality/Homicidality: Patient does endorse suicidal ideation. He denies having any suicidal or homicidal intent or plan. Perceptions: Patient endorses auditory hallucinations; he denies visual hallucinations. Though content/process: There is no evidence of overtly delusional thought content and thought process is goal-directed, though thought blocking was observ ed. Memory and concentration: AOX3, grossly intact for the purposes of this session Judgment and insight: Poor. Assessment: - Schizoaffective disorder, depressed type Plan: Continue current medications. Monitor medications and side effects, adjust the dose as needed. Supportive therapy. Encouraged participation in milieu.
--- NOTE | 2024-03-27 12:53 | P.PN ---
Progress Note - Text Progress Note Date: 03/27/24 Medication Follow-up: Subjective: The patient showing no change is his mood, hallucinations, and suicidal and homicidal thoughts. He was worrying about his medical issues. He remains confined to his room and lays in bed. Mental status exam: Alert and attentive. Oriented X3 Psychomotor activity: Retarded. Speech: Normal in tone, quality, underproductive. Mood/Affect: Mood is sad and anxious. Affect is congruent and flat. Suicidality/Homicidality: Patient does endorse suicidal ideation. He denies having any suicidal or homicidal intent or plan. Perceptions: Patient endorses auditory hallucinations; he denies visual hallucinations. Though content/process: There is no evidence of overtly delusional thought content and thought process is goal-directed, though thought blocking was observed. Memory and concentration: AOX3, grossly intact for the purposes of this session Judgment and insight: Poor. Assessment: - Schizoaffective disorder, depressed type Plan: Attempt was made to contact Dr. Yañez. No response. Continue current medications. Monitor medications and side effects, adjust the dose as needed. Supportive therapy. Encouraged participation in milieu.
--- NOTE | 2024-03-28 15:43 | P.PN ---
Progress Note - Text Progress Note Date: 03/28/24 Medication Follow-up: Subjective: The patient showing no change is his mood, hallucinations, suicidal and homicidal thoughts. He was worrying about his medical issues. He remains confined to his room and lays in bed. Discussed the delay in getting him in to a facility for ECT. The patient looked disappointed. His blood pressure was low. The low blood pressure is secondary to increase in dose of Trilafon. Mental status exam: Alert and attentive. Oriented X3 Psychomotor activity: Retarded. Speech: Normal in tone, quality, underproductive. Mood/Affect: Mood is sad and anxious. Affect is congruent and flat. SI and HI: The patient has suicidal and homicidal ideations. Perceptions: Patient has command hallucinations to kill himself or others. Though content/process: There is no evidence of overtly delusional thought content and thought process is goal-directed, though thought blocking was observed. Memory and concentration: AOX3, grossly intact for the purposes of this session Judgment and insight: Poor. Assessment: - Schizoaffective disorder, depressed type Plan: Continue current medications. Decrease Trilafon to 8 mg po bid. Monitor medications and side effects, adjust the dose as needed. Talked to Dr. Yañez. He has accepted the patient but wants to make arrangements with [facility] for post discharge placement. He will have their behavioral health case manager approach [facility]. Provide supportive psychotherapy. The patient provided psychoeducation and advised The patient provided Substance abuse counseling. The patient to attend [facility] activities. Medication Consent with explanation of risk/benefits and side effects: Explained and obtained.
[2024-03-28] MEDS: PERPHENAZINE 4 MG TAB PO STA (20:08)
--- NOTE | 2024-03-29 11:51 | P.PN ---
Progress Note - Text Progress Note Date: 03/29/24 Medication Follow-up: Subjective: The patient reports being very depressed and sad. He is not sure what is happening with his ECT treatments. The patient continues to c/o loss of interest, no motivation, worthlessness hopelessness and suicidal ideations. He hears voices telling him to kill himself and sometimes they tell him to kill other people. His demeanor and activity level is unchanged. He is compliant with medications. he reported no side effects. Mental status exam: Alert and attentive. Oriented X3 Psychomotor activity: Retarded. Speech: Normal in tone, quality, underproductive. Mood/Affect: Mood is sad and anxious. Affect is congruent and flat. SI and HI: The patient has suicidal and homicidal ideations. Perceptions: Patient has command hallucinations to kill himself or others. Though content/process: There is no evidence of overtly delusional thought co ntent and thought process is goal-directed, though thought blocking was observed. Memory and concentration: AOX3, grossly intact for the purposes of this session Judgment and insight: Poor. Assessment: Major depressive disorder with psychosis. Plan: Continue current medications. Decrease Trilafon to 8 mg po daily. Monitor medications and side effects, adjust the dose as needed. Provide supportive psychotherapy. The patient provided psychoeducation and advised The patient provided Substance abuse counseling. The patient to attend [facility] activities. Medication Consent with explanation of risk/benefits and side effects: Explained and obtained.
[2024-03-29] MEDS: PERPHENAZINE 4 MG TAB PO ONE (21:27)
--- NOTE | 2024-03-30 08:50 | P.PN ---
Subjective Progress Note Date: 03/30/24 Principal diagnosis: major depression severe with psychosis subjective: The patient says that he has no energy trouble concentrating feels weak and sad. He is hopeful that the ECT will work. He says he is tried lots of different antidepressants can remember walked or how much or how long.he was able sleep, he haspoor appetite. Objective patient was cooperative and came readily. He moves slowly has poor eye contact minimal self-care sad affect. He is well oriented and intelligent. Assessment: Depression is quite severe and he has very slowed down depression. Plan: We're trying to get him in to ECT program. The medicine is on might be contributing to low blood pressure and is had some trouble with that also that could be fluid and electrolyte intake. No change in medication at this point. I did discuss with him what ECT does and why it helps and other options besides ECT and medications that once he is feeling better he will need to do so he can have a life. Told him I didn't expect him to remember at all but to realize that there is reason for hope Objective - Vital Signs Vital signs: Vital Signs Temp 97.8 F 03/30/24 07:00 Pulse 68 03/30/24 07:00 Resp 16 03/30/24 07:00 BP 110/68 03/30/24 07:00 Pulse Ox 99 03/30/24 07:00 FiO2 - Labs CBC & Chem 7: 02/21/24 09:27 01/17/24 17:30
[2024-03-30] MEDS: PERPHENAZINE 4 MG TAB PO ONE (20:07)
--- NOTE | 2024-03-31 08:07 | P.PN ---
Subjective Progress Note Date: 03/31/24 Principal diagnosis: major depression severe with psychosis subjective: The patient says that he has no energy, trouble concentrating, feels weak and sad. He is hopeful that the ECT will work. He says he is tried lots of different antidepressants can not remember what or how much or how long. He was able to sleep, he has poor appetite. Objective patient was cooperative and came readily. He moves slowly has poor eye contact minimal self-care sad affect, soft-spoken. He is well oriented and intelligent. Assessment: Depression is quite severe and he has very slowed down depression. Plan: We're trying to get him in to ECT program. The medicine that he is on might be contributing to low blood pressure. No change in medication at this point. I did discuss with him what ECT does and why it helps and other options besides ECT and medications that once he is feeling better on the ECT might help him continue to stay out of depression. Objective - Vital Signs Vital signs: Vital Signs Temp 98.1 F 03/31/24 07:08 Pulse 59 L 03/31/24 07:08 Resp 16 03/31/24 07:08 BP 104/72 03/30/24 20:14 Pulse Ox 99 03/30/24 07:00 FiO2 - Labs CBC & Chem 7: 02/21/24 09:27 01/17/24 17:30
--- NOTE | 2024-04-01 14:30 | P.PN ---
Progress Note - Text Progress Note Date: 04/01/24 Medication Follow-up: Subjective: The patient reports being very depressed and sad. He is not sure what is happening with his ECT treatments. The patient continues to c/o loss of interest, no motivation, worthlessness hopelessness and suicidal ideations. He hears voices telling him to kill himself and sometimes they tell him to kill other people. His demeanor and activity level is unchanged. He is compliant with medications. he reported no side effects. Mental status exam: Alert and attentive. Oriented X3 Psychomotor activity: Retarded. Speech: Normal in tone, quality, underproductive. Mood/Affect: Mood is sad and anxious. Affect is congruent and flat. SI and HI: The patient has suicidal and homicidal ideations. Perceptions: Patient has command hallucinations to kill himself or others. Though content/process: There is no evidence of overtly delusional thought c ontent and thought process is goal-directed, though thought blocking was observed. Memory and concentration: AOX3, grossly intact for the purposes of this session Judgment and insight: Poor. Assessment: Major depressive disorder with psychosis. Plan: Continue current medications. Decrease Trilafon to 8 mg po daily. Monitor medications and side effects, adjust the dose as needed. Provide supportive psychotherapy. The patient provided psychoeducation and advised The patient provided Substance abuse counseling. The patient to attend [facility] activities. Medication Consent with explanation of risk/benefits and side effects: Explained and obtained.
--- NOTE | 2024-04-02 14:48 | P.PN ---
Progress Note - Text Progress Note Date: 04/02/24 Medication Follow-up: Subjective: The patient reports no change in symptoms. He feels the same. He looked happy for a brief period for having a private room. . His demeanor and activity level is unchanged. He is compliant with medications. He reported no side effects. Mental status exam: Alert and attentive. Oriented X3 Psychomotor activity: Retarded. Speech: Normal in tone, quality, underproductive. Mood/Affect: Mood is sad and anxious. Affect is congruent and flat. SI and HI: The patient has suicidal and homicidal ideations. Perceptions: Patient has command hallucinations to kill himself or others. Though content/process: There is no evidence of overtly delusional thought content and thought process is goal-directed, though thought blocking was observed. Memory and concentration: AOX3, grossly intact for the purposes of this session Judgment and insight: Poor. Assessment: Major depressive disorder with psychosis. Plan: Continue current medications. Geodon 20 mg po daily, Paxil 20 mg po daily. Monitor medications and side effects, adjust the dose as needed. Provide supportive psychotherapy. The patient provided psychoeducation and advised The patient provided Substance abuse counseling. The patient to attend [facility] activities. Medication Consent with explanation of risk/benefits and side effects: Explained and obtained.
[2024-04-03] MEDS: ZIPRASIDONE 20 MG CAP PO SCH (08:13)
[2024-04-03] MEDS: PARoxetine 20 MG TAB PO SCH (08:13)
--- NOTE | 2024-04-03 14:45 | P.PN ---
Progress Note - Text Progress Note Date: 04/03/24 Medication Follow-up: Subjective: The patient reports no change in symptoms. He feels the same. He looked happy for a brief period for having a private room. . His demeanor and activity level is unchanged. He continues to lay in his bed. He remains isolated, quiet, withdrawn. He reports command hallucinations to kill himself and other. He feels very depressed and pessimistic. He is compliant with medications. He reported no side effects. Mental status exam: Alert and attentive. Oriented X3 Psychomotor activity: Retarded. Speech: Normal in tone, quality, underproductive. Mood/Affect: Mood is sad and anxious. Affect is congruent and flat. SI and HI: The patient has suicidal and homicidal ideations. Perceptions: Patient has command hallucinations to kill himself and others. Though content/process: There is no evidence of overtly delusional thought content and thought process is goal-directed, though thought blocking was observed. Memory and concentration: AOX3, grossly intact for the purposes of this session Judgment and insight: Poor. Assessment: Major depressive disorder with psychosis. Plan: Continue current medications. Geodon 20 mg po daily, Paxil 20 mg po daily. Monitor medications and side effects, adjust the dose as needed. Provide supportive psychotherapy. The patient provided psychoeducation and advised The patient provided Substance abuse counseling. The patient to attend car[facility] activities. Medication Consent with explanation of risk/benefits and side effects: Explained and obtained.
--- NOTE | 2024-04-04 15:07 | P.PN ---
Progress Note - Text Progress Note Date: 04/04/24 Medication Follow-up: Subjective: The patient reports being depressed and pessimistic. He is looking forward to talk to his new sample case porter. The patient is informed that this evaluation is for his disposition after the ECT. Discussed possible outcome of ECT. The patient understands. He continues to have the same symptoms. He is tolerating medications well. Discussed increase in dose of Geodon. The patient understood and agreed. Will increase Geodon to 40 mg daily. The patient is compliant with medications. His demeanor and activity level is unchanged. He continues to lay in his bed. He remains isolated, quiet, withdrawn. He reports command hallucinations to kill himself and other. He feels very depressed and pessimistic. He is compliant with medications. He reported no side effects. Mental status exam: Alert and attentive. Oriented X3 Psychomotor activity: Retarded. Speech: Normal in tone, quality, underproductive. Mood/Affect: Mood is sad and anxious. Affect is congruent and flat. SI and HI: The patient has suicidal and homicidal ideations. Perceptions: Patient has command hallucinations to kill himself and others. Though content/process: There is no evidence of overtly delusional thought content and thought process is goal-directed, though thought blocking was observed. Memory and concentration: AOX3, grossly intact for the purposes of this session Judgment and insight: Poor. Assessment: Major depressive disorder with psychosis. H/O Schizophrenia, Schizoaffective disorder, Major depressive disorder. Plan: Continue current medications. Geodon 20 mg po daily, Paxil 20 mg po daily. Monitor medications and side effects, adjust the dose as needed. Provide supportive psychotherapy. The patient provided psychoeducation and advised The patient provided Substance abuse counseling. The patient to attend [facility] activities. Medication Consent with explanation of risk/benefits and side effects: Explained and obtained.
[2024-04-05] MEDS: ZIPRASIDONE 20 MG CAP PO SCH (08:20)
--- NOTE | 2024-04-05 13:59 | P.PN ---
Progress Note - Text Progress Note Date: 04/05/24 Medication Follow-up: Subjective: The patient remains depressed and hears voices. He received a call from social [employer], His case will be decided in 4-6 weeks. The patient feels good about it. He thinks having money will help him. He was informed that new case consultant will come on Monday. The patient tolerating increased dose with out any side effects. He has been compliant with medications. His demeanor and activity level is unchanged. He continues to lay in his bed. He remains isolated, quiet, withdrawn. He reports command hallucinations to kill himself and other. He feels very depressed and pessimistic. Mental status exam: Alert and attentive. Oriented X3 Psychomotor activity: Retarded. Speech: Normal in tone, quality, underproductive. Mood/Affect: Mood is sad and anxious. Affect is congruent and flat. SI and HI: The patient has suicidal and homicidal ideations. Perceptions: Patient has command hallucinations to kill himself and others. Though content/process: There is no evidence of overtly delusional thought content and thought process is goal-directed, though thought blocking was observed. Memory and concentration: AOX3, grossly intact for the purposes of this session Judgment and insight: Poor. Assessment: Major depressive disorder with psychosis. H/O Schizophrenia, Schizoaffective disorder, Major depressive disorder. Plan: Continue current medications. Monitor medications and side effects, adjust the dose as needed. Provide supportive psychotherapy. The patient provided psychoeducation and advised The patient provided Substance abuse counseling. The patient to attend [place] activities. Medication Consent with explanation of risk/benefits and side effects: Explained and obtained.
--- NOTE | 2024-04-06 11:20 | P.PN ---
Progress Note - Text Progress Note Date: 04/06/24 Interval history: Patient was seen bedside and was directable and agreeable to speak with comic writer. He continues to report feeling "the same" with AH telling him to eat his feces and SI with plan to eat his feces. Patient is not engaging in behavioral activation despite discussion to do so. He is isolating in his room. He endorses trouble sleeping at night as a result. He reports fair appetite and poor energy. He denies concerns with the medications and is agreeable with increasing Geodon. At this time patient denies homicidal ideations intent or plan. Denies any visual hallucinations. Patient denies any side effects from the medications and has been compliant with meds. Denies dizziness. Vital Signs Temp 97.9 F 04/06/24 08:15 Pulse 92 04/06/24 08:15 Resp 16 04/06/24 08:15 BP 106/73 04/06/24 08:15 Pulse Ox 96 04/06/24 08:15 FiO2 Mental status exam: General Appearance: Patient appears to be stated age is alert, directable, and cooperative. Behavior: No agitated behavior. Patient is calm and directable Speech: Patient's speech is fluent and nonpressured. Mood/Affect: Mood is depressed, affect is congruent and constricted. Suicidality/Homicidality: Endorses suicidal ideation with a plan and denies homicidal ideation Perceptions: Patient endorses command auditory hallucinations Though content/process: There is no evidence of any delusional thought content and thought process is linear and goal-directed. Memory and concentration: AOX3, grossly intact for the purposes of this session Judgment and insight: fair insight, poor judgment Assessment/Plan: Continue with current diagnosis. R/o malingering. Patient continues to meet criteria for inpatient psychiatric admission for symptom stabilization and safety. Increase Geodon to 60 mg daily with meal. Monitor for medication compliance and for any psychotropic medication side effects. Will continue to monitor ongoing response to treatment. Discussed side effects, risks, and alternatives. Patient agreeable with treatment regimen. Encouraged participation in milieu. Would benefit from ECT
[2024-04-07] MEDS: ZIPRASIDONE 60 MG CAP PO SCH (08:27)
--- NOTE | 2024-04-07 11:24 | P.PN ---
Progress Note - Text Progress Note Date: 04/07/24 Interval history: Patient was seen bedside and was directable and agreeable to speak with freelance copywriter. He continues to report feeling "the same as yesterday" with AH telling him to eat his feces and drink his urine. He endorses SI with plan to eat his feces. Patient is not engaging in behavioral activation despite discussion to do so. He is isolating in his room because he feels it helps with AH. He reports sleeping better last night. He reports fair appetite and poor energy. He denies concerns with the medications and is agreeable with increasing Paxil. Patient is interested in ECT. At this time patient denies homicidal ideations intent or plan. Denies any visual hallucinations. Patient denies any side effects from the medications and has been compliant with meds. Denies dizziness. Vital Signs Temp 97.9 F 04/06/24 08:15 Pulse 102 H 04/07/24 08:29 Resp 16 04/06/24 08:15 BP 93/64 04/07/24 08:29 Pulse Ox 96 04/06/24 08:15 FiO2 Mental status exam: General Appearance: Patient appears to be stated age is alert, directable, and cooperative. Disheveled Behavior: No agitated behavior. Patient is calm and directable Speech: Patient's speech is fluent and nonpressured. Mood/Affect: Mood is depressed, affect is congruent and constricted. Suicidality/Homicidality: Endorses suicidal ideation with a plan and denies homicidal ideation Perceptions: Patient endorses command auditory hallucinations Though content/process: There is no evidence of any delusional thought content and thought process is linear and goal-directed. Memory and concentration: AOX3, grossly intact for the purposes of this session Judgment and insight: fair insight, poor judgment Assessment/Plan: Continue with current diagnosis. R/o malingering. Patient continues to meet criteria for inpatient psychiatric admission for symptom stabilization and safety. Increase Paxil 30 mg daily for depression. Monitor for medication compliance and for any psychotropic medication side effects. Will continue to monitor ongoing response to treatment. Discussed side effects, risks, and alternatives. Patient agreeable with treatment regimen. Encouraged participation in milieu. Would benefit from ECT
[2024-04-08] MEDS: PARoxetine 10 MG TAB PO SCH (08:31)
--- NOTE | 2024-04-08 15:42 | P.PN ---
Progress Note - Text Progress Note Date: 04/08/24 Medication Follow-up: Subjective: The patient remains depressed and hears voices. The patient talked to the social work and the onsite case manager from [facility]. She will place the patient in a skilled nursing. His symptomatology is unchanged. He has not noticed any change in his symptoms. He did not report any side effects. Discussed with the patient regarding increasing the dose, the patient agreed. He has been compliant with medications. His demeanor and activity level is unchanged. He continues to lay in his bed. He remains isolated, quiet, withdrawn. He reports command hallucinations to kill himself and other. He feels very depressed and pessimistic. Mental status exam: Alert and attentive. Oriented X3 Psychomotor activity: Retarded. Speech: Normal in tone, quality, underproductive. Mood/Affect: Mood is sad and anxious. Affect is congruent and flat. SI and HI: The patient has suicidal and homicidal ideations. Perceptions: Patient has command hallucinations to kill himself and others. Though content/process: There is no evidence of overtly delusional thought content and thought process is goal-directed, though thought blocking was observed. Memory and concentration: AOX3, grossly intact for the purposes of this session Judgment and insight: Poor. Assessment: Major depressive disorder with psychosis. H/O Schizophrenia, Schizoaffective disorder, Major depressive disorder. Plan: Continue current medications. Monitor medications and side effects, adjust the dose as needed. Provide supportive psychotherapy. The patient provided psychoeducation and advised
--- NOTE | 2024-04-09 14:52 | P.PN ---
Progress Note - Text Progress Note Date: 04/09/24 Medication Follow-up: Subjective: The patient reports being depressed and suicidal. Hears voices telling him kill himself. He does not feel that medications are helping him. The patient is seeming apathetic towards his treatment. He sees no interest in fighting with his illness. The patient talked to the social work and the senior case manager from [facility]. He did not report any side effects. His demeanor and activity level is unchanged. He continues to lay in his bed. He remains isolated, quiet, withdrawn. He reports command hallucinations to kill himself and other. He feels very depressed and pessimistic. Mental status exam: Alert and attentive. Oriented X3 Psychomotor activity: Retarded. Speech: Normal in tone, quality, underproductive. Mood/Affect: Mood is sad and anxious. Affect is congruent and flat. SI and HI: The patient has suicidal and homicidal ideations. Perceptions: Patient has command hallucinations to kill himself and others. Though content/process: There is no evidence of overtly delusional thought content and thought process is goal-directed. Memory and concentration: AOX3, grossly intact for the purposes of this session Judgment and insight: Poor. Assessment: Major depressive disorder with psychosis. H/O Schizophrenia, Schizoaffective disorder, Major depressive disorder. Plan: Continue current medications. Monitor medications and side effects, adjust the dose as needed. Provide supportive psychotherapy. The patient provided psychoeducation and advised
--- NOTE | 2024-04-10 11:51 | P.PN ---
Progress Note - Text Progress Note Date: 04/10/24 Medication Follow-up: Chief complaints: dont feel good. Subjective: The patient stated not feeling good. He feels no different. He continues to be depressed and withdrawn. He remains in his room. He remains in his bad sleeping most of the time. He walks few times with encouragement. He is open to increasing the dosages of his medication. He has not experienced any side effects. He is compliant with medications. His demeanor and activity level is unchanged. He continues to lay in his bed. He remains isolated, quiet, withdrawn. He reports command hallucinations to kill himself and other. He feels very depressed and pessimistic. Mental status exam: Alert and attentive. Oriented X3 Psychomotor activity: Retarded. Speech: Normal in tone, quality, underproductive. Mood/Affect: Mood is sad and anxious. Affect is congruent and flat. SI and HI: The patient has suicidal and homicidal ideations. Perceptions: Patient has command hallucinations to kill himself and others. Though content/process: There is no evidence of overtly delusional thought content and thought process is goal-directed. Memory and concentration: AOX3, grossly intact for the purposes of this session Judgment and insight: Poor. Assessment: Major depressive disorder with psychosis. H/O Schizophrenia, Schizoaffective disorder, Major depressive disorder. Plan: Continue current medications. Monitor medications and side effects, adjust the dose as needed. Provide supportive psychotherapy. The patient provided psychoeducation and advised
--- NOTE | 2024-04-11 11:41 | P.PN ---
Progress Note - Text Progress Note Date: 04/11/24 Medication Follow-up: Chief complaints: I feel the same. Subjective: The patient stated feeling no different. He states being very depressed. He has not experienced any side effects. He is compliant with medications. His demeanor and activity level is unchanged. He continues to lay in his bed. He remains isolated, quiet, withdrawn. He reports command hallucinations to kill himself and other. He feels very depressed and pessimistic. Mental status exam: Alert and attentive. Oriented X3 Psychomotor activity: Retarded. Speech: Normal in tone, quality, underproductive. Mood/Affect: Mood is sad and anxious. Affect is congruent and flat. SI and HI: The patient has suicidal and homicidal ideations. Perceptions: Patient has command hallucinations to kill himself and others. Though content/process: There is no evidence of overtly delusional thought content and thought process is goal-directed. Memory and concentration: AOX3, grossly intact for the purposes of this session Judgment and insight: Poor. Assessment: Major depressive disorder with psychosis. H/O Schizophrenia, Schizoaffective disorder, Major depressive disorder. Plan: Continue current medications. Monitor medications and side effects, adjust the dose as needed. Provide supportive psychotherapy. The patient provided psychoeducation and advised
--- NOTE | 2024-04-12 13:35 | P.PN ---
Progress Note - Text Progress Note Date: 04/12/24 Medication Follow-up: Chief complaints: I am the same. Subjective: The patient stated feeling no different. He states being very depressed. He feels the medications are not working. He has not experienced any side effects. He is compliant with medications. His demeanor and activity level is unchanged. He continues to lay in his bed. He remains isolated, quiet, withdrawn. He reports command hallucinations to kill himself and other. He feels very depressed and pessimistic. Mental status exam: Alert and attentive. Oriented X3 Psychomotor activity: Retarded. Speech: Normal in tone, quality, underproductive. Mood/Affect: Mood is sad and anxious. Affect is congruent and flat. SI and HI: The patient has suicidal and homicidal ideations. Perceptions: Patient has command hallucinations to kill himself and others. Though content/process: There is no evidence of overtly delusional thought content and thought process is goal-directed. Memory and concentration: AOX3, grossly intact for the purposes of this session Judgment and insight: Poor. Assessment: Major depressive disorder with psychosis. H/O Schizophrenia, Schizoaffective disorder, Major depressive disorder. Plan: Continue current medications. Monitor medications and side effects, adjust the dose as needed. Provide supportive psychotherapy. The patient provided psychoeducation and advised
[2024-04-13] MEDS ORDERED: BACITRACIN OINT 1 EACH PACKET TOPICAL PRN (10:16)
--- NOTE | 2024-04-13 11:18 | P.PN ---
Progress Note - Text Progress Note Date: 04/13/24 Interval history: Patient was seen laying in his bed this morning and was directable and agreeable to speak with physician underwriter. Patient claims that he is still hearing voices telling him to eat his own feces. He claims that he is still having suicidal thoughts however no specific plan at this time. Claims to be feeling "not good". Admits to depression, denies any anxiety, mainly keeping himself in his room. At this time patient denies any homicidal ideations intent or plan. Denies visual hallu cinations. Patient denies any side effects from the medications and has been compliant with meds. Mental status exam: General Appearance: Patient appears to be mildly overweight, has a clancy, stated age is alert, directable, and cooperative. Behavior: No agitated behavior. Patient is calm and directable Speech: Patient's speech is fluent and nonpressured. [place], soft tone Mood/Affect: Mood is improving mildly, affect is congruent and constricted. Suicidality/Homicidality: Patient denies having any suicidal or homicidal ideation intent or plan. Perceptions: Patient denies any auditory or visual hallucinations. Though content/process: There is no evidence of any delusional thought content and thought process is linear and goal-directed. [place] Memory and concentration: AOX3, grossly intact for the purposes of this session Judgment and insight: Poor Assessment/Plan: Continue with current diagnosis. Patient continues to meet criteria for inpatient psychiatric admission for symptom stabilization and safety. Patient will be maintained on current psychotropic medication regimen. Monitor for medication compliance and for any psychotropic medication side effects. Will continue to monitor ongoing response to treatment. Encouraged participation in milieu.
--- NOTE | 2024-04-14 15:02 | P.PN ---
Progress Note - Text Progress Note Date: 04/14/24 Interval history: Patient was seen laying in his bed and was directable and agreeable to speak with literary writer. Patient claims that he is still hearing voices telling him to eat his own feces and to harm himself. He claims that he is still having suicidal thoughts. Continues to have a depressed affect, poor eye contact. Claims to be feeling "not good". Admits to depression. denies any anxiety, mainly keeping himself in his room. At this time patient denies any homicidal ideations intent or plan. Denies visual hallucinations. Patient denies any side effects from the medications and has been compliant with meds. Mental status exam: General Appearance: Patient appears to be mildly overweight, has a clancy, stated age is alert, directable, and cooperative. Behavior: No agitated behavior. Patient is calm and directable Speech: Patient's speech is fluent and nonpressured. [place], soft tone Mood/Affect: Mood is improving mildly, affect is congruent and constricted. Suicidality/Homicidality: Patient denies having any suicidal or homicidal ideation intent or plan. Perceptions: Patient denies any auditory or visual hallucinations. Though content/process: There is no evidence of any delusional thought content and thought process is linear and goal-directed. [place] Memory and concentration: AOX3, grossly intact for the purposes of this session Judgment and insight: Poor Assessment/Plan: Continue with current diagnosis. Patient continues to meet criteria for inpatient psychiatric admission for symptom stabilization and safety. Patient will be maintained on current psychotropic medication regimen. Monitor for medication compliance and for any psychotropic medication side effects. Will continue to monitor ongoing response to treatment. Encouraged participation in milieu.
--- NOTE | 2024-04-15 10:05 | P.PN ---
Progress Note - Text Progress Note Date: 04/15/24 dChief complaints: I feel bad. Subjective: The patient continues t feel miserable. He confines himself to his bed. He does not interact with anybody. He stays preoccupied with bland affect. He reported no side effects. He is compliant with medications. Waiting for patient to be transferred for ECT. [facility] case investigator is coordinating with staff at [facility] to facilitate the process. He states being very depressed. He feels the medications are not working. His demeanor and activity level is unchanged. He continues to lay in his bed. He remains isolated, quiet, withdrawn. He reports command hallucinations to kill himself and other. He feels very depressed and pessimistic. Mental status exam: Alert and attentive. Oriented X3 Psychomotor activity: Retarded. Speech: Normal in tone, quality, underproductive. Mood/Affect: Mood is sad and anxious. Affect is congruent and flat. SI and HI: The patient has suicidal and homicidal ideations. Perceptions: Patient has command hallucinations to kill himself and others. Though content/process: There is no evidence of overtly delusional thought content and thought process is goal-directed. Memory and concentration: AOX3, grossly intact for the purposes of this session Judgment and insight: Poor. Assessment: Major depressive disorder with psychosis. H/O Schizophrenia, Schizoaffective disorder, Major depressive disorder. Plan: Continue current medications. Monitor medications and side effects, adjust the dose as needed. Provide supportive psychotherapy. The patient provided psychoeducation and advised
[2024-04-15 13:05] VITALS: BMI 35.6
--- NOTE | 2024-04-16 12:12 | P.PN ---
Progress Note - Text Progress Note Date: 04/16/24 Chief complaints: I am same. Subjective: The patient continues to feel very depressed. He has not responded to any medications. He is still waiting for ECT treatments. His demeanor and activity level is unchanged. He continues to lay in his bed. He remains isolated, quiet, withdrawn. He reports command hallucinations to kill himself and other. He feels very depressed and pessimistic. Mental status exam: Alert and attentive. Oriented X3 Psychomotor activity: Retarded. Speech: Normal in tone, quality, underproductive. Mood/Affect: Mood is sad and anxious. Affect is congruent and flat. SI and HI: The patient has suicidal and homicidal ideations. Perceptions: Patient has command hallucinations to kill himself and others. Though content/process: There is no evidence of overtly delusional thought content and thought process is goal-directed. Memory and concentration: AOX3, grossly intact for the purposes of this session Judgment and insight: Poor. Assessment: Major depressive disorder with psychosis. H/O Schizophrenia, Schizoaffective disorder, Major depressive disorder. Plan: Continue current medications. Monitor medications and side effects, adjust the dose as needed. Provide supportive psychotherapy. The patient provided psychoeducation and advised
--- NOTE | 2024-04-17 15:01 | P.PN ---
Progress Note - Text Progress Note Date: 04/17/24 Chief complaints: I feel depressed. Subjective: The patient continues to feel the same. He has not responded to any medications. He is still waiting for ECT treatments. His demeanor and activity level is unchanged. He continues to lay in his bed. He remains isolated, quiet, withdrawn. He reports command hallucinations to kill himself and other. He feels very depressed and pessimistic. Mental status exam: Alert and attentive. Oriented X3 Psychomotor activity: Retarded. Speech: Normal in tone, quality, underproductive. Mood/Affect: Mood is sad and anxious. Affect is congruent and flat. SI and HI: The patient has suicidal and homicidal ideations. Perceptions: Patient has command hallucinations to kill himself and others. Though content/process: There is no evidence of overtly delusional thought content and thought process is goal-directed. Memory and concentration: AOX3, grossly intact for the purposes of this session Judgment and insight: Poor. Assessment: Major depressive disorder with psychosis. H/O Schizophrenia, Schizoaffective disorder, Major depressive disorder. Plan: Continue current medications. Monitor medications and side effects, adjust the dose as needed. Provide supportive psychotherapy. The patient provided psychoeducation and advised
--- NOTE | 2024-04-18 15:18 | P.PN ---
Progress Note - Text Progress Note Date: 04/18/24 Chief complaints: I feel hopeless. Subjective: The patient continues to feel the same. He is worried and exhausted. He sits and does not say anything. He expressed some satisfaction because his nails have been clipped. He is still waiting for ECT treatments. His demeanor and activity level is unchanged. He continues to lay in his bed. He remains isolated, quiet, withdrawn. He reports command hallucinations to kill himself and other. He feels very depressed and pessimistic. Mental status exam: Alert and attentive. Oriented X3 Psychomotor activity: Retarded. Speech: Normal in tone, quality, underproductive. Mood/Affect: Mood is sad and anxious. Affect is congruent and flat. SI and HI: The patient has suicidal and homicidal ideations. Perceptions: Patient has command hallucinations to kill himself and others. Though content/process: There is no evidence of overtly delusional thought content and thought process is goal-directed. Memory and concentration: AOX3, grossly intact for the purposes of this session Judgment and insight: Poor. Assessment: Major depressive disorder with psychosis. H/O Schizophrenia, Schizoaffective disorder, Major depressive disorder. Plan: Continue current medications. Monitor medications and side effects, adjust the dose as needed. Provide supportive psychotherapy. The patient provided psychoeducation and advised
--- NOTE | 2024-04-19 15:15 | P.PN ---
Progress Note - Text Progress Note Date: 04/19/24 Chief complaints: I am depressed. Subjective: The patient continues to feel depressed, notes that his voices are the same. He gets command hallucinations. The patient noted that he feel safe on the [place]. He sits and does not say anything. He is very pessimistic and negative. His demeanor and activity level is unchanged. He continues to lay in his bed. He remains isolated, quiet, withdrawn. He reports command hallucinations to kill himself and other. He feels very depressed and pessimistic. Mental status exam: Alert and attentive. Oriented X3 Psychomotor activity: Retarded. Speech: Normal in tone, quality, underproductive. Mood/Affect: Mood is sad and anxious. Affect is congruent and flat. SI and HI: The patient has suicidal and homicidal ideations. Perceptions: Patient has command hallucinations to kill himself and others. Though content/process: There is no evidence of overtly delusional thought content and thought process is goal-directed. Memory and concentration: AOX3, grossly intact for the purposes of this session Judgment and insight: Poor. Assessment: Major depressive disorder with psychosis. H/O Schizophrenia, Schizoaffective disorder, Major depressive disorder. Plan: Continue current medications. Monitor medications and side effects, adjust the dose as needed. Provide supportive psychotherapy. The patient provided psychoeducation and advised
--- NOTE | 2024-04-20 14:53 | P.PN ---
Progress Note - Text Interval history: Patient was seen and was directable and agreeable to speak with internal communications writer.reports depression. Reports command hallucinations telling him to eat his own feces and drink his own music urine. Reports suicidal ideations as a result. Reports some visual hallucinations of laughing emoji in his head. Denies homicidal ideations.. A Patient denies any side effects from the medications and has been compliant with meds. Mental status exam: General Appearance: [Patient appears to be stated age is alert, directable, and cooperative.] Behavior: [No agitated behavior. Patient is calm and directable] Speech: Patient's speech is fluent and nonpressured. Mood/Affect: Mood is "the same", affect is congruent and constricted. Suicidality/Homicidality: report suicidal ideations, Patient denies having homicidal ideation intent or plan. Perceptions: + auditory and visual hallucinations. Though content/process: [There is no evidence of any delusional thought content and thought process is linear and goal-directed.] Memory and concentration: AOX3, grossly intact for the purposes of this session Judgment and insight: improving mildly Assessment/Plan: Continue with current diagnosis. Patient continues to meet criteria for inpatient psychiatric admission for symptom stabilization and safety.[Patient will be maintained on current psychotropic medication regimen.] Monitor for medication compliance and for any psychotropic medication side effects. Will continue to monitor ongoing response to treatment. Encouraged participation in milieu.
--- NOTE | 2024-04-21 22:40 | P.PN ---
Progress Note - Text Interval history: Patient was seen and was directable and agreeable to speak with customs entry writer.reports depression. Reports command hallucinations telling him to eat his own feces and drink his own music urine. Reports suicidal ideations as a result. Reports some visual hallucinations of laughing emoji in his head. Denies homicidal ideations.. A Patient denies any side effects from the medications and has been compliant with meds. Mental status exam: General Appearance: [Patient appears to be stated age is alert, directable, and cooperative.] Behavior: [No agitated behavior. Patient is calm and directable] Speech: Patient's speech is fluent and nonpressured. Mood/Affect: Mood is "the same", affect is congruent and constricted. Suicidality/Homicidality: report suicidal ideations, Patient denies having homicidal ideation intent or plan. Perceptions: + auditory and visual hallucinations. Though content/process: [There is no evidence of any delusional thought content and thought process is linear and goal-directed.] Memory and concentration: AOX3, grossly intact for the purposes of this session Judgment and insight: improving mildly Assessment/Plan: Continue with current diagnosis. Patient continues to meet criteria for inpatient psychiatric admission for symptom stabilization and safety.[Patient will be maintained on current psychotropic medication regimen.] Monitor for medication compliance and for any psychotropic medication side effects. Will continue to monitor ongoing response to treatment. Encouraged participation in milieu.
--- NOTE | 2024-04-22 13:53 | P.PN ---
Progress Note - Text Progress Note Date: 04/22/24 Chief complaints: I am depressed. Subjective: The patient continues to feel depressed, notes that his voices are the same. He gets command hallucinations. The patient noted that he feels safe on the [place]. He sits and does not iniiiate any conversation. He remains withdrawn and isolated. His demeanor and activity level is unchanged. He continues to lay in his bed. He remains isolated, quiet, withdrawn. He reports command hallucinations to kill himself and other. He feels very depressed and pessimistic. Mental status exam: Alert and attentive. Oriented X3 Psychomotor activity: Retarded. Speech: Normal in tone, quality, underproductive. Mood/Affect: Mood is sad and anxious. Affect is congruent and flat. SI and HI: The patient has suicidal and homicidal ideations. Perceptions: Patient has command hallucinations to kill himself and others. Though content/process: There is no evidence of overtly delusional thought content and thought process is goal-directed. Memory and concentration: AOX3, grossly intact for the purposes of this session Judgment and insight: Poor. Assessment: Major depressive disorder with psychosis. H/O Schizophrenia, Schizoaffective disorder, Major depressive disorder. Plan: Continue current medications. Monitor medications and side effects, adjust the dose as needed. Provide supportive psychotherapy. The patient provided psychoeducation.
--- NOTE | 2024-04-23 15:01 | P.PN ---
Progress Note - Text Progress Note Date: 04/23/24 Chief complaints: I am depressed. Subjective: The patient that he is feeling a little better because he shaved with assistance of nursing staff. And also he is walking a little more than before. He states feeling depressed. His voices are the same. He gets command hallucinations. The patient noted that he feels safe on the [place]. He sits and does not initiate any conversation. He remains withdrawn and isolated. His demeanor and activity level is unchanged. He continues to lay in his bed. He remains isolated, quiet, withdrawn. He reports command hallucinations to kill himself and other. He feels very depressed and pessimistic. Mental status exam: Alert and attentive. Oriented X3 Psychomotor activity: Retarded. Speech: Normal in tone, quality, underproductive. Mood/Affect: Mood is sad and anxious. Affect is congruent and flat. SI and HI: The patient has suicidal and homicidal ideations. Perceptions: Patient has command hallucinations to kill himself and others. Though content/process: There is no evidence of overtly delusional thought content and thought process is goal-directed. Memory and concentration: AOX3, grossly intact for the purposes of this session Judgment and insight: Poor. Assessment: Major depressive disorder with psychosis. H/O Schizophrenia, Schizoaffective disorder, Major depressive disorder. Plan: Continue current medications. Monitor medications and side effects, adjust the dose as needed. Provide supportive psychotherapy. The patient provided psychoeducation.
--- NOTE | 2024-04-24 15:15 | P.PN ---
Progress Note - Text Progress Note Date: 04/24/24 Chief complaints: I am depressed. Subjective: The patient had cut his hair this morning. He appearance was much better than before. When asked. If his depression is improving because he is showing interest in taking care of himself, the patient denied. He continues to feel depressed with no change in intensity and severity. He reports the same symptoms and does not trust himself. His voices are the same. He gets command hallucinations. The patient noted that he feels safe on the [place]. He sits and does not initiate any conversation. He remains withdrawn and isolated. His demeanor and activity level is unchanged. He continues to lay in his bed. He remains isolated, quiet, withdrawn. He reports command hallucinations to kill himself and other. He feels very depressed and pessimistic. Mental status exam: Alert and attentive. Oriented X3 Psychomotor activity: Retarded. Speech: Normal in tone, quality, underproductive. Mood/Affect: Mood is sad and anxious. Affect is congruent and flat. SI and HI: The patient has suicidal and homicidal ideations. Perceptions: Patient has command hallucinations to kill himself and others. Though content/process: There is no evidence of overtly delusional thought content and thought process is goal-directed. Memory and concentration: AOX3, grossly intact for the purposes of this session Judgment and insight: Poor. Assessment: Major depressive disorder with psychosis. H/O Schizophrenia, Schizoaffective disorder, Major depressive disorder. Plan: Continue current medications. Monitor medications and side effects, adjust the dose as needed. Provide supportive psychotherapy. The patient provided psychoeducation.
--- NOTE | 2024-04-25 15:54 | P.PN ---
Progress Note - Text Progress Note Date: 04/25/24 Chief complaints: I am depressed. Subjective: The patient noted that he [place] going [place] [facility] [place] first and then go for ECT from there. He noted that the plan has changed. He was informed this by the social service agency director this morning. He noted that [facility] and [facility] that he is going to a step-down and will be under supervision to go for ECT. The patient was asked, if is feeling better and not suicidal, the patient noted no his symptoms are the same. When asked if he can act on his command hallucinations, the patient noted that it is possible. He wants to go to [place] [facility] [place]. When asked what has changed that he feels safe now, the patient noted that no treatment is working here. Mental status exam: Alert and attentive. Oriented X3 Psychomotor activity: Improved. Speech: Normal in tone, quality, underproductive. Mood: I feel the same. Affect: Brighter as compared to the past. SI and HI: The patient has suicidal and homicidal ideations. Perceptions: Patient has command hallucinations to kill himself and others. Though content/process: There is no evidence of overtly delusional thought content and thought process is goal-directed. Memory and concentration: AOX3, grossly intact for the purposes of this session Judgment and insight: Poor. Assessment: Major depressive disorder with psychosis. H/O Schizophrenia, Schizoaffective disorder, Major depressive disorder. Plan: Continue current medications. Monitor medications and side effects, adjust the dose as needed. Provide supportive psychotherapy. The patient provided psychoeducation.
[2024-04-26 06:33] VITALS: BP 125/72; PULSE 71; RESP 18; TEMP 97.9
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
[2024-04-26] MEDS ORDERED: traZODone HCL 100 MG TAB PO SCH ×2 (21:00)
[2024-04-27] MEDS ORDERED: PARoxetine 10 MG TAB PO SCH ×2 (09:00)
== END 2024-04-26 15:07 | disposition home or self-care (01) | DRG 751 ==
LOC: 3MHU 03:58
PROVIDERS: ADMIT Psychiatry & Neurology Psychiatry; ATTEND Psychiatry & Neurology Psychiatry
DX: F33.3 Major depressive disorder, recurrent, severe with psychotic symptoms (principal); I95.2 Hypotension due to drugs; R45.850 Homicidal ideations; I95.89 Other hypotension; R45.851 Suicidal ideations; F10.11 Alcohol abuse, in remission; E66.9 Obesity, unspecified; Z68.32 Body mass index [BMI] 32.0-32.9, adult; F84.0 Autistic disorder; F41.9 Anxiety disorder, unspecified; K92.1 Melena; T50.905A Adverse effect of unspecified drugs, medicaments and biological substances, initial encounter; R41.843 Psychomotor deficit; Q74.2 Other congenital malformations of lower limb(s), including pelvic girdle; Q74.0 Other congenital malformations of upper limb(s), including shoulder girdle; Z56.0 Unemployment, unspecified; Z81.8 Family history of other mental and behavioral disorders; Z87.820 Personal history of traumatic brain injury; Z59.00 Homelessness unspecified; Z79.899 Other long term (current) drug therapy; Z63.8 Other specified problems related to primary support group
CPT/HCPCS: 80048; 80053; 80061; 80173; 80178; 81003; 82272; 83036; 84443; 84450; 84460; 84484; 85025; 86140; 87040; 87635; 87636; 93005; 99285